=== PATIENT | female | born 1975 | race Caucasian/White ===

== ENCOUNTER 2018-05-27 00:03 | Emergency (ER) | payer OTHER ==
[2018-05-27 00:38] LABS: ABS Basophils 0 10^3/ul (0-0.2); ABS Eosinophils 0.1 10^3/ul (0-0.6); ABS Lymphocytes 1.9 10^3/ul (1.0-4.8); ABS Monocytes 0.5 10^3/ul (0-0.8); ABS Nucleated RBC 0 10^3/ul; Eosinophil % 1.8 % (0-6); Hematocrit 40 % (35-47); Hemoglobin 13.3 g/dl (12.0-16.0); Lymphocyte % 28.8 % (25-47); Mean Corpuscular HGB Conc 33 g/dl (31-36); Mean Corpuscular Hemoglobin 27 pg (27-31); Mean Corpuscular Volume 82 fL (80-97); Mean Platelet Volume 7.6 um3 (7.4-10.4); Nucleated Red Blood Cells % 0.1; Platelet Count 280 10^3/ul (150-450); Red Blood Count 4.87 10^6/ul (4.00-5.40); Red Cell Distribution Width 14 % (10.5-15); White Blood Count 6.6 10^3/ul (3.5-10.8)
[2018-05-27 00:58] LABS: EGFR Non-African American 62.8 (>60)
[2018-05-27] MEDS ORDERED: Morphine VIAL* 4 MG/ML VIAL (1 ml vial) IV ONE ×2 (00:58→02:36)
[2018-05-27] MEDS ORDERED: Ondansetron INJ* 2 MG/ML VIAL IV ONE (00:58)
[2018-05-27] MEDS ORDERED: NS 0.9% 1000 ML* 1,000 ML IV ONE (00:58)
--- NOTE | 2018-05-27 01:07 | ED ---
Abdominal Pain/Female - HPI Summary HPI Summary: The patient is a 43 y/o F presenting to [facility] with a chief complaint of intermittent RUQ pain starting three days ago. There was a sudden onset of pain that hasn't stopped and is worsening, currently rated 10/10 in severity. She additionally c/o nausea without vomiting and some pain the back. She denies abnormal urination and BM and fevers. She has only had a similar pain when she had a cholecystectomy. - History of Current Complaint Chief Complaint: EDAbdPain Stated Complaint: ABD PAIN Time Seen by Provider: 05/27/18 00:53 Hx Obtained From: Patient Onset/Duration: Sudden Onset, Lasting Days - three, Still Present Timing: Intermittent Episode Lasting Severity Initially: Moderate Severity Currently: Severe Pain Intensity: 10 Pain Scale Used: 0-10 Numeric Location: Discrete At: RUQ Radiates: No Aggravating Factor(s): Other: - palpation to back Alleviating Factor(s): Nothing Associated Signs and Symptoms: Positive: Nausea, Other: - POSITIVE: back pain; NEGATIVE: abnormal BM or urination, vomiting, fevers. Negative: Vomiting Allergies/Adverse Reactions: Allergies Allergy/AdvReac Type Severity Reaction Status Date / Time verapamil Allergy Intermediate Hives Verified 05/27/18 00:08 gabapentin [From Neurontin] Allergy Hives Verified 05/27/18 00:08 Home Medications: Home Medications Albuterol 2.5MG/3ML (0.083%)* [Ventolin 2.5 MG/3 ML NEB.YOANNA*] 2.5 mg INH Q6H PRN 05/27/18 [History Confirmed 05/27/18] Albuterol HFA INHALER* [Ventolin HFA Inhaler*] 2 puff INH Q4H PRN 05/27/18 [ History Confirmed 05/27/18] DULoxetine DR CAP* [Cymbalta CAP*] 60 mg PO DAILY 05/27/18 [History Confirmed ] Furosemide TAB* [Lasix TAB*] 40 mg PO DAILY 05/27/18 [History Confirmed 05/27/18 ] Lurasidone(*) [Latuda] 120 mg PO DAILY 05/27/18 [History Confirmed 05/27/18] Pantoprazole TAB (NF) [Protonix TAB (NF)] 40 mg PO DAILY 05/27/18 [History Confirmed 05/27/18] Spironolactone [Aldactone 50 MG-] 50 mg PO DAILY 05/27/18 [History Confirmed 02/06] Tiotropium Br/Olodaterol HCl [Stiolto Respimat Inhal [place]] 2 puff PO DAILY 02/06 [History Confirmed 05/27/18] busPIRone TAB* [Buspar TAB*] 5 mg PO TID 05/27/18 [History Confirmed 05/27/18] rOPINIRole TAB* [Requip TAB*] 0.5 mg PO TID 05/27/18 [History Confirmed 05/27/18 ] traZODone TAB* [Desyrel TAB*] 150 mg PO BEDTIME 05/27/18 [History Confirmed 02/06] PMH/Surg Hx/FS Hx/Imm Hx Endocrine/Hematology History: Denies: Hx Diabetes Respiratory History: Denies: Hx Asthma Sensory History: Reports: Hx Contacts or Glasses Denies: Hx Deafness Opthamlomology History: Reports: Hx Contacts or Glasses Denies: Hx Legally Blind EENT History: Denies: Hx Deafness - Surgical History Surgery Procedure, Year, and Place: cholecystectomy Infectious Disease History: No Infectious Disease History: Denies: Traveled Outside the [place] in Last 30 Days - Family History Known Family History: Positive: Diabetes Review of Systems Negative: Fever Positive: Abdominal Pain - RUQ, Nausea, Other - NEGATIVE: abnormal BM. Negative : Vomiting Genitourinary: Other - NEGATIVE: abnormal urination Positive: Other - mild back pain All Other Systems Reviewed And Are Negative: Yes Physical Exam - Summary Physical Exam Summary: Appearance: Well-appearing, Well-nourished, lying in bed comfortably Skin: Warm, dry, no obvious rash Eyes: sclera anicteric, no conjunctival pallor ENT: mucous membranes moist, pharynx appears normal Neck: Supple, nontender Respiratory: Clear to auscultation, no signs of respiratory distress Cardiovascular: Normal S1, S2. No murmurs. Normal distal pulses in tibial and radial bilaterally. Abdomen: Soft, nontender, normal active bowel sounds present Musculoskeletal: Normal, Strength/ROM Intact Neurological: A&Ox3, awake and alert, mentation is normal, speech is fluent and appropriate Psychiatric: affect is normal, does not appear anxious or depressed Triage Information Reviewed: Yes Vital Signs On Initial Exam: Initial Vitals Temp Pulse Resp BP Pulse Ox 96.9 F 81 16 132/78 98 05/27/18 00:04 05/27/18 00:04 05/27/18 00:04 05/27/18 00:04 05/27/18 00:04 Vital Signs Reviewed: Yes Diagnostics - Vital Signs Vital Signs Temp Pulse Resp BP Pulse Ox 05/27/18 00:04 96.9 F 81 16 132/78 98 - Laboratory Lab Results: Lab Results 05/27/18 Range/Units 00:27 WBC 6.6 (3.5-10.8) 10^3/ul RBC 4.87 (4.00-5.40) 10^6/ul Hgb 13.3 (12.0-16.0) g/dl Hct 40 (35-47) % MCV 82 (80-97) fL MCH 27 (27-31) pg MCHC 33 (31-36) g/dl RDW 14 (10.5-15) % Plt Count 280 (150-450) 10^3/ul MPV 7.6 (7.4-10.4) um3 Neut % (Auto) 60.8 (38-83) % Lymph % (Auto) 28.8 (25-47) % Conway % (Auto) 8.1 H (0-7) % Eos % (Auto) 1.8 (0-6) % Baso % (Auto) 0.5 (0-2) % Absolute Neuts (auto) 4.0 (1.5-7.7) 10^3/ul Absolute Lymphs (auto) 1.9 (1.0-4.8) 10^3/ul Absolute Monos (auto) 0.5 (0-0.8) 10^3/ul Absolute Eos (auto) 0.1 (0-0.6) 10^3/ul Absolute Basos (auto) 0 (0-0.2) 10^3/ul Absolute Nucleated RBC 0 10^3/ul Nucleated RBC % 0.1 Result Diagrams: 05/27/18 00:27 05/27/18 00:27 Lab Statement: Any lab studies that have been ordered have been reviewed, and results considered in the medical decision making process. Abdominal Pain Fem Course/Dx - Diagnoses Provider Diagnoses: RUQ abdominal pain, Constipation, History of gastric bypass Discharge - Sign-Out/Discharge Documenting (check all that apply): Sign-Out Patient Signing out patient TO: Ryan Castaneda - Patient is a sign-out to Dr. Castaneda at shift change, pending Abd/Pel CT results and disposition. Receiving patient FROM: Gal Peterson - Discharge Plan Condition: Improved Disposition: HOME Prescriptions: Docusate Sodium [Colace] 100 mg PO BID PRN #30 capsule PRN Reason: Constipation Hyoscyamine Sulfate [Levsin/Sl] 0.125 mg SL Q4H PRN #30 sub PRN Reason: abdominal cramping Polyethylene Glycol 3350* [Miralax*] 17 gm PO TID PRN #1 bottle PRN Reason: Constipation traMADol TAB* [Ultram*] 50 mg PO Q6HR PRN #10 tab MDD 4 PRN Reason: Severe Pain Patient Education Materials: Constipation (ED), Acute Abdominal Pain (ED) Forms: *Work Release Referrals: [facility] [Outside] [facility] REFERRAL [Outside] - 3 Days Additional Instructions: High fiber diet. Drink plenty of fluids, natural fruit juices will help. Return if worse, fever, vomiting, or other concerns. - Billing Disposition and Condition Condition: IMPROVED Disposition: Home - Attestation Statements Document Initiated by Magaly: Yes Documenting Scribe: Lisa Tinoco Provider For Whom Magaly is Documenting (Include Credential): Dr. Gal Peterson MD Scribe Attestation: Lisa Wheeler scribed for Dr. Gal Peterson MD on 05/27/18 at 1916. Scribe Documentation Reviewed: Yes Provider Attestation: The documentation as recorded by the Lisa fowler accurately reflects the service I personally performed and the decisions made by me, Dr. Gal Peterson MD
[2018-05-27] MEDS ORDERED: Morphine INJ* 4 MG/ML 1 ML SYRINGE (NEW SYRINGE VERSION) ONE (01:49)
[2018-05-27 02:45] LABS: Urine Appearance Clear; Urine Blood Negative (Negative); Urine Color Yellow; Urine Ketones Negative (Negative); Urine Protein Negative (Negative); Urine Specific Gravity 1.015 (1.010-1.030); Urine Urobilinogen Negative (Negative)
[2018-05-27] MEDS ORDERED: Iohexol 300* (CONTRAST) 10 ML SDV IV ONE (05:40)
--- NOTE | 2018-05-27 08:13 | RAD ---
INDICATION: Severe RIGHT-sided abdominal pain. Previous cholecystectomy. COMPARISON: No relevant prior exams available on the [facility] P[facility] for comparison. TECHNIQUE: Multidetector CT images were obtained from the lung bases to the ischial tuberosities with 143 mL Omnipaque 300 IV and oral contrast. Multiplanar reformation. REPORT: VISUALIZED INFERIOR THORAX: Unremarkable visualized inferior thorax. LIVER / GALLBLADDER / PANCREAS / SPLEEN: Post cholecystectomy. Mild prominence of the intra and extrahepatic bile ducts. No conspicuous stones or lesion along the course of the common bile duct. Negative for focal liver lesions. Mild prominence of the pancreatic duct. Unremarkable spleen. ALIMENTARY TRACT: Postsurgical change of Justin-en-Y gastric bypass. Small volume of contrast extends to the excluded segment of the stomach. No CT abnormality of the small bowel loops evident. Unremarkable appendix visualized medial to the cecum. Unremarkable colon with moderate stool. Negative for ascites, free air, or significant hernias.. MESENTERIC: Unremarkable. ADRENAL / GENITOURINARY: Normal adrenal glands and unremarkable kidneys with symmetric nephrograms and pyelograms. Unremarkable nondilated ureters. Largely decompressed urinary bladder limiting assessment without gross abnormality. Post hysterectomy. Unremarkable adnexal regions. RETROPERITONEAL: Negative for lymphadenopathy. VASCULAR: Unremarkable abdominal aorta and iliac arteries. Physiologic distention of the IVC. BONES: Unremarkable. SOFT TISSUE: Unremarkable. IMPRESSION: #. Mild biliary and pancreatic duct dilatation without visualized stone or obstructing lesion. Consider ultrasound for further assessment of the common bile duct. Post cholecystectomy. #.Postsurgical change of Justin-en-Y gastric bypass. Small volume of contrast extends to the excluded segment of the stomach concerning for fistula or dehiscence at the gastric staple line. There are no prior exams for comparison to determine chronicity of this finding. #. Normal appendix documented. #. Negative for ascites or free air. #. Negative for obstructive uropathy.
--- NOTE | 2018-05-27 08:23 | ED ---
Progress - Progress Note Progress Note: Receiving patient sign-out from Dr. Peterson. Patient is still in pain and now states Hx of gastric bypass surgery. CT Abd/Pelvis report: Mild biliary and pancreatic duct dilation without visualized stone or obstructing lesion. Consider ultrasound for further assessment of the common bile duct. Post cholecystectomy. Postsurgical change fo Justin-en-y gastric bypass. Small volume of contrast extends to the excluded segment of the stomach concerning for fistula or dehiscence at the gastric staple line. There are no prior exams for comparison to determine chronicity of this finding. Normal appendix documented. Negative for ascites or free air. Negative for obstructive uropathy. ED Provider has reviewed this report. Morphine did not relieve pain. Switched to 30 mg Toradol. Abdomen U/S results: Mild intra and extrahepatic biliary dilation. No conspicuous stones within the visualized common bile duct. Post cholecystectomy. ED provider has reviewed this report. Plan for discharge. - EKG/XRAY/CT CT: CT A/P Re-Evaluation - Re-Evaluation First Eval Re-Evaluation Time: 08:18 Change: Unchanged Comment: Pt still in pain and now reports Hx of gastric bypass. Second Eval Re-Evaluation Time: 09:20 Change: Unchanged Comment: Morphine is not reducing pain levels. Discussed imaging results and plan to switch to different pain medication. Course/Dx - Course Course Of Treatment: Patient status post gastric bypass with right upper quadrant abdominal pain status post cholecystectomy. CT shows biliary duct dilation. Stone was ruled out with ultrasound. Laboratories are normal. There is significant amount of stool in the area of discomfort. There is also concerned that there may be contrast getting into the remanent stomach after her gastric bypass. She is instructed to follow this up with her surgeon. Pain is improved and she was discharged on symptom control and will follow-up with her doctor in [place], [place]. - Diagnoses Provider Diagnoses: RUQ abdominal pain, Constipation, History of gastric bypass Discharge - Sign-Out/Discharge Documenting (check all that apply): Patient Departure - Discharge, Receiving Sign-Out Receiving patient FROM: Gal Peterson - Discharge Plan Condition: Improved Disposition: HOME Prescriptions: Docusate Sodium [Colace] 100 mg PO BID PRN #30 capsule PRN Reason: Constipation Hyoscyamine Sulfate [Levsin/Sl] 0.125 mg SL Q4H PRN #30 sub PRN Reason: abdominal cramping Polyethylene Glycol 3350* [Miralax*] 17 gm PO TID PRN #1 bottle PRN Reason: Constipation traMADol TAB* [Ultram*] 50 mg PO Q6HR PRN #10 tab MDD 4 PRN Reason: Severe Pain Patient Education Materials: Constipation (ED), Acute Abdominal Pain (ED) Forms: *Work Release Referrals: [facility] [Outside] [facility] REFERR[facility] [Outside] - 3 Days Additional Instructions: High fiber diet. Drink plenty of fluids, natural fruit juices will help. Return if worse, fever, vomiting, or other concerns. - Billing Disposition and Condition Condition: IMPROVED Disposition: Home - Attestation Statements Document Initiated by Magaly: Yes Documenting Scribe: Marcelo Fulton Provider For Whom Magaly is Documenting (Include Credential): Ryan Castaneda MD Scribe Attestation: Marcelo Wheeler, scribed for Ryan Castaneda MD on 05/27/18 at 1326. Scribe Documentation Reviewed: Yes Provider Attestation: The documentation as recorded by the Marcelo fowler accurately reflects the service I personally performed and the decisions made by , Ryan Castaneda MD
[2018-05-27] MEDS ORDERED: Ketorolac INJ* 30 MG/ML 1 ML VIAL IV PUSH ONE (09:20)
--- NOTE | 2018-05-27 09:23 | RAD ---
Indication: RIGHT upper quadrant and epigastric pain. Post cholecystectomy with mild biliary and pancreatic duct dilatation noted on CT of the same date. Comparison: CT of the same date. Technique: RIGHT upper quadrant ultrasound. Report: Appropriate direction flow documented in the portal and hepatic veins. 18.6 cm liver is normal in echogenicity. Negative for focal hepatic lesions. Mild prominence of the intrahepatic bile ducts. 8.9 mm common bile duct. No conspicuous stones within the visualized common bile duct. Post cholecystectomy. Negative for sonographic Collazo's sign. Mild prominence of the pancreatic duct as noted on CT. The pancreatic tail is partially obscured due to bowel gas. No focal pancreatic lesion or peripancreatic inflammatory change evident. Negative for ascites. 10.3 cm RIGHT kidney is unremarkable. IMPRESSION: #. Mild intra and extrahepatic biliary dilatation. No conspicuous stones within the visualized common bile duct. #. Post cholecystectomy.
[2018-05-27 10:19] VITALS: BP 114/79
== END 2018-05-27 09:35 | disposition home or self-care (01) ==
LOC: ED 00:03
DX: R10.11 Right upper quadrant pain (principal); K59.00 Constipation, unspecified; Z98.84 Bariatric surgery status
CPT/HCPCS: 36415; 74177; 76705; 80053; 81003; 83605; 83690; 85025; 86140; 96374; 96375; 96376; 99282; J1885; J2270; J2405; Q9967

== ENCOUNTER 2018-09-08 23:59 | Emergency (ER) | payer BC ==
[2018-09-09] MEDS ORDERED: Ketorolac INJ* 30 MG/ML 1 ML VIAL IM ONE (01:48)
[2018-09-09] MEDS ORDERED: oxyCODONE/Acetamin 5/325 MG* TAB PO ONE (01:48)
[2018-09-09] MEDS ORDERED: predniSONE TAB* 20 MG PO ONE (01:49)
[2018-09-09] MEDS ORDERED: Cyclobenzaprine TAB* 10 MG PO ONE (01:49)
--- NOTE | 2018-09-09 01:54 | ED ---
Back Pain - HPI Summary HPI Summary: This patient is a 43 year old F presenting to [facility] with a chief complaint of right sided back pain since 23:00. Patient reports that the pain radiates to the back of her right leg, down her right arm, and across her abdomen. The patient rates the pain 9/10 in severity. Symptoms aggravated by ambulating. Symptoms alleviated by position and rest. 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 Pt denies any urinary symptoms. Hx sciatica a few years ago but notes that it resolved. - History of Current Complaint Chief Complaint: EDBackInjuryPain Stated Complaint: SEVERE FLANK PAIN Time Seen by Provider: 09/09/18 01:40 Hx Obtained From: Patient Onset/Duration: Sudden Onset, Lasting Hours, Still Present Onset/Duration: Started Hours Ago Timing: Constant Back Pain Location: Is Discrete @ - right back, Radiates To - right arm, right leg, and abdmen Severity Initially: Moderate Severity Currently: Moderate Pain Intensity: 9 Pain Scale Used: 0-10 Numeric Aggravating Symptom(s): Movement, Walking Alleviating Symptom(s): Rest Associated Signs And Symptoms: Negative: Bladder Incontinence - Allergies/Home Medications Allergies/Adverse Reactions: Allergies Allergy/AdvReac Type Severity Reaction Status Date / Time verapamil Allergy Intermediate Hives Verified 07/04/18 20:32 Carbamates Allergy Unknown Verified 07/05/18 11:25 Reaction Details gabapentin [From Neurontin] Allergy Hives Verified 07/04/18 20:32 morphine Allergy Unknown Verified 07/05/18 11:25 Reaction Details Penicillins Allergy Unknown Verified 07/05/18 11:25 Reaction Details PMH/Surg Hx/FS Hx/Imm Hx Endocrine/Hematology History: Denies: Hx Diabetes, Hx Sickle Cell Disease Cardiovascular History: Denies: Hx Hypertension Respiratory History: Denies: Hx Asthma History: Denies: Hx Renal Disease Musculoskeletal History: Reports: Other Musculoskeletal History - sciatica Sensory History: Reports: Hx Contacts or Glasses Denies: Hx Legally Blind, Hx Deafness Opthamlomology History: Reports: Hx Contacts or Glasses Denies: Hx Legally Blind Psychiatric History: Reports: Hx Anxiety, Hx Post Traumatic Stress Disorder, Hx Bipolar Disorder, Other Psychiatric Issues/Disorders - borderline personality disorder - Surgical History Surgery Procedure, Year, and Place: cholecystectomy Infectious Disease History: No Infectious Disease History: Denies: Traveled Outside the [place] in Last 30 Days - Family History Known Family History: Positive: Diabetes - Social History Alcohol Use: None Substance Use Type: Reports: None Smoking Status (MU): Never Smoked Tobacco Review of Systems Negative: Fever Negative: Epistaxis Negative: Chest Pain Positive: Abdominal Pain Musculoskeletal: Other - right back pain, right arm pain, right leg pain All Other Systems Reviewed And Are Negative: Yes Physical Exam - Summary Physical Exam Summary: VITAL SIGNS: Reviewed. GENERAL: Patient is a well-developed and nourished FEMALE who is lying comfortable in the stretcher. Patient is not in any acute respiratory distress. HEAD AND FACE: No signs of trauma. No ecchymosis, hematomas or skull depressions. No sinus tenderness. EYES: PERRLA, EOMI x 2, No injected conjunctiva, no nystagmus. EARS: Hearing grossly intact. Ear canals and tympanic membranes are within normal limits. MOUTH: Oropharynx within normal limits. NECK: Supple, trachea is midline, no adenopathy, no JVD, no carotid bruit, no c- spine tenderness, neck with full ROM. CHEST: Symmetric, no tenderness at palpation LUNGS: Clear to auscultation bilaterally. No wheezing or crackles. CVS: Regular rate and rhythm, S1 and S2 present, no murmurs or gallops appreciated. ABDOMEN: Soft, non-tender. No signs of distention. No rebound no guarding, and no masses palpated. Bowel sounds are normal. Tenderness over the right mid- buttock and right lumbosacral region. EXTREMITIES: no edema, no cyanosis or clubbing. Right straight leg test positive at 10 degrees. NEURO: Alert and oriented x 3. No acute neurological deficits. Speech is normal and follows commands. : No urinary symptoms present SKIN: Dry and warm Triage Information Reviewed: Yes Vital Signs On Initial Exam: Initial Vitals Temp Pulse Resp BP Pulse Ox 96.3 F 75 22 118/80 98 09/09/18 00:01 09/09/18 00:01 09/09/18 00:01 09/09/18 00:01 09/09/18 00:01 Vital Signs Reviewed: Yes Diagnostics - Vital Signs Vital Signs Temp Pulse Resp BP Pulse Ox 09/09/18 00:01 96.3 F 75 22 118/80 98 - Laboratory Lab Statement: Any lab studies that have been ordered have been reviewed, and results considered in the medical decision making process. Back Pain Course/Dx - Course Course Of Treatment: This patient is a 43 year old F with Hx sciatica presenting to [facility] with a chief complaint of right sided back pain since 23: 00. Patient reports that the pain radiates to the back of her right leg, down her right arm, and across her abdomen. The patient rates the pain 9/10 in severity. Symptoms aggravated by ambulating. Symptoms alleviated by position and rest. Pt denies any urinary symptoms. In the ED course the patient was given prednisone, toradol, oxycodone, and flexeril. Patient will be discharged with follow up from PCP. The patient is agreeable with this plan. - Diagnoses Provider Diagnoses: Sciatica Discharge - Sign-Out/Discharge Documenting (check all that apply): Patient Departure - discharge - Discharge Plan Condition: Stable Disposition: HOME Prescriptions: Cyclobenzaprine TAB* [Flexeril 10 MG TAB*] 10 mg PO TID PRN #20 tab MDD 3 PRN Reason: Spasms - Muscle Oxycodone/ASA 5/325 (NF) [Percodan 5/325 (NF)] 1 tab PO Q6H PRN #14 tab MDD 4 PRN Reason: Pain predniSONE TAB* [Deltasone TAB*] 50 mg PO DAILY #5 tab Patient Education Materials: Sciatica (ED) Referrals: [facility] [Outside] Additional Instructions: Follow up with primary care physician in 1-2 days. Return to the emergency department with any new or worsening symptoms. - Attestation Statements Document Initiated by Scribe: Yes Documenting Scribe: Little Rendon Provider For Whom Magaly is Documenting (Include Credential): Marilynn Lau MD Scribe Attestation: Little Wheeler scribed for Marilynn Lau MD on 09/09/18 at 0330. Status of Scribe Document: Ready
[2018-09-09 04:08] VITALS: BP 128/78
== END 2018-09-09 04:00 | disposition home or self-care (01) ==
LOC: ED 23:59
DX: M54.41 Lumbago with sciatica, right side (principal); Z90.49 Acquired absence of other specified parts of digestive tract; Z88.5 Allergy status to narcotic agent; Z88.0 Allergy status to penicillin; Z88.8 Allergy status to other drugs, medicaments and biological substances
CPT/HCPCS: 96372; 99283; A9270-GY; J1885; J7512

== ENCOUNTER 2018-09-30 16:56 | Observation (INO) | payer BC ==
[2018-09-30] MEDS ORDERED: NS 0.9% 1000 ML** 1,000 ML IV ONE (17:01)
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
[2018-09-30] MEDS ORDERED: Iodixanol* (CONTRAST) 320 MG/ML 100 ML SDV IV ONE (17:19)
[2018-09-30 17:46] LABS: ABS Basophils 0 10^3/ul (0-0.2); ABS Eosinophils 0.1 10^3/ul (0-0.6); ABS Lymphocytes 1.4 10^3/ul (1.0-4.8); ABS Monocytes 0.4 10^3/ul (0-0.8); ABS Neutrophils 4.4 10^3/ul (1.5-7.7); ABS Nucleated RBC 0 10^3/ul; Eosinophil % 1.1 %; Hematocrit 40 % (35-47); Hemoglobin 13.1 g/dl (12.0-16.0); Lymphocyte % 22.3 %; Mean Corpuscular HGB Conc 33 g/dl (31-36); Mean Corpuscular Hemoglobin 26 pg (27-31); Mean Corpuscular Volume 80 fL (80-97); Mean Platelet Volume 7.6 fL (7.4-10.4); Nucleated Red Blood Cells % 0; Platelet Count 314 10^3/ul (150-450); Red Blood Count 5.02 10^6/ul (4.00-5.40); Red Cell Distribution Width 14 % (10.5-15); White Blood Count 6.3 10^3/ul (3.5-10.8)
[2018-09-30 17:56] LABS: Activated Partial Thrombo Time 34.4 seconds (26.0-36.3); INR 0.8 (0.77-1.02)
[2018-09-30 18:02] LABS: Albumin 4.3 g/dL (3.2-5.2); Albumin/Globulin Ratio 1.8 (1-3); BUN/Creatinine Ratio 18.2 (8-20); Calcium 8.7 mg/dL (8.6-10.3); EGFR Non-African American 53.7 (>60); Globulin 2.4 g/dL (2-4); HDL Cholesterol 65.4 mg/dL; Total Bilirubin 0.2 mg/dL (0.2-1.0); Total Protein 6.7 g/dL (6.4-8.9)
[2018-09-30] MEDS ORDERED: diPHENhydraMINE PO* 50 MG PO ONE (18:18)
[2018-09-30] MEDS ORDERED: Morphine VIAL* 10 MG/ML 1 ML VIAL IV ONE (18:18)
[2018-09-30] MEDS ORDERED: PROCHLORPERAZINE INJ 5 MG/ML 2 ML VIAL IV ONE (18:20)
[2018-09-30] MEDS ORDERED: Aspirin SUPP* 300 MG PR ONE (20:26)
[2018-09-30] MEDS: Acetaminophen TAB* 325 MG PO PRN (21:27)
[2018-09-30] MEDS ORDERED: Albuterol 2.5 MG/3 ML NEB.SOL* (0.083%) INH PRN (22:30)
[2018-09-30] MEDS ORDERED: Docusate CAP* 100 MG PO PRN (22:30)
[2018-09-30] MEDS ORDERED: Cyclobenzaprine TAB* 10 MG PO PRN (22:30)
[2018-09-30] MEDS ORDERED: traZODone TAB* 100 MG PO SCH (23:00)
[2018-09-30] MEDS: busPIRone TAB* 5 MG PO SCH (23:00)
[2018-09-30] MEDS ORDERED: rOPINIRole TAB* 1 MG PO SCH (23:00)
[2018-09-30] MEDS ORDERED: hydrOXYzine HCL TAB* 50 MG PO SCH (23:00)
[2018-09-30] MEDS ORDERED: Lurasidone(*) 120 MG TAB PO SCH (23:00)
[2018-09-30] MEDS ORDERED: Ropinirole TAB* 0.5 MG TAB PO SCH (23:00)
[2018-09-30] MEDS: Pantoprazole TAB * 40 MG TAB PO SCH (23:01)
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
[2018-10-01 07:29] LABS: ABS Basophils 0 10^3/ul (0-0.2); ABS Eosinophils 0.1 10^3/ul (0-0.6); ABS Lymphocytes 1.4 10^3/ul (1.0-4.8); ABS Monocytes 0.3 10^3/ul (0-0.8); ABS Neutrophils 1.9 10^3/ul (1.5-7.7); ABS Nucleated RBC 0 10^3/ul; Eosinophil % 3.1 %; Hematocrit 38 % (35-47); Hemoglobin 12.5 g/dl (12.0-16.0); Lymphocyte % 38.2 %; Mean Corpuscular HGB Conc 33 g/dl (31-36); Mean Corpuscular Hemoglobin 26 pg (27-31); Mean Corpuscular Volume 80 fL (80-97); Mean Platelet Volume 7.5 fL (7.4-10.4); Nucleated Red Blood Cells % 0; Platelet Count 255 10^3/ul (150-450); Red Blood Count 4.79 10^6/ul (4.00-5.40); Red Cell Distribution Width 14 % (10.5-15); White Blood Count 3.8 10^3/ul (3.5-10.8)
[2018-10-01 07:43] LABS: BUN/Creatinine Ratio 17.3 (8-20); Calcium 8.8 mg/dL (8.6-10.3); EGFR Non-African American 53.7 (>60); Potassium 3.7 mmol/L (3.5-5.0)
[2018-10-01 08:22] VITALS: BP 135/69
[2018-10-01] MEDS ORDERED: hydrOXYzine HCL TAB* 50 MG PO SCH (09:00)
[2018-10-01] MEDS ORDERED: Spironolactone TAB* 25 MG PO SCH (09:00)
[2018-10-01] MEDS ORDERED: Aspirin SUPP* 300 MG PR SCH (09:00)
[2018-10-01] MEDS ORDERED: Ropinirole TAB* 0.5 MG TAB PO SCH (09:00)
[2018-10-01] MEDS ORDERED: DULoxetine DR CAP* 60 MG CAP.DR PO SCH (09:00)
[2018-10-01] MEDS: busPIRone TAB* 5 MG PO SCH (09:10)
[2018-10-01] MEDS: Acetaminophen TAB* 325 MG PO PRN (09:10)
[2018-10-01] MEDS: Pantoprazole TAB * 40 MG TAB PO SCH (09:11)
--- NOTE | 2018-10-01 11:26 | ECHO ---
Patient: JEWELS CASTELAN [facility] Rec#: [id number] : 1975 Date: 10/01/2018 Age: 43y Height: 165.1 cm / 65.0 in Weight: 107.05 kg / 235.9 lbs Sex: F BSA: 2.12 Room#: 446 Admit Date#: 09/30/2018 Type: Inpatient Referring: Vibha Bloom Reading: Paul Tang MD Hand Patcher: Krysten Lainez [facility] Transthoracic Echocardiogram Indication: TIA BP: 125/59 HR: 79 Rhythm: NSR Findings History: TIA,bipolar,anxiety,PTSD. Technical Comments: The study quality is good. Completed at 0940. Left Ventricle: The left ventricular chamber size is normal. Mild concentric left ventricular hypertrophy is observed. Global left ventricular wall motion and contractility are within normal limits. There is normal left ventricular systolic function. The estimated ejection fraction is 50-55%. Normal left ventricular diastolic filling is observed. Left Atrium: The left atrium is mildly dilated. Right Ventricle: The right ventricular cavity size is normal. The right ventricular global systolic function is normal. Right Atrium: The right atrial cavity size is normal. There is no patent foramen ovale visualized. There is no evidence of patent foramen ovale shunting. A patent foramen ovale is not demonstrated with color Doppler and agitated contrast. Aortic Valve: The aortic valve is trileaflet. There is no evidence of aortic regurgitation. There is no evidence of aortic stenosis. Mitral Valve: The mitral valve leaflets are mildly thickened. There is trace to mild mitral regurgitation. Tricuspid Valve: The tricuspid valve leaflets are normal. There is no evidence of tricuspid valve regurgitation. Pulmonic Valve: The pulmonic valve structure is not well visualized. There is no evidence of pulmonic regurgitation. There is no pulmonic stenosis. Pericardium: There is no significant pericardial effusion. A pericardial fat pad is visualized. Aorta: The ascending aorta is not well visualized. There is no dilatation of the aortic arch. There is mild dilatation of the aortic root. Pulmonary Artery: The main pulmonary artery is not well visualized. Venous: The venous system is not well visualized. Contrast: Intravenous contrast was used to help determine presence of intracardiac shunting. Intravenous agitated saline contrast was used to assess intracardiac shunting. Conclusions There is normal left ventricular systolic function. The estimated ejection fraction is 50-55%. Global left ventricular wall motion and contractility are within normal limits. The left ventricular chamber size is normal. Mild concentric left ventricular hypertrophy is observed. The left atrium is mildly dilated. Functionally benign heart valves. A patent foramen ovale is not demonstrated with color Doppler nor agitated contrast. There is no prior echocardiogram available to compare with at this time. Measurements Name Value Normal Range RVIDd (AP) 2D 3.1 cm (0.9 - 2.6) RVDdMajor (2D) 3.5 cm (2.2 - 4.4) RAd ISD 4CH 4.5 cm (3.4 - 4.9) RA (A4C)W 4.1 cm (2.9 - 4.6) IVSd (2D) 1 cm (0.6 - 1) LVPWd (2D) 1.3 cm (0.6 - 1) LVIDd (2D) 3.9 cm (3.6 - 5.4) LVIDs (2D) 3 cm - LV FS (2D) 23 % (25 - 45) Aortic Annulus 2.4 cm (1.4 - 2.6) Ao root diameter (2D) 3.9 cm (2.1 - 3.5) Aortic arch 2.2 cm (1.8 - 3.4) Descending Ao 0.7 cm - LA dimension (AP) 2D 3.9 cm (2.3 - 3.8) LAd ISD 4CH 5.5 cm (2.9 - 5.3) LA ISD 4CH W 3.2 cm (2.5 - 4.5) Name Value Normal Range LA ESV SP 4CH (A/L) 42 ml - LA ESV SP 2CH (A/L) 62 ml - LA ESV BP (A/L) 51 ml - LA ESV BP (A/L) index 23.96 ml/m2 - LA ESV SP 4CH (MOD) 39 ml - LA ESV SP 2CH (MOD) 58 ml - Name Value Normal Range MV E-wave Vmax 0.9 m/sec - MV deceleration time 182 msec - MV A-wave Vmax 0.7 m/sec - MV E:A ratio 1.21 ratio - LV septal e' Vmax 0.11 m/sec - LV lateral e' Vmax 0.1 m/sec - LV E:e' septal ratio 8.18 ratio - LV E:e' lateral ratio 9 ratio - Name Value Normal Range AV Vmax 1.3 m/sec - AV VTI 31.6 cm - AV peak gradient 6.58 mmHg - AV mean gradient 3.91 mmHg - LVOT Vmax 1.2 m/sec - LVOT VTI 29.2 cm - LVOT peak gradient 6.2 mmHg - LVOT mean gradient 3.43 mmHg - Name Value Normal Range MR Vmax 4.3 m/sec - MR VTI 170 cm - Name Value Normal Range IVC diameter 1.8 cm - Name Value Normal Range PV Vmax 0.8 m/sec - PV peak gradient 2.67 mmHg -
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
--- NOTE | 2018-10-01 16:32 | DS ---
CC: Nicole Carr NP; Dr. Reece Humphrey; Dr. Errol Underwood * DISCHARGE SUMMARY: DATE OF ADMISSION: 09/30/18 DATE OF DISCHARGE: 10/01/18 PRIMARY CARE PROVIDER: Nicole Carr NP, in [place], [place]. PSYCHIATRIC: Dr. Reece Humphrey in [place], [place]. ATTENDING PHYSICIAN: Dr. Freddy Calhoun * (dictated by Concepcion Peña NP). PRIMARY DIAGNOSIS: Neurological deficits, complicated migraine versus conversion disorder. SECONDARY DIAGNOSES: 1. Bipolar disorder. 2. Anxiety. 3. Posttraumatic stress disorder. 4. Restless legs syndrome. 5. History of conversion disorder. STUDIES WHILE IN THE HOSPITAL: 1. Brain CT on 09/30/18 reads as no evidence for gross acute infarct, mass effect, or hemorrhage. 2. Chest x-ray on 09/30/18 reads as no evidence for acute disease. 3. EKG on 09/30/18 shows normal sinus rhythm with a rate of 88, QTc of 464. No ischemic changes. 4. Head CTA on 09/30/18 reads as no carotid stenosis. No evidence for large- vessel intracranial thrombus. 5. Transthoracic echocardiogram on 10/01/18 reads as there is normal left ventricular systolic function. The estimated ejection fraction is 50% to 55%. Global left ventricular wall motion and contractility are within normal limits. The left ventricular chamber size is normal. Mild concentric left ventricular hypertrophy is observed. The left atrium is mildly dilated. Functionally benign heart valves. A patent foramen ovale is not demonstrated with color Doppler nor agitated contrast. There is no prior echocardiogram available to compare with at this time. HISTORY OF PRESENT ILLNESS AND HOSPITAL COURSE: Ms. Martin is a 43-year-old female with past medical history of bipolar, anxiety, PTSD, and conversion disorder who presented to the emergency room on 09/30/18 with complaints of stroke-like symptoms. Please see history and physical by Tayla Bloom NP, for a complete summary of the events leading up to this hospitalization. In short, the patient reported dizziness, tremors, difficulties with speech, and a headache. She did report tremors and reported that she had hypoglycemia in the 40s when tested on a meter at home. She presented to the emergency room because of her symptoms. In the emergency room, the patient had imaging as noted above. I will note that the patient was able to remove her earrings and transfer herself from the stretcher to the CT machine, although thereafter was reportedly not able to make certain movements and seemed to be exaggerating her symptoms including a slow stuttering speech. She was also noted to use her cellphone without difficulty. She had lab work, which was essentially unremarkable. She did have a glucose of 100. She had a lipid panel, which showed triglycerides of 96, total cholesterol of 236, LDL of 151, and HDL of 65. Because of the concern for a TIA, the patient was admitted by the hospitalist service. The patient reports that her symptoms resolved completely around 9 p.m. last night, the night of admission. This morning, she was seen by Dr. Underwood from neurology, who felt as though her symptoms were likely customer success representative of either a complicated migraine or conversion disorder. There was a very low suspicion for TIA, CVA, or seizures. The patient was anxious to go home and did not want to stay in the hospital any longer. Dr. Underwood felt as though the patient was stable for discharge from a neurological standpoint, although she would need to follow up with him as an outpatient for an MRI and EEG. He did not feel as though she needed to continue on aspirin. I will note that as of this time a hemoglobin A1c is still pending. She did have a mildly elevated creatinine, though this is consistent with results from 2018. On my exam, the patient reports feeling well. She has no neurological deficits and is able to recount the entire episode yesterday. She does admit to having a history of conversion disorder approximately 7 years ago when she was using illicit drugs. She does follow with a psychiatrist, whom she sees regularly. Ms. Martin is stable for discharge today. Vital signs are as follows: Temp 97.6 , heart rate 67, respiratory rate 17, oxygen saturation 99% on room air, blood pressure 135/69. DISCHARGE MEDICATIONS: Continued Medications: 1. Albuterol nebulizer 1 neb q.6 hours p.r.n. wheezing. 2. Albuterol MDI 2 puffs q.4 hours p.r.n. wheezing. 3. Buspirone 5 mg p.o. t.i.d. 4. Cyclobenzaprine 10 mg p.o. t.i.d. p.r.n. muscle spasms. 5. Docusate 100 mg p.o. b.i.d. p.r.n. constipation. 6. Duloxetine 60 mg p.o. daily. 7. Furosemide 40 mg p.o. daily. 8. Hydroxyzine 100 mg p.o. daily. 9. Hydroxyzine 200 mg p.o. at bedtime. 10. Hyoscyamine 0.125 mg sublingual q.4 hours p.r.n. abdominal cramping. 11. Latuda 120 mg p.o. at bedtime. 12. Pantoprazole 80 mg p.o. daily. 13. MiraLAX 17 g p.o. t.i.d. p.r.n. constipation. 14. ReQuip 1 mg p.o. at bedtime. 15. ReQuip 0.5 mg p.o. daily. 16. Spironolactone 50 mg daily. 17. Trazodone 150 mg p.o. at bedtime. DISCHARGE PLAN: Ms. Martin will be discharged to home. Activity will be as tolerated. Diet will be regular as tolerated. Medications are noted above. The patient can continue her usual medications and there are no medication changes at this point. She has been given a note to remain out of work for the next week. She should follow up with her primary care provider as needed and will need to follow up with Dr. Underwood in approximately 1 week. He reports that his office will call her to schedule an appointment. The patient has been advised by Dr. Underwood to monitor her blood pressure, blood sugar and to watch her cholesterol and caffeine intake. She has been advised to return to the emergency room or nearest hospital for any worsening of symptoms, shortness of breath, lightheadedness, dizziness, chest discomfort, high fevers, chills, night sweats, loss of consciousness, or any other worrisome signs or symptoms. This is a summarized report of a complex medical history and hospital stay. For further details, please see the entire medical record. TIME SPENT: Approximately 35 minutes were spent on this discharge. CONCEPCION PEÑA, WAREHOUSE EXAMINER [id number]/[facility] #: [id number] KRIS
== END 2018-10-01 11:15 | disposition home or self-care (01) ==
LOC: ED 16:56 → MEDTELE 19:52
PROVIDERS: ADMIT Internal Medicine; ATTEND Student in an Organized Health Care Education/Training Program
DX: R29.818 Other symptoms and signs involving the nervous system (principal); G43.909 Migraine, unspecified, not intractable, without status migrainosus; F31.9 Bipolar disorder, unspecified; F41.9 Anxiety disorder, unspecified; F43.10 Post-traumatic stress disorder, unspecified; G25.81 Restless legs syndrome; F44.4 Conversion disorder with motor symptom or deficit; Z88.0 Allergy status to penicillin
CPT/HCPCS: 36415; 70450; 70496; 70498; 71045; 80048; 80053; 80061; 83036; 83605; 84484; 85025; 85610; 85730; 86850; 86900; 86901; 93005; 93306; 96374; 99283; A9270-GY; G0378; J0780; J2270; Q9967

== ENCOUNTER 2018-10-26 08:01 | Emergency (ER) | payer BC ==
--- OUTSIDE RECORDS SUMMARY | 2018-10-26 08:46 | XMS REPORT | Continuity of Care Document ---
:1975 External Reference #:[id number] Author Name Veronique Murillo Care Team Providers Name Role Phone Paul Tang M.D., [facility], 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 Payers Date Identification Numbers Payment Provider Subscriber Policy Number: [id number] [facility] Berenice Martin PayID: [id number] [address] [place] [address] Advance Directives Description No Information Available Problems Description No Information Family History Description No Information Available Social History Type Date Description Comments Sex Unknown Allergies, Adverse Reactions, Alerts Date Description Reaction Status Severity Comments 10/17/2018 Verapamil rash Active Severe 10/17/2018 Soma rash Active Severe 10/17/2018 Neurontin rash Active Medications Medication Date Status Form Strength Qnty SIG Indications Ordering Provider Topamax Active Tablets 25mg 30tabs 1 pill by G43.809 Errol Underwood M.D. bedtime Immunizations Description No Information Available Vital Signs Date Vital Result Comment 10/17/2018 8:48am Height 65 inches 5'5" Weight 237.00 lb Heart Rate 72 /min BP Systolic Sitting 110 mmHg BP Diastolic Sitting 80 mmHg Respiratory Rate 16 /min BMI (Body Mass Index) 39.4 kg/m2 Results Description No Information Available Procedures Date Code Description Status 10/01/2018 81508 ECHO Transthorasic Realtime 2D W Doppler & Color Flow Hosp Completed Encounters Type Date Location Provider Dx Diagnosis Office Visit 10/17/2018 [facility] Errol Underwood G43.809 Other migraine, 8:45a [facility] not intractable, without status migrainosus R47.89 Other speech disturbances Office Visit 10/01/2018 10:37a [facility] Concepcion Casey, R42 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 at [facility]10/17/2018 - Errol Underwood M.D.G43.809 Other migraine, not intractable, without status migrainosusNew Medication:Topamax 25 mg - 1 pill by mouth bedtimeFollow up:follow up in three months. Riboflavin ( vitamin B-2) over the counter 400mg by mouth a day. Call us in 4 weeks to let us know how your are doing. Drink plenty of vphbrO99.89 Other speech disturbances
--- OUTSIDE RECORDS SUMMARY | 2018-10-26 08:46 | XMS REPORT | Continuity of Care Document ---
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 Payers Date Identification Numbers Payment Provider Subscriber Policy Number: [id number] [facility] Employees Berenice Castelan PayID: [id number] [address] [place] [address] Advance Directives Description No Information Available Problems Description No Information Family History Description No Information Available Social History Type Date Description Comments Sex Unknown Tobacco Use Start: Unknown Patient has never smoked Smoking Status Reviewed: 08/07/18 Patient has never smoked Allergies, Adverse Reactions, Alerts Date Description Reaction Status Severity Comments 08/07/2018 Verapamil Active 08/07/2018 Gabapentin Active Medications Medication Date Status Form Strength Qnty SIG Indications Ordering Provider Out Of Work Note 08/23/ Active patient will Benoit 2018 be out of [employer] work from [employer] [id number].c an return back to work on 09-27-18. Colyte With 08/07/ Active Solution 240gm 4000m by mouth as Benoit [employer]acks 2017 Rec l directed Bernabe DO Spironolactone / Active Tablets 50mg Take 1 Unknown 0000 Tablet By Mouth Every Day Pantoprazole / Active Tablets 40mg Take [address] Tablet By Mouth Every Day Must Call MD For Appointment Buspirone HCL / Active Tablets 5mg Take 1 Unknown 0000 Tablet By Mouth Up To 3 Times A Day as Tolerated Maximum Daily Dose Of 3 Per Day Duloxetine HCL / Active Caps DR 60mg Take 1 Unknown 0000 Part Tablet Capsules By Mouth Every Day Maximum Daily Dose 60 MG Ropinirole HCL / Active Tablets 0.5mg Take 1 Unknown 0000 Tablet By Mouth Three Times Daily Trazodone HCL / Active Tablets 100mg Take 1 Unknown 0000 Tablet By Mouth AT Bedtime Along With 50MG Tablet For Total Dose Of 150MG Latuda / Active Tablets 120mg Take 1 Unknown 0000 Tablet By Mouth Every Day Hydroxyzine / Active Capsules 100mg Take 1 Unknown Pamoate 0000 Capsule By Mouth Up To Three Times Daily Maximum Daily Dose Of 3 Tablets Per Day Dicyclomine HCL / Active Capsules 10mg Take 1 Unknown 0000 Capsule By Mouth Four Times Daily Before Meals And AT Bedtime Trazodone HCL / Active Tablets 50mg Take 1 Unknown 0000 Tablet By Mouth AT Bedtime Maximum Daily Dose 50 MG Plus 100 MG For Total 150 MG Daily Immunizations Description No Information Available Vital Signs Date Vital Result Comment 08/07/2018 10:17am Height 65 inches 5'5" Weight 241.00 lb BP Systolic 112 mmHg BP Diastolic 74 mmHg Heart Rate 88 /min BMI (Body Mass Index) 40.1 kg/m2 Results Test Date Facility Test Result H/L Range Note Laboratory test 09/26/2018 [facility] SEE RESULT 1, 2 finding BELOW [facility] Microscopic(!) 07/04/2018 [facility] WBC <pending> [facility] RBC <pending> [facility] Epithelial Cells <pending> [facility] Crystals <pending> [facility] Bacteria <pending> [facility] Mucous <pending> [facility] Amorphous <pending> [facility] Yeast <pending> [facility] Casts <pending> CMP, Magnesium, 07/04/2018 [facility] Magnesium Ser/Plasma <pending> Phosphorus Mass/Vol Phosphorus <pending> CMP(!) 07/04/2018 [facility] Sodium(!) <pending> Potassium(!) <pending> Chloride Serum/Plasma(!) <pending> Carbon Dioxide Ser/Plasm(!) <pending> BUN - Urea Nitrogen(!) <pending> Calcium Ser/Plasma Mass/Vol(!) <pending> Creatinine Serum Mass/Vol(!) <pending> Glucose Serum(!) <pending> BUN/Creatinine Ratio(!) <pending> Albumin Serum/Plasma(!) <pending> Alkaline Phosphatase(!) <pending> Bilirubin Total Mass/Vol(!) <pending> Ast - Sgot <pending> Alt - SGPT <pending> Protein Total <pending> Amylase & Lipase 07/04/2018 [facility] Amylase(!) <pending> Lipase Ser/Plas (!) <pending> Laboratory test 07/04/2018 [facility] C-Reative Protein <pending> finding CBC W/Auto 07/04/2018 [facility] White Blood Count <pending> Differential(!) Ser Auto CNT RBC Red Blood Count <pending> Hemoglobin Blood <pending> Hematocrit <pending> MCV (Corpuscular Volume) <pending> MCH (Corpuscular Hemoglobin) <pending> MCHC (Corpuscular Hemog Conc) <pending> RDW <pending> Platelet Count Blood Auto CNT <pending> MPV <pending> Lymph% <pending> [place]% <pending> Neutrophil % <pending> Absolute Lymphocytes <pending> Absolute Monocytes <pending> Absolute Neutrophils <pending> Laboratory test 07/04/2018 [facility] Inr(!) <pending> finding Xray 07/04/2018 [facility] [place], Abd & Pelvis W/ <pending> Contrast CMP(!) 05/27/2018 [facility] Sodium(!) <pending> Potassium(!) <pending> Chloride Serum/Plasma(!) <pending> Carbon Dioxide Ser/Plasm(!) <pending> BUN - Urea Nitrogen(!) <pending> Calcium Ser/Plasma Mass/Vol(!) <pending> Creatinine Serum Mass/Vol(!) <pending> Glucose Serum(!) <pending> BUN/Creatinine Ratio(!) <pending> Albumin Serum/Plasma(!) <pending> Alkaline Phosphatase(!) <pending> Bilirubin Total Mass/Vol(!) <pending> Ast - Sgot <pending> Alt - SGPT <pending> Protein Total <pending> Laboratory test 05/27/2018 [facility] Lipase Ser/Plas (!) <pending> finding C-Reative Protein <pending> CBC W/Auto 05/27/2018 [facility] White Blood <pending> Differential(!) Count Ser Auto CNT RBC Red Blood Count <pending> Hemoglobin Blood <pending> Hematocrit <pending> MCV (Corpuscular Volume) <pending> MCH (Corpuscular Hemoglobin) <pending> MCHC (Corpuscular Hemog Conc) <pending> RDW <pending> Platelet Count Blood Auto CNT <pending> MPV <pending> Lymph% <pending> [place]% <pending> Neutrophil % <pending> Absolute Lymphocytes <pending> Absolute Monocytes <pending> Absolute Neutrophils <pending> Xray 05/27/2018 [facility] [place], Abd & Pelvis W/ Contrast <pending> Xray 05/27/2018 [facility] [place] US Abdomen Limited <pending> 1 [id number] 2 SEE RESULT BELOW Name: BERENICE CASTELAN : [address]: Benoit Kidd DO Acct: [id number] Unit: [id number] AGE: 43 Location: [facility] Re09/26/18 SEX: F Status: DEP REF SPEC: [id number] NIDA: 09/26/18-[address]: Benoit Kidd DO REQ: [id number] RECD: 09/26/18-161 STATUS: TRI PIÑA DR: Magui Primary Care Phys,NOPCP _ SOURCE: GAS ANTRUM SPDESC: ORDERED: Clotest COMMENTS: [id number] Procedure Result Reported Site Clotest Final 09/27/18- 0753 [facility] Clotest Negative * ML - Main Lab . END OF REPORT DEPARTMENT OF PATHOLOGY, [address] [place] [address] Wili Cole M.D. Director [facility] # [id number] Procedures Description No Information Available Encounters Type Date Location Provider Dx Diagnosis Office Visit 08/07/2018 [facility] Benoit Kidd, R10.11 Right upper 10:15a [facility] DO quadrant pain K21.9 Gastro-esophageal reflux disease without esophagitis K59.00 Constipation, unspecified R10.13 Epigastric pain Z98.84 Bariatric surgery status Z12.11 Encounter for screening for malignant neoplasm of colon Plan of Treatment No Information Available
[2018-10-26] MEDS ORDERED: NS 0.9% 1000 ML** 1,000 ML IV ONE (08:57)
[2018-10-26] MEDS ORDERED: Ketorolac INJ* 30 MG/ML 1 ML VIAL IV PUSH ONE (08:57)
[2018-10-26] MEDS ORDERED: diPHENhydraMINE IV* 50 MG/ML 1 ml VIAL (BENADRYL) IV ONE (08:57)
[2018-10-26] MEDS ORDERED: Metoclopramide IV* 5 MG/ML 2 ML VIAL IV ONE (08:57)
[2018-10-26 09:12] LABS: ABS Basophils 0 10^3/ul (0-0.2); ABS Eosinophils 0.1 10^3/ul (0-0.6); ABS Lymphocytes 1.1 10^3/ul (1.0-4.8); ABS Monocytes 0.4 10^3/ul (0-0.8); ABS Neutrophils 3.6 10^3/ul (1.5-7.7); ABS Nucleated RBC 0 10^3/ul; Eosinophil % 1.2 %; Hematocrit 38 % (35-47); Hemoglobin 12.4 g/dl (12.0-16.0); Lymphocyte % 21.5 %; Mean Corpuscular HGB Conc 32 g/dl (31-36); Mean Corpuscular Hemoglobin 26 pg (27-31); Mean Corpuscular Volume 80 fL (80-97); Mean Platelet Volume 7.3 fL (7.4-10.4); Nucleated Red Blood Cells % 0; Platelet Count 264 10^3/ul (150-450); Red Blood Count 4.83 10^6/ul (4.00-5.40); Red Cell Distribution Width 14 % (10.5-15); White Blood Count 5.2 10^3/ul (3.5-10.8)
[2018-10-26 09:18] LABS: INR 0.8 (0.77-1.02)
[2018-10-26 11:30] VITALS: BP 145/108
[2018-10-26 14:35] LABS: Erythrocyte Sed Rate 7 mm/Hr (0-20)
--- NOTE | 2018-11-02 05:51 | ED ---
Neurological HPI - HPI Summary HPI Summary: Patient is a 43-year-old female (all hx obtained through patient typing on computer) with a recently diagnosed history of complex migraines presenting to the ED with a complaint of worsening migraines which starts at the base of the neck radiating to the right temporal area and into the right side of the face. States she is unable to speak. This has happened before when she has severe migraines. She states this is worse. Migraines have been persistent over the week, the 03/31 migraine began last night while patient was working a double shift. Despite taking her medications, migraines have persisted. She endorses blurry vision, dizziness and unsteady gait, but denies any feeling of the room spinning. She is currently taking topiramate 25 mg daily. She takes ibuprofen for breakthrough migraine PORTILLO, but this has not helped. She does endorse nausea without vomiting. Pt states that she did run out of pain medications. Per pt, Dr. Salazar put her on topamax which she states has helped to manage how many "episodes i have. But when i have breakthrough migraine it's the worst ever." Pt states that it's very difficult to speak "I can't speak. No sound will come out this time. Another reason why i came in." - History of Current Complaint Chief Complaint: EDHeadache Stated Complaint: HEADACHE PER PT FREIND Time Seen by Provider: 10/26/18 08:26 Hx Obtained From: Patient Onset/Duration: Sudden Onset Timing: Constant Onset Severity: Moderate Current Severity: Moderate Seizure Severity: Moderate Pain Intensity: 2 Pain Scale Used: 0-10 Numeric Character: Head Spinning, Lightheaded, Impaired Speech, Typical Migraine Alleviating: Rest Associated Signs and Symptoms: Positive: Negative, Change in Medication, Anxiety. Negative: Unsteady Gait, Visual Changes, Decreased Level of Consciousness, Pain, Neck Pain/Stiffness TPA Considered: No - Additional Pertinent History Primary Care Physician: [id number] Recent Stress Test: No Have you ever had this problem before: Yes - Allergy/Home Medications Allergies/Adverse Reactions: Allergies Allergy/AdvReac Type Severity Reaction Status Date / Time verapamil Allergy Intermediate Hives Verified 10/26/18 08:10 carisoprodol [From Soma] Allergy Hives Verified 10/26/18 08:10 gabapentin [From Neurontin] Allergy Hives Verified 10/26/18 08:10 Penicillins Allergy Unknown Verified 10/26/18 08:10 Reaction Details TIDE LAUNDRY DETERGANT Allergy Hives Uncoded 10/26/18 08:10 Home Medications: Home Medications Topiramate [Topamax] 50 mg PO BID 10/26/18 [History Confirmed 10/26/18] PMH/Surg Hx/FS Hx/Imm Hx Previously Healthy: Yes Endocrine/Hematology History: Denies: Hx Diabetes, Hx Sickle Cell Disease Cardiovascular History: Denies: Hx Hypertension, Hx Pacemaker/ICD Respiratory History: Denies: Hx Asthma History: Denies: Hx Renal Disease Musculoskeletal History: Reports: Other Musculoskeletal History - sciatica Sensory History: Reports: Hx Contacts or Glasses Denies: Hx Legally Blind, Hx Deafness, Hx Hearing Aid Opthamlomology History: Reports: Hx Contacts or Glasses Denies: Hx Legally Blind Neurological History: Reports: Other Neuro Impairments/Disorders - conversion dissorder Psychiatric History: Reports: Hx Anxiety, Hx Post Traumatic Stress Disorder, Hx Bipolar Disorder, Other Psychiatric Issues/Disorders - borderline personality disorder Denies: Hx Panic Disorder - Surgical History Surgery Procedure, Year, and Place: cholecystectomy. GASTRIC BYPASS. C SECTION X2. PARTIAL HYSTERECTOMY. EAR TUBES - Immunization History Hx Pertussis Vaccination: No Immunizations Up to Date: Yes Infectious Disease History: No Infectious Disease History: Denies: Traveled Outside the [place] in Last 30 Days - Family History Known Family History: Positive: Diabetes - Social History Occupation: Employed Full-time Lives: With Family Alcohol Use: None Hx Substance Use: No Substance Use Type: Reports: None Hx Tobacco Use: No Smoking Status (MU): Never Smoked Tobacco Review of Systems Negative: Fever, Chills, Fatigue, Skin Diaphoresis Positive: Photophobia. Negative: Blurred Vision, Diplopia, Drainage, Erythema Negative: Dental Pain, Sore Throat Negative: Palpitations, Chest Pain Negative: Shortness Of Breath, Cough Negative: Arthralgia, Myalgia Positive: Headache. Negative: Weakness, Paresthesia, Numbness, Syncope, Slurred Speech Positive: Anxious All Other Systems Reviewed And Are Negative: Yes Physical Exam Triage Information Reviewed: Yes Vital Signs On Initial Exam: Initial Vitals Temp Pulse Resp BP Pulse Ox 97.2 F 81 17 143/90 100 10/26/18 08:04 10/26/18 08:04 10/26/18 08:04 10/26/18 08:04 10/26/18 08:04 Vital Signs Reviewed: Yes Appearance: Positive: Well-Appearing, Well-Nourished Skin: Positive: Skin Color Reflects Adequate Perfusion Head/Face: Positive: Normal Head/Face Inspection Eyes: Positive: EOMI, ALEXANDRA, Conjunctiva Clear Neck: Positive: Supple, No Lymphadenopathy Respiratory/Lung Sounds: Positive: Clear to Auscultation, Breath Sounds Present Cardiovascular: Positive: RRR, Pulses are Symmetrical in both Upper and Lower Extremities. Negative: Leg Edema Left, Leg Edema Right Musculoskeletal: Positive: Normal, Strength/ROM Intact Neurological: Positive: Sensory/Motor Intact, Alert, Oriented to Person Place, Time, CN Intact II-III, Reflexes Intact, Normal Gait, Facial Symmetry, Other - unable to assess speech - patient unwilling/unable to speak. Negative: Disoriented, Facial Droop, Ataxic Gait, Unable to Assess Gait, Dysarthric Aphasia Psychiatric: Positive: Normal, Affect/Mood Appropriate AVPU Assessment: Alert - [place] Coma Scale Best Eye Response: 4 - Spontaneous Best Motor Response: 6 - Obeys Commands Best Verbal Response: 5 - Oriented Coma Scale Total: 15 Diagnostics - Vital Signs Vital Signs Temp Pulse Resp BP Pulse Ox 10/26/18 11:30 99.1 F 74 18 145/108 100 10/26/18 11:28 145/108 10/26/18 10:30 74 117/74 100 10/26/18 10:04 81 100 10/26/18 09:00 143/76 10/26/18 08:30 142/94 10/26/18 08:25 120/110 10/26/18 08:04 97.2 F 81 17 143/90 100 - Laboratory Lab Results: Lab Results 10/26/18 10/26/18 10/26/18 Range/Units 09:04 09:04 09:04 WBC 5.2 (3.5-10.8) 10^3/ul RBC 4.83 (4.00-5.40) 10^6/ul Hgb 12.4 (12.0-16.0) g/dl Hct 38 (35-47) % MCV 80 (80-97) fL MCH 26 L (27-31) pg MCHC 32 (31-36) g/dl RDW 14 (10.5-15) % Plt Count 264 (150-450) 10^3/ul MPV 7.3 L (7.4-10.4) fL Neut % (Auto) 68.9 % Lymph % (Auto) 21.5 % [place] % (Auto) 8.0 % Eos % (Auto) 1.2 % Baso % (Auto) 0.4 % Absolute Neuts (auto) 3.6 (1.5-7.7) 10^3/ul Absolute Lymphs (auto) 1.1 (1.0-4.8) 10^3/ul Absolute Monos (auto) 0.4 (0-0.8) 10^3/ul Absolute Eos (auto) 0.1 (0-0.6) 10^3/ul Absolute Basos (auto) 0 (0-0.2) 10^3/ul Absolute Nucleated RBC 0 10^3/ul Nucleated RBC % 0 ESR 7 (0-20) mm/Hr INR (Anticoag Therapy) 0.80 (0.77-1.02) Lactic Acid 1.4 (0.5-2.0) mmol/L Result Diagrams: 10/26/18 09:04 Lab Statement: Any lab studies that have been ordered have been reviewed, and results considered in the medical decision making process. NIH Scale - NIH Scale Level of Consciousness: Alert/Keenly Responsive Ask Patient the Month and His/Her Age: Both Correct Ask Pt to Open/Close Eyes and Money Examiner/Release Non-Paretic Hand: Both Correctly Best Gaze (Only Horizontal Eye Movement): Normal Visual Field Testing: No Visual Loss Facial Paresis-Pt to Smile & Close Eyes or Grimace Symmetry: Normal/Symmetrical Motor Function - Right Arm: No Drift-Holds 10 Seconds Motor Function - Left Arm: No Drift-Holds 10 Seconds Motor Function - Right Leg: No Drift-Holds 10 Seconds Motor Function - Left Leg: No Drift-Holds 10 Seconds Limb Ataxia-Must be out of Proportion to Weakness Present: Absent Sensory (Use Pinprick to Test Arms/Legs/Trunk/Face): Normal Best Language (Describe Picture, Name Items): Mute/Global Aphasia Dysarthria (Read Several Words): Normal Extinction and Inattention: No Abnormality Total Score: 3 Re-Evaluation - Re-Evaluation First Eval Change: Improved - patient feeling improved with reglan, toradol and benadryl. Course/Dx - Course Course Of Treatment: Patient is evaluated for migraines which have been worsening despite her topamax as well as the inability to speak. (this has happened before, but she states this has been worse.) During this course, full neuro exam performed which show no acute deficits except for muteness. She continues to smile and laugh on exam and appears in NAD. Reflexes, coordination , muscle strength, sensory, gait and mental status evaluated. All WNL. Answering questions appropriately, however patient is attempting to use sign language and type her answers. She does not speak during this visit. Discussed case with Dr. Salazar who recommends increasing Topirimate to 25mg BID x 1 week and then increased to 50mg BID. She will f/u in his office. Note given for work. She is comfortable with d/c at this time and all questions are answered appropriately by provider. - Diagnoses Provider Diagnoses: Abdominal migraine, Selective mutism Is Visit Related: No - Physician Notifications Discussed Care Of Patient With: Best Salazar Instructed by Provider To: Have Pt Call For Appt. - patient will be seen in office Discharge - Sign-Out/Discharge Documenting (check all that apply): Patient Departure Patient Received Moderate/Deep Sedation with Procedure: No - Discharge Plan Condition: Stable Disposition: HOME Prescriptions: Ondansetron ODT TAB* [Zofran 4 MG Odt TAB*] 4 mg PO Q6H PRN #30 tab.odt MDD 4 PRN Reason: Nausea Topiramate TAB(*) [Topamax 25 MG tab] 25 mg PO BID #60 tab Patient Education Materials: Topiramate (By mouth) Forms: *Work Release Referrals: Best Salazar MD [Medical Doctor] - No Primary Care Phys,NOPCP [Primary Care Provider] - Additional Instructions: As discussed, he will take the Topamax 25 mg tabs twice daily 1 week starting this evening He will increase this dose starting next week to 2 tabs (50mg) twice daily Please call Dr. salazar's office to schedule a follow-up visit For any breakthrough pain not well controlled with the Topamax, take Benadryl, zofran and Tylenol for discomfort - Billing Disposition and Condition Condition: STABLE Disposition: Home
== END 2018-10-26 11:30 | disposition home or self-care (01) ==
LOC: ED 08:01
DX: G43.D0 Abdominal migraine, not intractable (principal); R11.0 Nausea; R51 Headache; R42 Dizziness and giddiness; F94.0 Selective mutism; H53.149 Visual discomfort, unspecified; F41.9 Anxiety disorder, unspecified
CPT/HCPCS: 36415; 70450; 83605; 85025; 85610; 85652; 96361; 96374; 96375; 99283; J1200; J1885; J2765

== ENCOUNTER 2019-02-04 10:47 | Emergency (ER) | payer BC, OTHER ==
--- NOTE | 2019-02-04 11:26 | ED ---
GI/ HPI - HPI Summary HPI Summary: This patient is a 43 year old F presenting to ED with a chief complaint of sudden right flank pain that radiates into the RLQ and groin at 0545 this morning. Patient attempted to urinate for three hours this morning since she had a constant urge. She was able to urinate, described as burning. This has never happened before. Patient went to [facility] where they discovered hematuria. The patient rates the pain 7/10 in severity. Symptoms aggravated by nothing. Symptoms alleviated by nothing. Patient denies fever. PMHx of sciatica but no DM , HTN, asthma, or renal disease. PSHx of cholecystectomy, gastric bypass, C- section x2, partial hysterectomy, ear tubes. FHx of DM. Patient does not use alcohol, tobacco, or substances. - History of Current Complaint Chief Complaint: EDFlankPain Time Seen by Provider: 02/04/19 11:14 Stated Complaint: RIGHT LOWER ABD PAIN Hx Obtained From: Patient Onset/Duration: Started Hours Ago - 0545 this morning, Still Present Timing: Constant, Lasting Hours - Since 0545 this morning Severity: Severe Current Severity: Moderate Pain Intensity: 7 Location of Pain: Radiates to: - RLQ and groin, Flank - Right Pain Characteristics: Burning Pain Radiates to: RLQ, Inguinal Associated Signs and Symptoms: Positive: Hematuria, Flank Pain - Right. Negative: Fever Aggravating Factor(s): Nothing Alleviating Factor(s): Nothing - Additional Pertinent History Primary Care Physician: [id number] - Allergy/Home Medications Allergies/Adverse Reactions: Allergies Allergy/AdvReac Type Severity Reaction Status Date / Time verapamil Allergy Intermediate Hives Verified 02/04/19 13:06 carisoprodol [From Soma] Allergy Hives Verified 02/04/19 13:06 ethinyl estradiol Allergy Congestion Verified 02/04/19 13:06 [From Seasonale ()] gabapentin [From Neurontin] Allergy Hives Verified 02/04/19 13:06 levonorgestrel Allergy Congestion Verified 02/04/19 13:06 [From Seasonale ()] Penicillins Allergy Unknown Verified 02/04/19 13:06 Reaction Details TIDE LAUNDRY DETERGANT Allergy Hives Uncoded 02/04/19 13:06 Home Medications: Home Medications Propranolol TAB* 20 mg PO BID 02/04/19 [History Confirmed 02/04/19] PMH/Surg Hx/FS Hx/Imm Hx Previously Healthy: No Endocrine/Hematology History: Denies: Hx Diabetes, Hx Sickle Cell Disease Cardiovascular History: Denies: Hx Hypertension, Hx Pacemaker/ICD Respiratory History: Denies: Hx Asthma History: Denies: Hx Renal Disease Musculoskeletal History: Reports: Other Musculoskeletal History - sciatica Sensory History: Reports: Hx Contacts or Glasses Denies: Hx Legally Blind, Hx Deafness, Hx Hearing Aid Opthamlomology History: Reports: Hx Contacts or Glasses Denies: Hx Legally Blind Neurological History: Reports: Other Neuro Impairments/Disorders - conversion dissorder Psychiatric History: Reports: Hx Anxiety, Hx Post Traumatic Stress Disorder, Hx Bipolar Disorder, Other Psychiatric Issues/Disorders - borderline personality disorder Denies: Hx Panic Disorder - Surgical History Surgery Procedure, Year, and Place: cholecystectomy. GASTRIC BYPASS. C SECTION X2. PARTIAL HYSTERECTOMY. EAR TUBES Infectious Disease History: No Infectious Disease History: Denies: Traveled Outside the [place] in Last 30 Days - Family History Known Family History: Positive: Diabetes - Social History Alcohol Use: None Hx Substance Use: No Substance Use Type: Reports: None Hx Tobacco Use: No Smoking Status (MU): Never Smoked Tobacco Review of Systems Negative: Fever Positive: Abdominal Pain - RLQ Positive: burning, flank pain, other - Constant urge All Other Systems Reviewed And Are Negative: Yes Physical Exam - Summary Physical Exam Summary: Appearance: The patient is morbidly obese in no acute distress and in no acute pain. Skin: The skin is warm and dry and skin color reflects adequate perfusion. HEENT: The head is normocephalic and atraumatic. The pupils are equal and reactive. The conjunctivae are clear and without drainage. Nares are patent and without drainage. Mouth reveals moist mucous membranes and the throat is without erythema and exudate. The external ears are intact. The ear canals are patent and without drainage. The tympanic membranes are intact. Neck: The neck is supple with full range of motion and non-tender. There are no carotid bruits. There is no neck vein distension. Respiratory: Chest is non-tender. Lungs are clear to auscultation and breath sounds are symmetrical and equal. Cardiovascular: Heart is regular rate and rhythm. There is no murmur or rub auscultated. There is no peripheral edema and pulses are symmetrical and equal. Abdomen: mild right CVA tenderness, mild RUQ tenderness Musculoskeletal: There is no back tenderness noted. Extremities are non-tender with full range of motion. There is good capillary refill. There is no peripheral edema or calf tenderness elicited. Neurological: Patient is alert and oriented to person, place and time. The patient has symmetrical motor strength in all four extremities. Cranial nerves are grossly intact. Deep tendon reflexes are symmetrical and equal in all four extremities. Psychiatric: The patient has an appropriate affect and does not exhibit any anxiety or depression. Triage Information Reviewed: Yes Vital Signs On Initial Exam: Initial Vitals Temp Pulse Resp BP Pulse Ox 97.9 F 66 18 139/64 99 02/04/19 10:48 02/04/19 10:48 02/04/19 10:48 02/04/19 10:48 02/04/19 10:48 Vital Signs Reviewed: Yes Diagnostics - Vital Signs Vital Signs Temp Pulse Resp BP Pulse Ox 02/04/19 10:48 97.9 F 66 18 139/64 99 - Laboratory Result Diagrams: 02/04/19 12:38 02/04/19 12:38 Lab Statement: Any lab studies that have been ordered have been reviewed, and results considered in the medical decision making process. - CT A/P CT Interpretation Completed By: Radiologist Summary of CT Findings: PUNCTATE NONOBSTRUCTING LEFT RENAL CALYCEAL STONE. Dr. Chase has reviewed this radiology report. Re-Evaluation - Re-Evaluation First Eval Re-Evaluation Time: 13:20 Comment: Discussed results with patient. Patient will be discharged home with dx of UTI. Patient understands and agrees with this plan. GIGU Course/Dx - Course Course Of Treatment: Ms. Martin woke up with right flank pain and dysuria this morning. She went to [facility]. Urine dip was positive reportedly. They sent her over with a concern that something else was going on. She was nontoxic in appearance with stable vital signs here although she appeared to be in some pain distress. She was given medication and fluids while labs and a CT were obtained. She is status post hysterectomy. There was no obstructing stone and her labs were unremarkable. She improved with treatment. She was unable to give a urinalysis him however I will treat her for a pyelonephritis at this time with antibiotics and pain medication. - Diagnoses Provider Diagnoses: UTI (urinary tract infection) Discharge - Sign-Out/Discharge Documenting (check all that apply): Patient Departure - Discharge Patient Received Moderate/Deep Sedation with Procedure: No - Discharge Plan Condition: Stable Disposition: HOME Prescriptions: Nitrofurantoin Monohyd/M-Cryst [Macrobid 100 mg Capsule] 100 mg PO BID #10 cap Phenazopyridine 200 mg (NF) [Pyridium 200 MG tab *] 200 mg PO TID #9 tab Patient Education Materials: Urinary Tract Infection in Women (ED) Referrals: [facility] [place] [facility]IAN REFERRAL [Outside] - 3 Days Additional Instructions: Follow up with your primary care provider in 2-3 days. RETURN TO THE ER FOR WORSENING OR CHANGING SYMPTOMS. - Billing Disposition and Condition Condition: STABLE Disposition: Home - Attestation Statements Document Initiated by Scribe: Yes Documenting Scribe: Brad Ross Provider For Whom Magaly is Documenting (Include Credential): Gal Chase MD Scribe Attestation: Brad Wheeler, scribed for Gal Chase MD on 02/04/19 at 1627. Scribe Documentation Reviewed: Yes Provider Attestation: The documentation as recorded by the Brad fowler accurately reflects the service I personally performed and the decisions made by , Gal Chase MD Status of Scribsunny Document: Viewed
[2019-02-04] MEDS ORDERED: Ketorolac INJ* 30 MG/ML 1 ML VIAL IV PUSH ONE (11:33)
[2019-02-04] MEDS ORDERED: HYDROmorphone INJ1* 1 MG/ML SYRINGE IV SLOW PU ONE (11:33)
[2019-02-04] MEDS ORDERED: NS 0.9% 1000 ML** 1,000 ML IV ONE (11:33)
[2019-02-04] MEDS ORDERED: Ondansetron INJ* 2 MG/ML VIAL IV ONE (11:33)
[2019-02-04 12:45] LABS: ABS Eosinophils 0.1 10^3/ul (0-0.6); ABS Lymphocytes 1.6 10^3/ul (1.0-4.8); ABS Monocytes 0.6 10^3/ul (0-0.8); ABS Neutrophils 7.6 10^3/ul (1.5-7.7); Eosinophil % 0.7 %; Hematocrit 38 % (35-47); Hemoglobin 12.6 g/dL (12.0-16.0); Mean Corpuscular HGB Conc 33 g/dL (31-36); Mean Corpuscular Hemoglobin 26 pg (27-31); Mean Corpuscular Volume 80 fL (80-97); Mean Platelet Volume 7.8 fL (7.4-10.4); Platelet Count 248 10^3/uL (150-450); Red Blood Count 4.79 10^6 /uL (3.70-4.87); Red Cell Distribution Width 15 % (10-15); White Blood Count 9.8 10^3/uL (3.5-10.8)
[2019-02-04] MEDS ORDERED: PROCHLORPERAZINE INJ 5 MG/ML 2 ML VIAL IV PRN (12:59)
[2019-02-04 13:00] LABS: Albumin 3.9 g/dL (3.2-5.2); Anion Gap 7 mmol/L (2-11); CO2 Carbon Dioxide 20 mmol/L (22-32); Calcium 9.2 mg/dL (8.6-10.3); Chloride 109 mmol/L (101-111); Potassium 4.4 mmol/L (3.5-5.0); Sodium 136 mmol/L (135-145)
[2019-02-04 13:06] LABS: ALT 25 U/L (7-52); AST 23 U/L (13-39); Albumin/Globulin Ratio 1.7 (1-3); Alkaline Phosphatase 61 U/L (34-104); Blood Urea Nitrogen 18 mg/dL (6-24); C Reactive Protein < 1.00 mg/L (<8.01); EGFR African American 67.8 (>60); EGFR Non-African American 56.1 (>60); Globulin 2.3 g/dL (2-4); Glucose 101 mg/dL (70-100); Total Protein 6.2 g/dL (6.4-8.9)
[2019-02-04 13:33] VITALS: BP 113/71
== END 2019-02-04 13:30 | disposition home or self-care (01) ==
LOC: ED 10:47
DX: N39.0 Urinary tract infection, site not specified (principal); R31.9 Hematuria, unspecified; N20.0 Calculus of kidney; Z90.49 Acquired absence of other specified parts of digestive tract; Z98.84 Bariatric surgery status; Z90.711 Acquired absence of uterus with remaining cervical stump; Z88.0 Allergy status to penicillin; Z91.048 Other nonmedicinal substance allergy status
CPT/HCPCS: 36415; 74176; 80053; 83605; 85025; 86140; 96361; 96374; 96375; 99284; J0780; J1170; J1885; J2405

== ENCOUNTER 2019-03-01 08:59 | Emergency (ER) | payer MEDICAID, OTHER ==
[2019-03-01] MEDS ORDERED: predniSONE TAB* 20 MG PO ONE (09:31)
[2019-03-01] MEDS: Cyclobenzaprine TAB* 10 MG PO ONE ×2 (09:54→09:56)
[2019-03-01] MEDS ORDERED: Methocarbamol TAB* 500 MG PO ONE (09:56)
--- NOTE | 2019-03-01 09:58 | ED ---
Back Pain - HPI Summary HPI Summary: Pt. is a 43 y.o female who presents to the ER for right hip/low back pain that started a few days ago. Pt. states she has a hx sciatica and pain is similar today. Pt. denies any injury or falls. Pain radiates into leg with intermittent paresthesia. Pt. denies leg numbness, weakness, fever, abd. pain, bowel or bladder incontinence or retention. Sxs are mild in severity. Movement makes sxs worse. Nothing makes sxs better. Pt. states she was rx a muscle relaxer ( orphenadrine) in the past that usually helps. - History of Current Complaint Chief Complaint: EDBackInjuryPain Stated Complaint: HIP PAIN PER PT Time Seen by Provider: 03/01/19 09:09 Hx Obtained From: Patient Pain Intensity: 10 - Allergies/Home Medications Allergies/Adverse Reactions: Allergies Allergy/AdvReac Type Severity Reaction Status Date / Time verapamil Allergy Intermediate Hives Verified 02/04/19 13:06 carisoprodol [From Soma] Allergy Hives Verified 02/04/19 13:06 ethinyl estradiol Allergy Congestion Verified 02/04/19 13:06 [From Seasonale (91)] gabapentin [From Neurontin] Allergy Hives Verified 02/04/19 13:06 levonorgestrel Allergy Congestion Verified 02/04/19 13:06 [From Seasonale ()] Penicillins Allergy Unknown Verified 02/04/19 13:06 Reaction Details TIDE LAUNDRY DETERGANT Allergy Hives Uncoded 02/04/19 13:06 PMH/Surg Hx/FS Hx/Imm Hx Previously Healthy: Yes Endocrine/Hematology History: Denies: Hx Diabetes, Hx Sickle Cell Disease Cardiovascular History: Denies: Hx Hypertension, Hx Pacemaker/ICD Respiratory History: Denies: Hx Asthma History: Denies: Hx Renal Disease Musculoskeletal History: Reports: Other Musculoskeletal History - sciatica Sensory History: Reports: Hx Contacts or Glasses Denies: Hx Legally Blind, Hx Deafness, Hx Hearing Aid Opthamlomology History: Reports: Hx Contacts or Glasses Denies: Hx Legally Blind Neurological History: Reports: Other Neuro Impairments/Disorders - conversion dissorder Psychiatric History: Reports: Hx Anxiety, Hx Post Traumatic Stress Disorder, Hx Bipolar Disorder, Other Psychiatric Issues/Disorders - borderline personality disorder Denies: Hx Panic Disorder - Surgical History Surgery Procedure, Year, and Place: cholecystectomy. GASTRIC BYPASS. C SECTION X2. PARTIAL HYSTERECTOMY. EAR TUBES Infectious Disease History: No Infectious Disease History: Denies: Traveled Outside the [place] in Last 30 Days - Family History Known Family History: Positive: Diabetes, Non-Contributory - Social History Occupation: Unemployed Lives: With Family Alcohol Use: None Hx Substance Use: No Substance Use Type: Reports: None Hx Tobacco Use: No Smoking Status (MU): Never Smoked Tobacco Review of Systems Constitutional: Negative Negative: Fever, Chills Gastrointestinal: Negative Negative: Abdominal Pain Genitourinary: Negative Negative: dysuria Positive: Other - right lower back pain Skin: Negative Negative: Rash Neurological: Negative Negative: Weakness, Paresthesia, Numbness All Other Systems Reviewed And Are Negative: Yes Physical Exam Triage Information Reviewed: Yes Vital Signs On Initial Exam: Initial Vitals Temp Pulse Resp BP Pulse Ox 97.8 F 75 18 123/62 95 03/01/19 09:02 03/01/19 09:02 03/01/19 09:02 03/01/19 09:02 03/01/19 09:02 Vital Signs Reviewed: Yes Appearance: Positive: Well-Appearing - Pt. lying on bed on left side, appears uncomfortable but nontoxic. SO present. Skin: Positive: Warm, Dry Head/Face: Positive: Normal Head/Face Inspection Eyes: Positive: Normal, EOMI, ALEXANDRA Neck: Positive: Supple Respiratory/Lung Sounds: Positive: Clear to Auscultation, Breath Sounds Present Cardiovascular: Positive: Normal, RRR Musculoskeletal: Positive: Other - 5/5 strength in bilateral LEs with flexion and extension. Pain to right SI joint. Neurological: Positive: Normal, CN Intact II-III Psychiatric: Positive: Affect/Mood Appropriate Diagnostics - Vital Signs Vital Signs Temp Pulse Resp BP Pulse Ox 03/01/19 09:02 97.8 F 75 18 123/62 95 - Laboratory Lab Statement: Any lab studies that have been ordered have been reviewed, and results considered in the medical decision making process. Back Pain Course/Dx - Course Course Of Treatment: Patient presenting with exacerbation of lower back pain. She has no neurological deficits evidence of cauda equina syndrome. Patient given a dose of muscle relaxer and prednisone in the ER. Prescription for orphenadrine and prednisone. Patient will follow up with her family doctor. Advised warm compresses and gentle stretching. Return to the ER if symptoms change or worsen. - Diagnoses Differential Diagnosis/HQI/PQRI: Positive: Herniated Disc, Strain, Sprain Provider Diagnoses: Sciatica Discharge - Sign-Out/Discharge Documenting (check all that apply): Patient Departure Patient Received Moderate/Deep Sedation with Procedure: No - Discharge Plan Condition: Good Disposition: HOME Prescriptions: Orphenadrine Citrate [Orphenadrine Citrate ER] 100 mg PO BID #10 tablet.er predniSONE TAB* [Deltasone 20 MG TAB*] 40 mg PO DAILY #10 tab Patient Education Materials: Sciatica (ED) Forms: *Work Release Referrals: [facility] [Outside] - 3 Days Additional Instructions: Schedule a follow up appointment with the [facility] Medication as directed Apply warm compresses Avoid heavy lifting Activity as tolerated Return to ER if symptoms change or worsen - Billing Disposition and Condition Condition: GOOD Disposition: Home
[2019-03-01 10:07] VITALS: BP 92/49
== END 2019-03-01 10:06 | disposition home or self-care (01) ==
LOC: ED 08:59
DX: M54.41 Lumbago with sciatica, right side (principal); Z88.0 Allergy status to penicillin; Z88.8 Allergy status to other drugs, medicaments and biological substances
CPT/HCPCS: 99282; A9270-GY; J7512

== ENCOUNTER 2019-03-02 09:14 | Emergency (ER) | payer MEDICAID ==
--- NOTE | 2019-03-02 09:55 | ED ---
Neurological HPI - HPI Summary HPI Summary: A 43 y/o female presents to [facility] with a chief complaint of having difficulty speaking since last night. In the ED room the patient is communicating by typing on her computer. She claims that she would stop in the middle of her thoughts and actions and did not know what she was doing last night. She says that she gets cluster migraines and sees Dr. Underwood. She claims that her migraines are different but says that She takes 75 mg Topamax at night at 50mg in the morning every day. She says that her pain is in the right side of her head. She has been rescheduled for Dr. Underwood back to March. She says that her hip gave out two days ago while playing softball and she thinks that she strained her back and re-injured her sciatica. She came to the ED yesterday, and the PA gave her muscle relaxers and steroids because she cannot tolerate ibuprofen. She says that she had back surgery and the last time she saw her neurosurgeon from [place] was years ago. She says that last night she had difficulty walking with her right leg, feeling like her leg was made out of concrete. She claims that she has been dealing with this intermittently since 2011, but the pain was manageable. She had trouble bearing weight on her right leg. Her head pain is an 8/10 in severity and her right leg pain is around a 9/ 10 in severity. Her pain is around her right hip and buttocks. She denies fevers , sore throat, palpitations, urinary or fecal incontinence, vaginal or rectal numbness. She reports CP. Pt refused a rectal exam. SHx hysterectomy. - History of Current Complaint Chief Complaint: EDNeurologicalDeficit Stated Complaint: DIFFICULTY SPEAKING PER PT Time Seen by Provider: 03/02/19 09:37 Hx Obtained From: Patient Onset/Duration: Sudden Onset, Started hours ago, Still Present Timing: Constant Onset Severity: Severe Current Severity: Severe Pain Intensity: 9 Pain Scale Used: 0-10 Numeric Character: Impaired Speech Aggravating: Nothing Alleviating: Nothing Associated Signs and Symptoms: Positive: Headache - cluster migraines, Impaired Speech, Chest Pain. Negative: Numbness, Incontinent Bladder/Bowel, Fever - Additional Pertinent History Primary Care Physician: [id number] - Allergy/Home Medications Allergies/Adverse Reactions: Allergies Allergy/AdvReac Type Severity Reaction Status Date / Time verapamil Allergy Intermediate Hives Verified 03/02/19 09:22 carisoprodol [From Soma] Allergy Hives Verified 03/02/19 09:22 ethinyl estradiol Allergy Congestion Verified 03/02/19 09:22 [From Seasonale ()] gabapentin [From Neurontin] Allergy Hives Verified 03/02/19 09:22 levonorgestrel Allergy Congestion Verified 03/02/19 09:22 [From Seasonale ()] Penicillins Allergy Unknown Verified 03/02/19 09:22 Reaction Details TIDE LAUNDRY DETERGANT Allergy Hives Uncoded 02/04/19 13:06 Home Medications: Home Medications Acetaminophen [Acetaminophen 8 Hour] 650 mg PO Q4HR PRN 03/02/19 [History Confirmed 03/02/19] Buspirone HCl 7.5 mg PO BID 03/02/19 [History Confirmed 03/02/19] Linaclotide (NF) [Linzess (NF)] 290 mcg PO DAILY 03/02/19 [History Confirmed 08/09] Propranolol TAB* [Inderal TAB*] 20 mg PO BID 03/02/19 [History Confirmed ] Ropinirole TAB* [Requip TAB*] 0.5 mg PO TID 03/02/19 [History Confirmed 03/02/19 ] Tiotropium Brom/Olodaterol(NF) [Stiolto Respimat Inh Reliance (60 puff)(NF)] 1 puff INH BID 03/02/19 [History Confirmed 03/02/19] Topiramate TAB(*) [Topamax 25 MG tab] 50 mg PO QAM 03/02/19 [History Confirmed 03/02/19] Topiramate TAB(*) [Topamax 25 MG tab] 75 mg PO QPM 03/02/19 [History Confirmed 03/02/19] PMH/Surg Hx/FS Hx/Imm Hx Endocrine/Hematology History: Denies: Hx Diabetes, Hx Sickle Cell Disease Cardiovascular History: Denies: Hx Hypertension, Hx Pacemaker/ICD Respiratory History: Denies: Hx Asthma History: Denies: Hx Renal Disease Musculoskeletal History: Reports: Other Musculoskeletal History - sciatica Sensory History: Reports: Hx Contacts or Glasses Denies: Hx Legally Blind, Hx Deafness, Hx Hearing Aid Opthamlomology History: Reports: Hx Contacts or Glasses Denies: Hx Legally Blind Neurological History: Reports: Other Neuro Impairments/Disorders - conversion dissorder Psychiatric History: Reports: Hx Anxiety, Hx Post Traumatic Stress Disorder, Hx Bipolar Disorder, Other Psychiatric Issues/Disorders - borderline personality disorder Denies: Hx Panic Disorder - Surgical History Surgery Procedure, Year, and Place: cholecystectomy. GASTRIC BYPASS. C SECTION X2. PARTIAL HYSTERECTOMY. EAR TUBES Infectious Disease History: No Infectious Disease History: Denies: Traveled Outside the [place] in Last 30 Days - Family History Known Family History: Positive: Diabetes - Social History Alcohol Use: None Hx Substance Use: No Substance Use Type: Reports: None Hx Tobacco Use: No Smoking Status (MU): Never Smoked Tobacco Review of Systems Negative: Fever Negative: Sore Throat Positive: Chest Pain. Negative: Palpitations Negative: incontinence Positive: Arthralgia - right hip pain, Myalgia - right leg and gluteus pain Neurological: Other Positive: Headache - cluster migraine. Negative: Numbness - vaginal or rectal All Other Systems Reviewed And Are Negative: Yes Physical Exam - Summary Physical Exam Summary: VITAL SIGNS: Reviewed. GENERAL: Patient is a well-developed and nourished FEMALE who is lying comfortable in the stretcher. Patient is not in any acute respiratory distress. HEAD AND FACE: No signs of trauma. No ecchymosis, hematomas or skull depressions. No sinus tenderness. EYES: PERRLA, EOMI x 2, No injected conjunctiva, no nystagmus. EARS: Hearing grossly intact. Ear canals and tympanic membranes are within normal limits. MOUTH: Oropharynx within normal limits. NECK: Supple, trachea is midline, no adenopathy, no JVD, no carotid bruit, no c- spine tenderness, neck with full ROM. CHEST: Symmetric, no tenderness at palpation. LUNGS: Clear to auscultation bilaterally. No wheezing or crackles. CVS: Regular rate and rhythm, S1 and S2 present, no murmurs or gallops appreciated. ABDOMEN: Soft, non-tender. No signs of distention. No rebound, no guarding, and no masses palpated. Bowel sounds are normal. EXTREMITIES: paraspinal muscle tenderness in lumbar spine and right gluteus. Straight leg test positive 45 degrees, good pulses and good capillary refill. NEURO: Alert and oriented x 3. No acute neurological deficits. Speech is normal and follows commands. SKIN: Dry and warm. Pt refused a rectal exam. Triage Information Reviewed: Yes Vital Signs On Initial Exam: Initial Vitals Temp Pulse Resp BP Pulse Ox 99.5 F 94 16 131/78 95 03/02/19 09:16 03/02/19 09:16 03/02/19 09:16 03/02/19 09:16 03/02/19 09:16 Vital Signs Reviewed: Yes Diagnostics - Vital Signs Vital Signs Temp Pulse Resp BP Pulse Ox 03/02/19 09:16 99.5 F 94 16 131/78 95 - Laboratory Result Diagrams: 03/02/19 10:08 03/02/19 10:08 Lab Statement: Any lab studies that have been ordered have been reviewed, and results considered in the medical decision making process. - Radiology lumbar spine x-ray Radiology Interpretation Completed By: Radiologist Summary of Radiographic Findings: 1. No fracture or traumatic malalignment of the lumbar spine. 2. Mild facet arthropathy in the lower lumbar spine. 3. Surgical material as above. ED physician has reviewed this imaging report. Re-Evaluation - Re-Evaluation First Eval Re-Evaluation Time: 12:41 Change: Improved Comment: Pt is able to talk now and ambulate to the bathroom. Course/Dx - Course Assessment/Plan: A 43 y/o female presents to [facility] with a chief complaint of having difficulty speaking since last night. In the ED room the patient is communicating by typing on her computer. She claims that she would stop in the middle of her thoughts and actions and did not know what she was doing last night. She says that she gets cluster migraines and sees Dr. Underwood. She claims that her migraines are different but says that She takes 75 mg Topamax at night at 50mg in the morning every day. She says that her pain is in the right side of her head. She has been rescheduled for Dr. Underwood back to March. She says that her hip gave out two days ago while playing softball and she thinks that she strained her back and re-injured her sciatica. She came to the ED yesterday, and the PA gave her muscle relaxers and steroids because she cannot tolerate ibuprofen. She says that she had back surgery and the last time she saw her neurosurgeon from [place] was years ago. She says that last night she had difficulty walking with her right leg, feeling like her leg was made out of concrete. She claims that she has been dealing with this intermittently since 2011, but the pain was manageable. She had trouble bearing weight on her right leg. Her head pain is an 8/10 in severity and her right leg pain is around a 9/10 in severity. Her pain is around her right hip and buttocks. She denies fevers, sore throat, palpitations, urinary or fecal incontinence, vaginal or rectal numbness. She reports CP. Pt refused a rectal exam. SHx hysterectomy. Blood work without any significant abnormality. Lumbar x-ray impression: No fracture or traumatic malalignment of the lumbar spine. Mild facet arthropathy in the lower lumbar spine. Surgical material as above. In the ED course the patient was placed in a campus monitor, IV access was obtained, IV fluids were started. The patient denies any urinary and fecal dysfunction. Patient declined rectal exam. The patient is able to move all extremities however she reports pain in the right buttocks down to the right leg. In the physical exam sensory is normal. Extremities also normal. I have no suspicion for cauda equina. The patient also reports that she has an acute episode of migraine headache. Therefore, the patient was given IV fluids, Solu- Medrol, Toradol, Reglan and she declined Benadryl. On 10/26/18 the patient had a head CT which is negative for acute intracranial pathology. The patient also had an MRI of the brain on 10/16/18 and a CTA in 09/30/18. All these testings have been negative. Therefore I do not believe that the patient would benefit from another head CT. The patient doesnt have any acute neurological focal deficits. After medications of the symptoms are improved. At this time the patient is able to talk and also the patient is able to ambulate. Therefore, the patient will be discharged home with follow-up with PCP. Patient is hemodynamically stable alert and 3. At this point I discussed all the findings and test results with the patient. She was instructed to return to the emergency room immediately if any of the symptoms return or worsens. They understand and agree. Neurological exam before discharge: Patient is alert and oriented x 3. No acute neurological deficits. Patient vital signs are stable. Patient is to follow up with PCP in the next 2 3 days. They understand and agree. Plan of care was discussed with the patient and patient understands and agrees with the plan of care. All questions were answered at patient satisfaction. There were no further complaints or concerns. - Diagnoses Provider Diagnoses: Migraine headache, Sciatica Discharge - Sign-Out/Discharge Documenting (check all that apply): Patient Departure - DC Patient Received Moderate/Deep Sedation with Procedure: No - Discharge Plan Condition: Stable Disposition: HOME Prescriptions: HYDROcodone/ACETAMIN 5-325 MG* [[place] 5-325 TAB*] 1 tab PO Q6H PRN #10 tab MDD 4 PRN Reason: Pain Patient Education Materials: Migraine Headache (ED), Sciatica (ED) Referrals: [facility] [Outside] Additional Instructions: FOLLOW UP WITH YOUR PRIMARY CARE PROVIDER WITHIN 2-3 DAYS RETURN TO THE ED FOR ANY WORSENING OR NEW SYMPTOMS. - Billing Disposition and Condition Condition: STABLE Disposition: Home - Attestation Statements Document Initiated by Almitaibe: Yes Documenting Scribe: Anup Sainz Provider For Whom Scribe is Documenting (Include Credential): Omar Samano MD Scribe Attestation: Anup Wheeler scribed for Omar Samano MD on 03/03/19 at 1045. Scribe Documentation Reviewed: Yes Provider Attestation: The documentation as recorded by the Anup fowler accurately reflects the service I personally performed and the decisions made by Omar diaz MD Status of Scribe Document: Viewed
[2019-03-02] MEDS ORDERED: Dexamethasone IV* 4 MG/ML 5 ML VIAL (20 MG) IVPB ONE (10:02)
[2019-03-02] MEDS ORDERED: Metoclopramide IV* 5 MG/ML 2 ML VIAL IV ONE (10:02)
[2019-03-02] MEDS ORDERED: Ketorolac INJ* 30 MG/ML 1 ML VIAL IV PUSH ONE (10:02)
[2019-03-02] MEDS ORDERED: Orphenadrine Citrate IV* 30 MG/ML 2 ML VIAL IV ONE (10:02)
[2019-03-02 10:29] LABS: ABS Lymphocytes 0.7 10^3/ul (1.0-4.8); ABS Monocytes 0.4 10^3/ul (0-0.8); ABS Neutrophils 7.2 10^3/ul (1.5-7.7); Hematocrit 39 % (35-47); Hemoglobin 12.7 g/dL (12.0-16.0); Lymphocyte % 8.4 %; Mean Corpuscular HGB Conc 32 g/dL (31-36); Mean Corpuscular Hemoglobin 26 pg (27-31); Mean Corpuscular Volume 81 fL (80-97); Mean Platelet Volume 7.6 fL (7.4-10.4); Platelet Count 247 10^3/uL (150-450); Red Blood Count 4.83 10^6 /uL (3.70-4.87); Red Cell Distribution Width 15 % (10-15); White Blood Count 8.4 10^3/uL (3.5-10.8)
[2019-03-02 10:45] LABS: ALT 22 U/L (7-52); AST 17 U/L (13-39); Albumin 4.2 g/dL (3.2-5.2); Albumin/Globulin Ratio 1.6 (1-3); Alkaline Phosphatase 61 U/L (34-104); Anion Gap 6 mmol/L (2-11); BUN/Creatinine Ratio 23.8 (8-20); Blood Urea Nitrogen 20 mg/dL (6-24); C Reactive Protein < 1.00 mg/L (<8.01); CO2 Carbon Dioxide 21 mmol/L (22-32); Calcium 9.7 mg/dL (8.6-10.3); Chloride 110 mmol/L (101-111); EGFR African American 88.7 (>60); EGFR Non-African American 73.3 (>60); Globulin 2.6 g/dL (2-4); Glucose 150 mg/dL (70-100); Sodium 137 mmol/L (135-145); Total Protein 6.8 g/dL (6.4-8.9)
[2019-03-02 13:29] VITALS: BP 110/56
== END 2019-03-02 13:00 | disposition home or self-care (01) ==
LOC: ED 09:14
DX: G43.909 Migraine, unspecified, not intractable, without status migrainosus (principal); M54.41 Lumbago with sciatica, right side; M46.96 Unspecified inflammatory spondylopathy, lumbar region; R07.89 Other chest pain; F41.9 Anxiety disorder, unspecified; Z88.0 Allergy status to penicillin; Z88.8 Allergy status to other drugs, medicaments and biological substances
CPT/HCPCS: 36415; 72100; 80053; 83690; 85025; 86140; 96374; 96375; 99285; J1100; J1885; J2360; J2765

== ENCOUNTER 2019-04-09 18:36 | Emergency (ER) | payer OTHER ==
[2019-04-09] MEDS ORDERED: Ketorolac *IM* INJ* 60 MG/2 ML VIAL IM ONE (21:20)
[2019-04-09] MEDS ORDERED: Acetaminophen TAB* 325 MG PO ONE (21:21)
--- NOTE | 2019-04-09 21:33 | ED ---
Lower Extremity - HPI Summary HPI Summary: Pt is a 44 y/o F presenting to the ED with a chief complaint of pain. About six weeks ago, she hurt the side of her foot, and was on crutches for two weeks, then a cane for two weeks, but she feels as though it has not healed properly. She states that about 3 weeks ago, she noticed some pain in her bilateral feet, which slowly progressed throughout her body. As of today, she has been experiencing episodes of sharp, shooting pain throughout her entire body that last for a couple of minutes at a time. She reports myalgia, arthralgia, and subjective fever. Sx aggravated by touch. - History of Current Complaint Chief Complaint: EDExtremityLower Stated Complaint: PAIN RADIATING THROUGH BODY PER PT Time Seen by Provider: 04/09/19 21:05 Hx Obtained From: Patient Mechanism Of Injury: Unknown Onset/Duration: Still Present Severity Initially: Moderate Severity Currently: Severe Pain Intensity: 9 Timing: Intermittent, Lasting Minutes Location: Is Diffuse Character Of Pain: Sharp Associated Signs And Symptoms: Positive: Fever Aggravating Factor(s): Other - touch Alleviating Factor(s): Nothing - Allergies/Home Medications Allergies/Adverse Reactions: Allergies Allergy/AdvReac Type Severity Reaction Status Date / Time verapamil Allergy Intermediate Hives Verified 03/02/19 09:22 carisoprodol [From Soma] Allergy Hives Verified 03/02/19 09:22 ethinyl estradiol Allergy Congestion Verified 03/02/19 09:22 [From Seasonale ()] gabapentin [From Neurontin] Allergy Hives Verified 03/02/19 09:22 levonorgestrel Allergy Congestion Verified 03/02/19 09:22 [From Seasonale ()] Penicillins Allergy Unknown Verified 03/02/19 09:22 Reaction Details TIDE LAUNDRY DETERGANT Allergy Hives Uncoded 02/04/19 13:06 PMH/Surg Hx/FS Hx/Imm Hx Previously Healthy: Yes Endocrine/Hematology History: Denies: Hx Diabetes, Hx Sickle Cell Disease Cardiovascular History: Denies: Hx Hypertension, Hx Pacemaker/ICD Respiratory History: Denies: Hx Asthma History: Denies: Hx Renal Disease Musculoskeletal History: Reports: Other Musculoskeletal History - sciatica Sensory History: Reports: Hx Contacts or Glasses Denies: Hx Legally Blind, Hx Deafness, Hx Hearing Aid Opthamlomology History: Reports: Hx Contacts or Glasses Denies: Hx Legally Blind Neurological History: Reports: Other Neuro Impairments/Disorders - conversion dissorder Psychiatric History: Reports: Hx Anxiety, Hx Post Traumatic Stress Disorder, Hx Bipolar Disorder, Other Psychiatric Issues/Disorders - borderline personality disorder Denies: Hx Panic Disorder - Surgical History Surgery Procedure, Year, and Place: cholecystectomy. GASTRIC BYPASS. C SECTION X2. PARTIAL HYSTERECTOMY. EAR TUBES - Immunization History Immunizations Up to Date: Yes Infectious Disease History: No Infectious Disease History: Denies: Traveled Outside the [place] in Last 30 Days - Family History Known Family History: Positive: Diabetes - Social History Alcohol Use: None Hx Substance Use: No Substance Use Type: Reports: None Hx Tobacco Use: No Smoking Status (MU): Never Smoked Tobacco Review of Systems Positive: Fever Positive: Arthralgia, Myalgia All Other Systems Reviewed And Are Negative: Yes Physical Exam - Summary Physical Exam Summary: Constitutional: Well-developed, Well-nourished, Alert. (-) Distressed Skin: Warm, Dry. Midline surgical scar over the L spine that seems to be well- healed and intact. HENT: Normocephalic; Atraumatic Eyes: Conjunctiva normal Neck: Musculoskeletal ROM normal neck. (-) JVD, (-) Stridor, (-) Tracheal deviation Cardio: Rhythm regular, rate normal, Heart sounds normal; Intact distal pulses; The pedal pulses are 2+ and symmetric. Radial pulses are 2+ and symmetric. Pulmonary/Chest wall: Effort normal. (-) Respiratory distress, (-) Wheezes, (-) Rales Abd: Soft, (-) tenderness, (-) Distension, (-) Guarding, (-) Rebound Musculoskeletal: (-) Edema, no calf tenderness, good pedal pulses bilaterally. Neuro: Alert, Oriented x3 Psych: Mood and affect Normal Triage Information Reviewed: Yes Vital Signs On Initial Exam: Initial Vitals Temp Pulse Resp BP Pulse Ox 98.3 F 71 18 130/77 97 04/09/19 18:36 04/09/19 18:36 04/09/19 18:36 04/09/19 18:36 04/09/19 18:36 Vital Signs Reviewed: Yes Diagnostics - Vital Signs Vital Signs Temp Pulse Resp BP Pulse Ox 04/09/19 21:00 72 99 04/09/19 20:58 69 99 08/19/19 18:36 98.3 F 71 18 130/77 97 - Laboratory Lab Statement: Any lab studies that have been ordered have been reviewed, and results considered in the medical decision making process. Re-Evaluation - Re-Evaluation 1st re-eval Re-Evaluation Time: 22:11 Change: Improved Comment: Per GOPI Cantu, the pt's pain has improved. Lower Extremity Course/Dx - Course Course Of Treatment: Pt is a 44 y/o F presenting to the ED with a chief complaint of pain. She states that about 3 weeks ago, she noticed some pain in her bilateral feet, which slowly progressed throughout her body. As of today, she has been experiencing episodes of sharp, shooting pain throughout her entire body that last for a couple of minutes at a time. She reports myalgia, arthralgia, and subjective fever. The pt's physical exam is nml, aside from a midline surgical scar over the L-spine that is well-healed. The pt's pain has improved as per GOPI Cantu, at 2211. - Diagnoses Provider Diagnoses: Myalgia, Peripheral neuropathy Discharge - Sign-Out/Discharge Documenting (check all that apply): Patient Departure Patient Received Moderate/Deep Sedation with Procedure: No - Discharge Plan Condition: Stable Disposition: HOME Patient Education Materials: Musculoskeletal Pain (ED) Referrals: [facility] [Outside] Additional Instructions: Please follow up with your primary care provider within the next 2-3 days. Return to the emergency department with any new or worsening symptoms. - Billing Disposition and Condition Condition: STABLE Disposition: Home - Attestation Statements Document Initiated by Scribe: Yes Documenting Scribe: Deborah Damon Provider For Whom Magaly is Documenting (Include Credential): Abel Frost MD. Scribe Attestation: Deborah Wheeler, marcelinoed for Abel Frost MD. on 04/10/19 at 0505. Scribe Documentation Reviewed: Yes Provider Attestation: The documentation as recorded by the scribe, Deborah Damon accurately reflects the service I personally performed and the decisions made by me, Abel Frost MD. Status of Scribe Document: Viewed
[2019-04-09 22:28] VITALS: BP 133/86
== END 2019-04-09 22:26 | disposition home or self-care (01) ==
LOC: ED 18:36
DX: M79.10 Myalgia, unspecified site (principal); G62.9 Polyneuropathy, unspecified; Z88.0 Allergy status to penicillin; Z88.8 Allergy status to other drugs, medicaments and biological substances
CPT/HCPCS: 96372; 99282; A9270-GY; J1885

== ENCOUNTER 2019-10-09 18:40 | Emergency (ER) | payer OTHER ==
--- OUTSIDE RECORDS SUMMARY | 2019-10-09 18:51 | XMS REPORT | Continuity of Care Document ---
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 Onset: 2018 status migrainosus Other speech disturbances Cheotennille Masters, N.P. Onset: 11/10/2018 Headache associated with sexual activity Cheo Masters, N.P. Onset: 2018 Fibromyalgia Errol Underwood M.D. Onset: 06/21/2019 Cervico-occipital neuralgia Errol Underwood M.D. Onset: 06/21/2019 Myalgia, unspecified site Errol Underwood M.D. Onset: 05/31/2019 Chronic pain Errol Underwood M.D. Onset: 05/31/2019 Headache Errol Underwood M.D. Onset: 05/31/2019 Skin sensation disturbance Errol Underwood M.D. Onset: 05/31/2019 Social History Type Date Description Comments Sex Female Tobacco Use Start: Unknown Never Smoked Cigarettes Smoking Status Reviewed: 10/02/19 Never Smoked Cigarettes ETOH Use Denies alcohol use Tobacco Use Start: Unknown Patient has never smoked Exercise Type/Frequency Does not exercise Allergies, Adverse Reactions, Alerts Active Allergies Reaction Severity Comments Date Verapamil rash Moderate 10/17/2018 Soma rash Moderate 10/17/2018 Neurontin rash Moderate 10/17/2018 Medications Active Medications SIG Qnty Indications Ordering Date Provider Furosemide 1 by mouth every 30tabs Pawan Shannon NP 09/21/2019 40mg Tablets day in am Requip take 1 by mouth at 30tabs Pawan Shannon NP 09/19/2019 1mg Tablets bedtime Requip 1 tab in the am po 30tabs Pawan Shannon NP 09/19/2019 0.5mg Tablets Methocarbamol take 1 tablet 60tabs Pawan Shannon NP 09/19/2019 750mg every eight hours Tablets as needed for pain. may take second tablet if first not effective. KP Ferrous Sulfate take one tab by 180tabs D50.9 Vaibhav Stanley, 2019 mouth twice daily 325(65Fe) mg Tablets Duloxetine HCL 1 tab in am by 30caps Pawan Shannon NP 09/01/2019 60mg mouth every day Caps DR Lance Pregabalin 1 cap in the pm 30caps M79.7 Akil S. 08/20/2019 100mg Ajiht Willis Capsules Pregabalin 1 tab in am 30caps M79.7 Akil Betancourt 08/20/2019 150mg Ajith Willis Capsules Topamax 2 tablets in the 150tabs G43.809 Cheo 11/10/2018 25mg Tablets am 3 tablets in pm Mayo Masters Hydroxyzine HCL 100mg in Am 200 mg Unknown 50mg in PM Tablets Stiolto Respimat Inhale 2 Puffs Unknown Into The Lungs 2.5-2.5mcg/Act Daily as needed Aerosol Flucelvax To Be Given By Unknown Quadrivalent Pharmacist Per [id number] Standing Order 0.5ml Ema Trazodone HCL 1 every night at 30tabs Pawan Shannon NP 150mg bedtime Tablets Miralax 17 grams by mouth Unknown Powder every day as needed Pantoprazole Sodium (80 MG total Unknown daily) 1 tab in 40mg Tablets DR the am and 1 tab in the pm Latuda 1 tab at at 30tabs Pawan Shannon NP 120mg Tablets bedtime Hyoscyamine Sulfate take one tab by Unknown mouth as needed 0.125mg Tablets Dispers Albuterol Sulfate HFA one puff every 4 Unknown hours wheezing 108(90Base) mcg/Act Aerosol Albuterol Sulfate 1 application Unknown every 6 hours as (2.5mg/3ML) 0.083% needed Nebulizer History Medications Propranolol HCL Take 1 Tablet 60tabs Pawan Shannon NP 09/01/2019 - 20mg By Mouth Up To 09/09/2019 Tablets Twice Daily Clotrimazole dissolve into 70units Pawan Shannon NP 06/25/2019 - 10mg mouth slowly 5 07/09/2019 Anni times a day x 2 weeks Pregabalin 1 by mouth 60caps Errol Underwood, 06/22/2019 - 25mg twice a day M.D. 06/24/2019 Capsules with the 75 MG Pregabalin, for a total dose of 100 MG twice a day Code C Medrol take as 21units M79.7 Errol Underwood, 06/21/2019 - 4mg TBPK directed M.D. 09/09/2019 Pregabalin Take 1 pill 60caps M79.7 Errol Underwood, 06/21/2019 - 100mg twice a day M.D. 08/20/2019 Capsules Cefuroxime Axetil one tablet 20tabs J45.901 Pawan Shannon NP 06/20/2019 - twice daily for 06/30/2019 250mg Tablets 10 days. Promethazine-DM 5ml every 4-6 118ml [email or web address] Pawan Shannon NP 06/20/2019 - hours as needed 06/21/2019 6.25-15mg/5ML Syrup for cough Flovent HFA 2 puffs twice 12gm J45.901 Pawan Shannon NP 06/20/2019 - daily, rinse 09/09/2019 110mcg/Act Aerosol mouth after use. Pregabalin one by mouth 60caps M79.7 Pawan Shannon NP 06/01/2019 - 75mg twice daily 06/21/2019 Capsules Immunizations Description No Information Available Vital Signs Date Vital Result Comment 10/02/2019 9:37am Height 65 inches 5'5" Weight 262.00 lb Heart Rate 88 /min BP Systolic 118 mmHg BP Diastolic 78 mmHg O2 % BldC Oximetry 99 % BMI (Body Mass Index) 43.6 kg/m2 Neck Circumference in inches 14 09/19/2019 4:22pm Height 65 inches 5'5" Weight 265.12 lb Heart Rate 76 /min BP Systolic 126 mmHg BP Diastolic 76 mmHg Body Temperature 97.9 F O2 % BldC Oximetry 96 % BMI (Body Mass Index) 44.1 kg/m2 Results Test Acquired Date Facility Test Result H/L Range Note Urinalysis Profile 10/01/2019 [facility] Urine Color Yellow [address] [place] [address] [phone] Urine Appearance Clear Urine Specific [place] 1.012 Normal 1.010-1.030 Urine pH 6.0 Normal 5-9 Urine Urobilinogen Negative Negative Urine Ketones Negative Negative Urine Protein Negative Negative Urine Leukocytes Negative Negative Urine Blood Negative Negative Urine Nitrite Negative Negative Urine Bilirubin Negative Negative Urine Glucose Negative Negative Creatinine Clearance 09/24/2019 [facility] Urine Collection 24 hr [address] [place] [address] [phone] Urine Total Volume 1600 mL Creatinine, Serum 1.14 mg/dL High 0.51-0.95 Urine Creatinine Concentration 85.00 mg/dL Creatinine Clearance 83 mL/min Low 88-128 Total Protein 24HR 09/24/2019 [facility] Urine Collection Time 24 hr Urine [address] [place] [address] [phone] Urine Total Volume 1600 mL Urine TP Concentration 7 mg/dL Urine Total Protein/24HR 112 mg/24Hr Normal 0-165 Creatinine 09/24/2019 [facility] Creatinine 1.13 mg/dL High 0.51-0.95 [place] [address] [phone] Egfr Non- 51.8 >60 Egfr 62.7 >60 1 Comp Metabolic 09/15/2019 [facility] Sodium 140 mmol/L Normal 135-145 [place] [address] [phone] Potassium 4.2 mmol/L Normal 3.5-5.0 Chloride 108 mmol/L Normal 101-111 Co2 Carbon Dioxide 23 mmol/L Normal 22-32 Anion Gap 9 mmol/L Normal 2-11 Glucose 92 mg/dL Normal 70-100 Blood Urea Nitrogen 19 mg/dL Normal 6-24 Creatinine 1.20 mg/dL High 0.51-0.95 BUN/Creatinine Ratio 15.8 Normal 8-20 Calcium 9.0 mg/dL Normal 8.6-10.3 Total Protein 6.3 g/dL Low 6.4-8.9 Albumin 4.1 g/dL Normal 3.2-5.2 Globulin 2.2 g/dL Normal 2-4 Albumin/Globulin Ratio 1.9 Normal 1-3 Total Bilirubin 0.30 mg/dL Normal 0.2-1.0 Alkaline Phosphatase 62 U/L Normal 34-104 Alt 20 U/L Normal 7-52 Ast 23 U/L Normal 13-39 Egfr Non- 48.4 >60 Egfr 58.5 >60 2 Laboratory test 09/15/2019 [facility] Total Protein < 4 mg/dL finding [address] [place] [address] [phone] Creatinine Random Urine 24.41 mg/dL Urine Microalbumin 09/15/2019 [facility] Ur Microalbumin < 15.[address] (mg/L) mg/[place] [address] [phone] Urine Creatinine 24.41 mg/dL Urine Microalbumin/Creatinine TNP <31 3 Urine Protein Elctrophoresis 09/15/2019 [facility] Albumin 100 % (RDM) [address] [place] [address] [phone] Impression See Comment 4 Total Protein(Pep) Urine <4 mg/dL 5 Urinalysis Profile 09/15/2019 [facility] Urine Color Straw [address] [place] [address] [phone] Urine Appearance Cloudy Urine Specific [place] 1.006 Low 1.010-1.030 Urine pH 7.0 Normal 5-9 Urine Urobilinogen Negative Negative Urine Ketones Negative Negative Urine Protein Negative Negative Urine Leukocytes Negative Negative Urine Blood Negative Negative Urine Nitrite Negative Negative Urine Bilirubin Negative Negative Urine Glucose Negative Negative Protein 09/15/2019 [facility] Total 6.4 g/dL 6.3 - Electrophoresis [address] Protein(Pep) 7.9 [place] [address] [phone] Albumin 3.3 g/dL Abnormal 3.4-4.7 Alpha-1 Globulin 0.2 g/dL 0.1-0.3 Alpha-2 Globulin 1.0 g/dL 0.6-1.0 Beta Globulin 1.0 g/dL 0.7-1.2 Gamma Globulin 1.0 g/dL 0.6-1.6 Albumin/Globulin Ratio 1.08 Impression See Comment 6 Laboratory test 09/15/2019 [facility] Vitamin D 30.6 ng/mL Normal 20-[address] [facility] Total 25(Oh) [place], [place] [id number] [phone] Vitamin B12 And 09/15/2019 [facility] Vitamin B12 346 pg/mL Normal 180-914 8 Folate Serum [address] [place] [address] [phone] Folic Acid (Folate) 19.05 ng/mL >3.99 Iron & Iron Binding 09/15/2019 [facility] Iron 47 g/dL Low 50-212 Capacity [address] [place] [address] [phone] Unsaturated Iron Binding < 465 g/dL Total Iron Binding Capacity 480 g/dL High 250-450 Transferrin 343 mg/dL Normal 203-362 % Iron Saturation 10 % Low 15-55 Laboratory test 09/15/2019 [facility] Ferritin 3.8 ng/mL Low 11-307 finding [address] [place], [place] [address] [phone] CBC Auto Diff 09/15/2019 [facility] White Blood 3.7 Normal 3.5 -10.[address] [facility] Count 10^3/uL [place], [place] [address] [phone] Red Blood Count 4.93 10^6/uL High 3.70-4.87 Hemoglobin 12.3 g/dL Normal 12.0-16.0 Hematocrit 39 % Normal 35-47 Mean Corpuscular Volume 78 fL Low 80-97 Mean Corpuscular Hemoglobin 25 pg Low 27-31 Mean Corpuscular HGB Conc 32 g/dL Normal 31-36 Red Cell Distribution Width 15 % Normal 10-15 Platelet Count 208 10^3/uL Normal 150-450 Mean Platelet Volume 9.3 fL Normal 7.4-10.4 Abs Neutrophils 2.0 10^3/uL Normal 1.5-7.7 Abs Lymphocytes 1.3 10^3/uL Normal 1.0-4.8 Abs Monocytes 0.3 10^3/uL Normal 0-0.8 Abs Eosinophils 0.1 10^3/uL Normal 0-0.6 Abs Basophils 0.0 10^3/uL Normal 0-0.2 Abs Nucleated RBC 0.0 10^3/uL Granulocyte % 52.9 % Lymphocyte % 35.4 % Monocyte % 8.5 % Eosinophil % 2.4 % Basophil % 0.8 % Nucleated Red Blood Cells % 0.0 Laboratory 09/15/2019 [facility] Free T4 (Free 0.85 Normal 0.61-1.12 test finding Thyroxine) ng/[place] [address] [phone] TSH (Thyroid Stim Horm) 1.11 mcIU/mL Normal 0.34-5.60 Cortisol 6.57 g/dL 9 Ceruloplasmin 28.6 mg/dL 10 Myasthenia 08/21/2019 [facility] MG Adult See Comment 11 Gravis (), [place] [address] [phone] Acetylcholine Receptor Binding 0.00 nmol/L <=0.02 12 Acetylcholine Recept Mod Ab 0 % 13 Anti-Striated Muscle Antibody Negative titer <1:120 14 Neutrophil Cytoplasmic 04/27/2019 [facility] C-[place] [address] [phone] P-Anca Negative Negative 15 Comp Metabolic 04/27/2019 [facility] Sodium 139 mmol/L Normal 135-145 [place] [address] [phone] Potassium 4.3 mmol/L Normal 3.5-5.0 Chloride 106 mmol/L Normal 101-111 Co2 Carbon Dioxide 28 mmol/L Normal 22-32 Anion Gap 5 mmol/L Normal 2-11 Glucose 98 mg/dL Normal 70-100 Blood Urea Nitrogen 18 mg/dL Normal 6-24 Creatinine 1.17 mg/dL High 0.51-0.95 BUN/Creatinine Ratio 15.4 Normal 8-20 Calcium 9.2 mg/dL Normal 8.6-10.3 Total Protein 6.5 g/dL Normal 6.4-8.9 Albumin 4.2 g/dL Normal 3.2-5.2 Globulin 2.3 g/dL Normal 2-4 Albumin/Globulin Ratio 1.8 Normal 1-3 Total Bilirubin 0.30 mg/dL Normal 0.2-1.0 Alkaline Phosphatase 58 U/L Normal 34-104 Alt 35 U/L Normal 7-52 Ast 25 U/L Normal 13-39 Egfr Non- 49.8 >60 Egfr 60.3 >60 16 Laboratory test 04/27/2019 [facility] C Reactive < 1.00 Normal <8.01 [address] Protein mg/[place] [address] [phone] Erythrocyte Sed Rate 0 mm/Hr Normal 0-19 18 Anti Double Stranded Dna AB <12.3 IU/mL 19 Vitamin B12 04/27/2019 [facility] Vitamin B12 406 pg/mL Normal 180-914 [address] [place] [address] [phone] Folic Acid (Folate) > 20.00 ng/mL >3.99 21 Protein 04/27/2019 [facility] Total 6.4 g/dL 6.3 - Electrophoresis [address] Protein(Pep) 7.9 [place] [address] [phone] Albumin 3.6 g/dL 3.4-4.7 Alpha-1 Globulin 0.2 g/dL 0.1-0.3 Alpha-2 Globulin 0.9 g/dL 0.6-1.0 Beta Globulin 0.9 g/dL 0.7-1.2 Gamma Globulin 0.8 g/dL 0.6-1.6 Albumin/Globulin Ratio 1.28 Impression See Comment 22 Ssa/SSB Abs Igg 04/27/2019 [facility] SS-A/Ro Antibody <0.2 U [address] [place] [address] [phone] SS-B/La Antibody <0.2 U 24 Laboratory test 04/27/2019 [facility] Rheumatoid < 10 Normal < 15 [address] Factor IU/[place] [address] [phone] Laboratory test 04/27/2019 [facility] Anti Nuclear 0.2 U [address] [place] [address] [phone] CBC Auto Diff 04/27/2019 [facility] White Blood 4.3 Normal 3.5 -10. [address] Count 10^3/uL 8 [place] [address] [phone] Red Blood Count 4.66 10^6/uL Normal 3.70-4.87 Hemoglobin 12.5 g/dL Normal 12.0-16.0 Hematocrit 38 % Normal 35-47 Mean Corpuscular Volume 82 fL Normal 80-97 Mean Corpuscular Hemoglobin 27 pg Normal 27-31 Mean Corpuscular HGB Conc 33 g/dL Normal 31-36 Red Cell Distribution Width 16 % High 10-15 Platelet Count 229 10^3/uL Normal 150-450 Mean Platelet Volume 8.1 fL Normal 7.4-10.4 Abs Neutrophils 2.5 10^3/uL Normal 1.5-7.7 Abs Lymphocytes 1.3 10^3/uL Normal 1.0-4.8 Abs Monocytes 0.3 10^3/uL Normal 0-0.8 Abs Eosinophils 0.1 10^3/uL Normal 0-0.6 Abs Basophils 0.0 10^3/uL Normal 0-0.2 Abs Nucleated RBC 0.0 10^3/uL Granulocyte % 58.5 % Lymphocyte % 30.5 % Monocyte % 8.0 % Eosinophil % 2.4 % Basophil % 0.6 % Nucleated Red Blood Cells % 0.0 1 Because ethnic data is not always readily available, this report includes an eGFR for both -Americans and non- Americans. The National Kidney Disease Education Program (NKDEP) does not endorse the use of the MDRD equation for patients that are not between the ages of 18 and 70, are , have extremes of body size, muscle mass, or nutritional status, or are non- or non-. According to the National Kidney Foundation, irrespective of diagnosis, the stage of the disease is based on the level of kidney function: Stage Description GFR(mL/min/1.73 m(2)) 1 Kidney damage with normal or decreased GFR 90 2 Kidney damage with mild decrease in GFR 60-89 3 Moderate decrease in GFR 30-59 4 Severe decrease in GFR 15-29 5 Kidney failure <15 (or dialysis) 2 Because ethnic data is not always readily available, this report includes an eGFR for both -Americans and non- Americans. The National Kidney Disease Education Program (NKDEP) does not endorse the use of the MDRD equation for patients that are not between the ages of 18 and 70, are , have extremes of body size, muscle mass, or nutritional status, or are non- or non-. According to the National Kidney Foundation, irrespective of diagnosis, the stage of the disease is based on the level of kidney function: Stage Description GFR(mL/min/1.73 m(2)) 1 Kidney damage with normal or decreased GFR 90 2 Kidney damage with mild decrease in GFR 60-89 3 Moderate decrease in GFR 30-59 4 Severe decrease in GFR 15-29 5 Kidney failure <15 (or dialysis) 3 Unable to calculate due to low microalbumin 4 RESULT: Albumin is the only protein detected. 5 ADDITIONAL INFORMATION On 02/15/2017 the total protein assay method changed resulting in approximately a 15% increase in protein values. Test Performed by: [place] [address] [employer]: John Wynn M.D. Ph.D.; CLIA# [id number] Test Performed by: [place] [address] [employer]: John Wynn M.D. Ph.D.; CLIA# [id number] 6 RESULT: No apparent monoclonal protein on serum electrophoresis. Test Performed by: [place] [address] [employer]: John Wynn M.D. Ph.D.; CLIA# [id number] 7 Total 25-Hydroxyvitamin D2 and D3 (25-OH-VitD) <10 ng/mL (severe deficiency) 10-19 ng/mL (mild to moderate deficiency) 20-50 ng/mL (optimum levels) 51-80 ng/mL (increased risk of hypercalciuria) >80 ng/mL (toxicity possible) 8 Normal Range 180 to 914 Indeterminate Range 145 to 180 Deficient Range <145 9 AM 8.7-22.4 PM <10 10 REFERENCE VALUE 20.0 - 51.0 Test Performed by: [place] [address] [employer]: John Wynn M.D. Ph.D.; CLIA# [id number] 11 A negative result does not exclude the diagnosis of autoimmune myasthenia gravis. 12 ADDITIONAL INFORMATION This test was developed and its performance characteristics determined by [facility] in a manner consistent with CLIA requirements. This test has not been cleared or approved by the U.S. Food and Drug Administration. 13 REFERENCE VALUE 0-20% (reported as _% loss of AChR) ADDITIONAL INFORMATION This test was developed and its performance characteristics determined by [facility] in a manner consistent with CLIA requirements. This test has not been cleared or approved by the U.S. Food and Drug Administration. 14 ADDITIONAL INFORMATION This test was developed and its performance characteristics determined by [facility] in a manner consistent with CLIA requirements. This test has not been cleared or approved by the U.S. Food and Drug Administration. Test Performed by: [facility] - [address] [address] [employer]: John Wynn M.D. Ph.D.; CLIA# [id number] 15 Negative for cANCA and pANCA patterns by immunofluorescence. ADDITIONAL INFORMATION This test was developed and its performance characteristics determined by [facility] in a manner consistent with CLIA requirements. This test has not been cleared or approved by the U.S. Food and Drug Administration. Test Performed by: [facility] [place] [address] [employer]: John Wynn M.D. Ph.D.; CLIA# [id number] 16 Because ethnic data is not always readily available, this report includes an eGFR for both -Americans and non- Americans. The National Kidney Disease Education Program (NKDEP) does not endorse the use of the MDRD equation for patients that are not between the ages of 18 and 70, are , have extremes of body size, muscle mass, or nutritional status, or are non- or non-. According to the National Kidney Foundation, irrespective of diagnosis, the stage of the disease is based on the level of kidney function: Stage Description GFR(mL/min/1.73 m(2)) 1 Kidney damage with normal or decreased GFR 90 2 Kidney damage with mild decrease in GFR 60-89 3 Moderate decrease in GFR 30-59 4 Severe decrease in GFR 15-29 5 Kidney failure <15 (or dialysis) 17 Copy Result to: Vaibhav BABIN ([id number]) 18 Copy Result to: Vaibhav BABIN ([id number]) 19 REFERENCE VALUE <30.0 (Negative) Test Performed by: [place] [address] [employer]: John Wynn M.D. Ph.D.; CLIA# [id number] 20 Normal Range 180 to 914 Indeterminate Range 145 to 180 Deficient Range <145 21 Copy Result to: Vaibhav BABIN ([id number]) 22 RESULT: No apparent monoclonal protein on serum electrophoresis. Test Performed by: [place] [address] [employer]: John Wynn M.D. Ph.D.; CLIA# [id number] 23 REFERENCE VALUE <1.0 (Negative) 24 REFERENCE VALUE <1.0 (Negative) Test Performed by: [facility] [place] [address] [employer]: John Wynn M.D. Ph.D.; CLIA# [id number] 25 Copy Result to: Vaibhav BABIN ([id number]) 26 REFERENCE VALUE <=1.0 (Negative) Test Performed by: [facility] [place] [address] [employer]: John Wynn M.D. Ph.D.; CLIA# [id number] Procedures Date Code Description Status 05/08/2019 12939 Nerve Conduction 13+ Studies Completed 05/08/2019 10448 Needle Electromyography Complete, Five Or More Muscles Completed Studied Medical Devices Description No Information Available Encounters Type Date Location Provider Dx Diagnosis Office Visit 09/19/2019 [facility] Internal Pawan Shannon NP R94.4 Abnormal results of 4:20p Medicine - [facility] kidney function studies M54.2 Cervicalgia Office Visit 09/10/2019 4:00p Rheumatology Vaibhav R53.83 Other fatigue Services Of [facility] Fibromyalgia G43.009 Migraine w/o aura, not intractable, w/o status migrainosus M54.2 Cervicalgia N18.2 Chronic kidney disease, stage 2 (mild) Office Visit 08/20/2019 2:00p [place] [facility] Zurdo Nichols79.7 Fibromyalgia Services Of [facility] N.PAnne R20.2 Paresthesia of skin M54.81 Occipital neuralgia M54.2 Cervicalgia R53.83 Other fatigue Office Visit 06/21/2019 3:30p [place] Zurdo Johnson79.7 Fibromyalgia Services Of [facility] Ajith R20.2 Paresthesia of skin M54.81 Occipital neuralgia Office Visit 06/20/2019 1:40p [facility] Internal Pawan Shannon NP M79.7 [facility] J45.901 Unspecified asthma with (acute) exacerbation R05 Cough Office Visit 06/18/2019 3:00p Rheumatology Vaibahv Stanley M79.7 Fibromyalgia Services Of [facility] MD Colesob R53.83 Other fatigue G47.30 Sleep apnea, unspecified Office Visit 05/31/2019 3:00p [facility] Internal Pawan Shannon NP G89.29 Other [facility] pain R53.83 Other fatigue Office Visit 05/31/2019 Analy Norton Kj, R20.2 Paresthesia of 12:00p Neurologic M.D. skin Services Of [facility] R51 Headache G89.29 Other chronic pain M79.10 Myalgia, unspecified site Office Visit 04/27/2019 9:00a [place] [facility] Cheo R20.2 Paresthesia of Services Of [facility] Guerrero, N.P. skin R51 Headache H53.2 Diplopia Assessments Date Code Description Provider 10/02/2019 R06.83 Snoring Alida León MD 10/02/2019 R53.83 Other fatigue Alida León MD 10/02/2019 G47.33 Obstructive sleep apnea (adult) (pediatric) Alida León MD 09/19/2019 R94.4 Abnormal results of kidney function studies Pawan Shannon NP 09/19/2019 M54.2 Cervicalgia Pawan Shannon NP 09/10/2019 R53.83 Other fatigue Vaibhav Stanley MD 09/10/2019 M79.7 Fibromyalgia Vaibhav Stanley MD 09/10/2019 G43.009 Migraine without aura, not intractable, Vaibhav Stanley MD without status migrainosus 09/10/2019 M54.2 Cervicalgia Vaibhav Stanley MD 09/10/2019 N18.2 Chronic kidney disease, stage 2 (mild) Vaibhav Stanley MD 08/20/2019 M79.7 Fibromyalgia Cheo Masters, N.P. 08/20/2019 R20.2 Paresthesia of skin Cheo Masters, N.P. 08/20/2019 M54.81 Occipital neuralgia Cheo Masters, N.P. 08/20/2019 M54.2 Cervicalgia Cheo Masters, N.P. 08/20/2019 R53.83 Other fatigue Cheo Masters, N.P. 06/21/2019 M79.7 Fibromyalgia Errol Underwood M.D. 06/21/2019 R20.2 Paresthesia of skin Errol Underwood M.D. 06/21/2019 M54.81 Occipital neuralgia Errol Underwood M.D. 06/20/2019 M79.7 Fibromyalgia Pawanjoanna Shannon, RILEY 06/20/2019 J45.901 Unspecified asthma with (acute) Pawan Mirtha, [employer] exacerbation 06/20/2019 R05 Cough Pawan Mirtha, [employer] 06/18/2019 M79.7 Fibromyalgia Vaibhav Stanley MD 06/18/2019 R53.83 Other fatigue Vaibhav Stanley MD 06/18/2019 G47.30 Sleep apnea, unspecified Vaibhav Stanley MD 05/31/2019 G89.29 Other chronic pain Pawan Shannon NP 05/31/2019 R20.2 Paresthesia of skin Errol Underwood M.D. 05/31/2019 R53.83 Other fatigue Pawan Shannon NP 05/31/2019 R51 Headache Errol Underwood M.D. 05/31/2019 G89.29 Other chronic pain Errol Underwood M.D. 05/31/2019 M79.10 Myalgia, unspecified site Errol Underwood M.D. 05/08/2019 R20.2 Paresthesia of skin Abel Nair MD 04/27/2019 R20.2 Paresthesia of skin Cheo Masters, N.P. 04/27/2019 R51 Headache Cheo Masters, N.P. 04/27/2019 H53.2 Diplopia Cheo Masters, N.P. Plan of Treatment Future Appointment(s):11/07/2019 3:00 pm - Ayla Arias NP at Pulmonology And Sleep Services Of [facility]10/03/2019 4:00 pm - Pawan Shannon NP at [facility] Internal Medicine - [facility]10/19/2019 1:00 pm - Varun George MD [facility] [facility]/11/2019 4:00 pm - Vaibhav Stanley MD at [facility]12/31/2019 4:00 pm - Errol Underwood M.D. at [facility]10/02/2019 - Alida Romelia, MDR06.83 SnoringNew Orders:Home Sleep Testing, Ordered: 10/02/19Follow up:3 egezqF01.83 Other aiedzhyE80.33 Obstructive sleep apnea (adult) (pediatric) Functional Status Description No Information Available Mental Status Description No Information Available Referrals Refer to Reason for Referral Status Appt Date Varun George MD Scheduled 10/19/2019 8 [facility] [place] [id number] [phone] [facility] Sleep Clinic History of sleep apnea. Referral is for new Scheduled 10/04 study as it has been over five years and patient has gained >10% body weight since last sleep study, with ongoing and worsening fatigue. Eval and treat. [address] [place] [address] [phone] Pop Ivey MD Sent [address] [place] [address] [place] [address] [phone] Lolis Bahena MD Pain Management Sent [address] [address] [phone]
--- OUTSIDE RECORDS SUMMARY | 2019-10-09 18:51 | XMS REPORT | Continuity of Care Document ---
:1975 External Reference #:[id number] Author Name Pawan Shannon NP (transmitted by agent of provider Apurva Robbins) Address [address] [facility], [place] [address] Care Team Providers Name Role Phone Francia Gould MD - Internal Medicine Care Team Information Hide Mill Man Problems Active Problems Provider Date Other migraine, not intractable, without Cheo Masters, N.P. Onset: 2018 status migrainosus Other speech disturbances Cheo Masters, N.P. Onset: 11/10/2018 Headache associated with sexual activity Cheo Masters, N.P. Onset: 2018 Fibromyalgia Errol Underwood M.D. Onset: 06/21/2019 Cervico-occipital neuralgia Errol Udnerwood M.D. Onset: 06/21/2019 Myalgia, unspecified site Errol Underwood M.D. Onset: 05/31/2019 Chronic pain Errol Underwood M.D. Onset: 05/31/2019 Headache Errol Underwood M.D. Onset: 05/31/2019 Skin sensation disturbance Errol Underwood M.D. Onset: 05/31/2019 Social History Type Date Description Comments Sex Female Tobacco Use Start: Unknown Never Smoked Cigarettes Smoking Status Reviewed: 10/03/19 Never Smoked Cigarettes ETOH Use Denies alcohol use Tobacco Use Start: Unknown Patient has never smoked Exercise Type/Frequency Does not exercise Allergies, Adverse Reactions, Alerts Active Allergies Reaction Severity Comments Date Verapamil rash Moderate 10/17/2018 Soma rash Moderate 10/17/2018 Neurontin rash Moderate 10/17/2018 Medications Active Medications SIG Qnty Indications Ordering Date Provider Amitriptyline HCL one by mouth in 30tabs M79.7 Pawan Shannon NP 10/03/2019 25mg the evening Tablets Furosemide 1 by mouth every 30tabs Pawan Sahnnon NP 09/21/2019 40mg Tablets day in am Requip take 1 by mouth at 30tabs Pawan Shannon NP 09/19/2019 1mg Tablets bedtime Requip 1 tab in the am po 30tabs Pawan Shannon NP 09/19/2019 0.5mg Tablets Methocarbamol Take 1-2 tabs 180tabs Pawan Shannon NP 09/19/2019 750mg every 8 hours as Tablets needed KP Ferrous Sulfate take one tab by 180tabs D50.9 Vaibhav Stanley, 2019 mouth twice daily MD 325(65Fe) mg Tablets Duloxetine HCL 1 tab in am by 30caps Pawan Shannon NP 09/01/2019 60mg mouth every day Caps DR Lance Pregabalin 1 cap in the pm 30caps M79.7 Akil Betancourt 08/20/2019 100mg Ajith Willis Capsules Pregabalin 1 tab in am [facility] M[facility].7 Akil Betancourt 08/20/2019 150mg Ajith Willis Capsules Topamax 2 tablets in the 150tabs G43.809 Cheo 11/10/2018 25mg Tablets am 3 tablets in pm [facility] Masters Hydroxyzine HCL 100mg in Am 200 mg Unknown 50mg in PM Tablets Stiolto Respimat Inhale 2 Puffs Unknown Into The Lungs 2.5-2.5mcg/Act Daily as needed Aerosol Flucelvax To Be Given By Unknown Quadrivalent Pharmacist Per [phone] Standing Order 0.5ml Ema Trazodone HCL 1 [...] 10 days. Promethazine-DM 5ml every 4-6 118ml J45.901 Pawan Shannon NP 06/20/2019 - hours as needed 06/21/2019 6.25-15mg/5ML Syrup for cough Flovent HFA 2 puffs twice 12gm J45.901 Pawan Shannon NP 06/20/2019 - daily, rinse 09/09/2019 110mcg/Act Aerosol mouth after use. Pregabalin one by mouth 60caps M79.7 Pawan Shannon NP 06/01/2019 - 75mg twice daily 06/21/2019 Capsules Immunizations Description No Information Available Vital Signs Date Vital Result Comment 10/03/2019 4:41pm Height 65 inches 5'5" Weight 264.00 lb Heart Rate 62 /min BP Systolic 124 mmHg BP Diastolic 78 mmHg O2 % BldC Oximetry 99 % BMI (Body Mass Index) 43.9 kg/m2 10/02/2019 9:37am Height 65 inches 5'5" Weight 262.00 lb Heart Rate 88 /min BP Systolic 118 mmHg BP Diastolic 78 mmHg O2 % BldC Oximetry 99 % BMI (Body Mass Index) 43.6 kg/m2 Neck Circumference in inches 14 Results Test Acquired Date Facility Test Result H/L Range Note Urinalysis Profile 10/01/2019 [facility] Urine Color Yellow [address] [place] [address] [phone] Urine Appearance Clear Urine Specific [place] 1.012 Normal 1.010-1.030 Urine pH 6.0 Normal 5-9 Urine Urobilinogen Negative Negative Urine Ketones Negative Negative Urine Protein Negative Negative Urine Leukocytes Negative Negative Urine Blood Negative Negative Urine Nitrite Negative Negative Urine Bilirubin Negative Negative Urine Glucose Negative Negative Creatinine Clearance 09/24/2019 [facility] Urine Collection 24 hr [address] [place] [address] [phone] Urine Total Volume 1600 mL Creatinine, Serum 1.14 mg/dL High 0.51-0.95 Urine Creatinine Concentration 85.00 mg/dL Creatinine Clearance 83 mL/min Low 88-128 Total Protein 24HR 09/24/2019 [facility] Urine Collection Time 24 hr Urine 101 [place] [address] [phone] Urine Total Volume 1600 mL Urine TP Concentration 7 mg/dL Urine Total Protein/24HR 112 mg/24Hr Normal 0-165 Creatinine 09/24/2019 [facility] Creatinine 1.13 mg/dL High 0.51-0.95 [place] [address] [phone] Egfr Non- 51.8 >60 Egfr 62.7 >60 1 Comp Metabolic 09/15/2019 [facility] Sodium 140 mmol/L Normal 135-145 [place] [address] [phone] Potassium 4.2 mmol/L Normal 3.5-5.0 Chloride 108 [...] Egfr 58.5 >60 2 Laboratory test 09/15/2019 [facility] Total Protein < 4 mg/dL finding [address] [place] [address] [phone] Creatinine Random Urine 24.41 mg/dL Urine Microalbumin 09/15/2019 [facility] Ur Microalbumin < 15.[address] (mg/L) mg/[place] [address] [phone] Urine Creatinine 24.41 mg/dL Urine Microalbumin/Creatinine TNP <31 3 Urine Protein Elctrophoresis 09/15/2019 [facility] Albumin 100 % (RDM) [address] [place] [address] [phone] Impression See Comment 4 Total Protein(Pep) Urine <4 mg/dL 5 Urinalysis Profile 09/15/2019 [facility] Urine Color Straw [address] [place] [address] [phone] Urine Appearance Cloudy Urine Specific [place] 1.006 Low 1.010-1.030 Urine pH 7.0 Normal 5-9 Urine Urobilinogen Negative Negative Urine Ketones Negative Negative Urine Protein Negative Negative Urine Leukocytes Negative Negative Urine Blood Negative Negative Urine Nitrite Negative Negative Urine Bilirubin Negative Negative Urine Glucose Negative Negative Protein 09/15/2019 [facility] Total 6.4 g/dL 6.3 - Electrophoresis [address] Protein(Pep) 7.9 [place] [address] [phone] Albumin 3.3 g/dL Abnormal 3.4-4.7 Alpha-1 Globulin 0.2 g/dL 0.1-0.3 Alpha-2 Globulin 1.0 g/dL 0.6-1.0 Beta Globulin 1.0 g/dL 0.7-1.2 Gamma Globulin 1.0 g/dL 0.6-1.6 Albumin/Globulin Ratio 1.08 Impression See Comment 6 Laboratory test 09/15/2019 [facility] Vitamin D 30.6 ng/mL Normal 20-50 7 finding [address] [facility] Total 25(Oh) [place] [address] [phone] Vitamin B12 And 09/15/2019 [facility] Vitamin B12 346 pg/mL Normal 180-914 8 Folate Serum 101 [place] [address] [phone] Folic Acid (Folate) 19.05 ng/mL >3.99 Iron & Iron Binding 09/15/2019 [facility] Iron 47 g/dL Low 50-212 Capacity [address] [place], [place] [id number] [phone] Unsaturated Iron Binding < 465 g/dL Total Iron Binding Capacity 480 g/dL High 250-450 Transferrin 343 mg/dL Normal 203-362 % Iron Saturation 10 % Low 15-55 Laboratory test 09/15/2019 [facility] Ferritin 3.8 ng/mL Low 11-307 finding 101 [place], [place] [id number] [phone] CBC Auto Diff 09/15/2019 [facility] White Blood 3.7 Normal 3.5 -10.8 [address] [facility] Count 10^3/uL [place], [place] [id number] [phone] Red Blood Count 4.93 10^6/uL High 3.70-4.87 [...] Red Blood Cells % 0.0 Laboratory 09/15/2019 [facility] Free T4 (Free 0.85 Normal 0.61-1.12 test finding Thyroxine) ng/[place] [address] [phone] TSH (Thyroid Stim Horm) 1.11 mcIU/mL Normal 0.34-5.60 Cortisol 6.57 g/dL 9 Ceruloplasmin 28.6 mg/dL 10 Myasthenia 08/21/2019 [facility] MG Adult See Comment 11 Gravis (), [place] [address] [phone] Acetylcholine Receptor Binding 0.00 nmol/L <=0.02 12 Acetylcholine Recept Mod Ab 0 % 13 Anti-Striated Muscle Antibody Negative titer <1:120 14 Neutrophil Cytoplasmic 04/27/2019 [facility] C-Anca [place] [address] [phone] P-Anca Negative Negative 15 Comp Metabolic 04/27/2019 [facility] Sodium 139 mmol/L Normal 135-145 [place] [address] [phone] Potassium 4.3 mmol/L Normal 3.5-5.0 Chloride 106 [...] Egfr 60.3 >60 16 Laboratory test 04/27/2019 [facility] C Reactive < 1.00 Normal <8.01 [address] Protein mg/[place] [address] [phone] Erythrocyte Sed Rate 0 mm/Hr Normal 0-19 18 Anti Double Stranded Dna AB <12.3 IU/mL 19 Vitamin B12 04/27/2019 [facility] Vitamin B12 406 pg/mL Normal 180-914 [address] [place] [address] [phone] Folic Acid (Folate) > 20.00 ng/mL >3.99 21 Protein 04/27/2019 [facility] Total 6.4 g/dL 6.3 - Electrophoresis [address] Protein(Pep) 7.9 [place] [address] [phone] Albumin 3.6 g/dL 3.4-4.7 Alpha-1 Globulin 0.2 g/dL 0.1-0.3 Alpha-2 Globulin 0.9 g/dL 0.6-1.0 Beta Globulin 0.9 g/dL 0.7-1.2 Gamma Globulin 0.8 g/dL 0.6-1.6 Albumin/Globulin Ratio 1.28 Impression See Comment 22 Ssa/SSB Abs Igg 04/27/2019 [facility] SS-A/Ro Antibody <0.2 U [address] [place] [address] [phone] SS-B/La Antibody <0.2 U 24 Laboratory test 04/27/2019 [facility] Rheumatoid < 10 Normal < 15 [address] Factor IU/[place] [address] [phone] Laboratory test 04/27/2019 [facility] Anti Nuclear 0.2 U [address] [place] [place] [address] [phone] CBC Auto Diff 04/27/2019 [facility] White Blood 4.3 Normal 3.5 -10. [address] Count 10^3/uL 8 [place] [address] [phone] Red Blood Count 4.66 10^6/uL Normal 3.70-4.87 [...] increase in protein values. Test Performed by: [place] [address] Washroom Cleaner: John Wynn M.D. Ph.D.; CLIA# [id number] Test Performed by: [place] [address] Washroom Cleaner: John Wynn M.D. Ph.D.; CLIA# [id number] 6 RESULT: No apparent monoclonal protein on serum electrophoresis. Test Performed by: [place] [address] Washroom Cleaner: John Wynn M.D. Ph.D.; CLIA# [id number] 7 Total 25-Hydroxyvitamin D2 and D3 (25-OH-VitD) <10 ng/mL (severe deficiency) 10-19 ng/mL (mild to moderate deficiency) 20-50 ng/mL (optimum levels) 51-80 ng/mL (increased risk of hypercalciuria) >80 ng/mL (toxicity possible) 8 Normal Range 180 to 914 Indeterminate Range 145 to 180 Deficient Range <145 9 AM 8.7-22.4 PM <10 10 REFERENCE VALUE 20.0 - 51.0 Test Performed by: [facility] [place] [id number] Washroom Cleaner: John Wynn M.D. Ph.D.; CLIA# [id number] 11 A negative result does not exclude the diagnosis of autoimmune myasthenia gravis. 12 ADDITIONAL INFORMATION This test was developed and its performance characteristics determined by [facility] in a manner consistent with CLIA requirements. This test has not been cleared or approved by the U.S. Food and Drug Administration. 13 REFERENCE VALUE 0-20% (reported as _% loss of AChR) ADDITIONAL INFORMATION This test was developed and its performance characteristics determined by [facility] in a manner consistent with CLIA requirements. This test has not been cleared or approved by the U.S. Food and Drug Administration. 14 ADDITIONAL INFORMATION This test was developed and its performance characteristics determined by [facility] in a manner consistent with CLIA requirements. This test has not been cleared or approved by the U.S. Food and Drug Administration. Test Performed by: [facility] - [address] [address] Washroom Cleaner: John Wynn M.D. Ph.D.; CLIA# [id number] 15 Negative for cANCA and pANCA patterns by immunofluorescence. ADDITIONAL INFORMATION This test was developed and its performance characteristics determined by [facility] in a manner consistent with CLIA requirements. This test has not been cleared or approved by the U.S. Food and Drug Administration. Test Performed by: [place] [address] Washroom Cleaner: John Wynn M.D. Ph.D.; CLIA# [id number] 16 Because ethnic data is not always [...] dialysis) 17 Copy Result to: Vaibhav BABIN ([id number]) 18 Copy Result to: Vaibhav BABIN ([id number]) 19 REFERENCE VALUE <30.0 (Negative) Test Performed by: [place] [address] Washroom Cleaner: John Wynn M.D. Ph.D.; CLIA# [id number] 20 Normal Range 180 to 914 Indeterminate Range 145 to 180 Deficient Range <145 21 Copy Result to: Vaibhav BABIN ([id number]) 22 RESULT: No apparent monoclonal protein on serum electrophoresis. Test Performed by: [place] [address] Washroom Cleaner: John Wynn M.D. Ph.D.; CLIA# [id number] 23 REFERENCE VALUE <1.0 (Negative) 24 REFERENCE VALUE <1.0 (Negative) Test Performed by: [facility] [place] [address] Washroom Cleaner: John Wynn M.D. Ph.D.; CLIA# [id number] 25 Copy Result to: Vaibhav BABIN ([id number]) 26 REFERENCE VALUE <=1.0 (Negative) Test Performed by: [facility] [address] Washroom Cleaner: John Wynn M.D. Ph.D.; CLIA# [id number] Procedures Date Code Description Status 05/08/2019 46256 Nerve Conduction 13+ Studies Completed 05/08/2019 57024 Needle Electromyography Complete, Five Or More Muscles Completed Studied Medical Devices Description No Information Available Encounters Type Date Location Provider Dx Diagnosis Office Visit 10/02/2019 Pulmonology And Sleep Alida León MD R06.83 Snoring 10:00a [facility] R53.83 Other fatigue G47.33 Obstructive sleep apnea (adult) (pediatric) Office Visit 09/19/2019 4:20p [facility] Internal Pawan Shannon NP R94.4 Abnormal results Medicine - Ccmob of kidney function studies M54.2 Cervicalgia Office Visit 09/10/2019 4:00p Rheumatology Vaibhav R53.83 Other fatigue [facility] - MD Jaden Ccmob M79.7 Fibromyalgia G43.009 Migraine w/o aura, not intractable, w/o status migrainosus M54.2 Cervicalgia N18.2 Chronic kidney disease, stage 2 (mild) Office Visit 08/20/2019 2:00p [facility] Cheo Masters M79.7 Fibromyalgia [facility] N.P. R20.2 Paresthesia of skin M54.81 Occipital neuralgia M54.2 Cervicalgia R53.83 Other fatigue Office Visit 06/21/2019 3:30p [facility] Errol Underwood M79.7 Fibromyalgia [facility] Ajith R20.2 Paresthesia of skin M54.81 Occipital neuralgia Office Visit 06/20/2019 1:40p [facility] Internal Pawan Shannon NP M79.7 [facility] J[facility]901 Unspecified asthma with (acute) exacerbation R05 Cough Office Visit 06/18/2019 3:00p Rheumatology Vaibhav Stanley M79.7 Fibromyalgia [facility] MD Colesob R53.83 Other fatigue G47.30 Sleep apnea, unspecified Office Visit 05/31/2019 3:00p [facility] Internal Pawan Shannon NP G89.29 Other chronic Medicine - [facility] pain R53.83 Other fatigue Office Visit 05/31/2019 [facility] Errol Underwood R20.2 Paresthesia of 12:00p Neurologic Zur[place].Sonal skin [facility] R51 Headache G89.29 Other chronic pain M79.10 Myalgia, unspecified site Office Visit 04/27/2019 9:00a [facility] Cheo R20.2 Paresthesia of [facility] Masters, N.P. skin R51 Headache H53.2 Diplopia Assessments Date Code Description Provider 10/03/2019 M79.7 Fibromyalgia Pawan Shannon NP 10/03/2019 R10.9 Unspecified abdominal pain Pawan Shannon NP 10/02/2019 R06.83 Snoring Alida León MD 10/02/2019 [...] neuralgia Cheo Masters, N.P. 08/20/2019 M54.2 Cervicalgia Cheotennille Masters, N.P. 08/20/2019 R53.83 Other fatigue Cheo Masters, N.P. 06/21/2019 M79.7 Fibromyalgia Errol Underwood M.D. 06/21/2019 R20.2 Paresthesia of skin Errol Underwood M.D. 06/21/2019 M54.81 Occipital neuralgia Errol Underwood M.D. 06/20/2019 M79.7 Fibromyalgia Pawan Shannon, RILEY 06/20/2019 J45.901 Unspecified asthma with (acute) Pawan Mirtha, CAR WHACKER exacerbation 06/20/2019 R05 Cough Pawan Mirtha, RILEY 06/18/2019 M79.7 Fibromyalgia Vaibhav Stanley MD 06/18/2019 [...] NP at Pulmonology And Sleep [facility]10/19/2019 1:00 pm - Varun George MD at Neurosurgery [facility]12/11/2019 4:00 pm - Vaibhav Stanley MD at Rheumatology [facility] - [facility]12/31/2019 4:00 pm - Errol Underwood M.D. at [facility]10/03/2019 - Pawan Shannon NPM79.7 FibromyalgiaNew Medication:Amitriptyline HCL 25 mg - one by mouth in the eveningComments:Try adding the amitriptyline at night.R10.9 Unspecified abdominal painNew Labs:Amylase, Ordered: 10/03/19CBC Auto Diff, Ordered: Comp Metabolic Panel, Ordered: 10/03/19Lipase, Ordered: 10/03/19New Xrays:CT Abd/Pel W, Ordered: 10/03/19Comments:Have the bloodwork and CT scan done. I will notify you of the results. Functional Status Description No Information Available Mental Status Description No Information Available Referrals Refer to Reason for Referral Status Appt Date Varun George MD Scheduled 10/19/2019 [address] [place] [address] [phone] [facility] History of sleep apnea. Referral is for new Scheduled 10/04 study as it has been over five years and patient has gained >10% body weight since last sleep study, with ongoing and worsening fatigue. Eval and treat. [address] [place] [address] [phone] Pop Ivey MD Sent [address] [place] [address] [phone] Lolis Bahena MD Pain Management Sent [address] [address] [phone]
--- OUTSIDE RECORDS SUMMARY | 2019-10-09 18:51 | XMS REPORT | Continuity of Care Document ---
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 Onset: 2018 status migrainosus Other speech disturbances Cheo Masters, N.P. Onset: 11/10/2018 Headache associated with sexual activity Cheo Masters, N.P. Onset: 2018 Fibromyalgia Errol Underwood M.D. Onset: 06/21/2019 Cervico-occipital neuralgia Errol Underwood M.D. Onset: 06/21/2019 Myalgia, unspecified site Errol Underwood M.D. Onset: 05/31/2019 Chronic pain Errol Underwood M.D. Onset: 05/31/2019 Headache Errol Underwood M.D. Onset: 05/31/2019 Skin sensation disturbance rErol Underwood M.D. Onset: 05/31/2019 Social History Type [...] [facility] Caps[facility] M79.7 Akil Betancourt 08/20/2019 150mg Ajith Willis Capsules Topamax 2 tablets in the 150tabs G43.809 Cheo 11/10/2018 25mg Tablets am 3 tablets in pm [facility] Hydroxyzine HCL 100mg in Am 200 mg Unknown 50mg in PM Tablets Stiolto Respimat Inhale 2 Puffs Unknown Into The Lungs 2.5-2.5mcg/Act Daily as needed Aerosol Flucelvax To Be Given By Unknown Quadrivalent Pharmacist Per [phone] Standing Order 0.5ml Ema Trazodone HCL 1 [...] 08/20/2019 Capsules Cefuroxime Axetil one tablet 20tabs [id number] Pawan Shannon NP 06/20/2019 - twice daily [...] Result H/L Range Note Urinalysis Profile 10/01/2019 [facility] Urine Color Yellow [address] [place] [address] [phone] Urine Appearance Clear Urine Specific [place] 1.012 Normal 1.010-1.030 Urine pH 6.0 Normal 5-9 Urine Urobilinogen Negative Negative Urine Ketones Negative Negative Urine Protein Negative Negative Urine Leukocytes Negative Negative Urine Blood Negative Negative Urine Nitrite Negative Negative Urine Bilirubin Negative Negative Urine Glucose Negative Negative Creatinine Clearance 09/24/2019 [facility] Urine Collection 24 hr [address] [place] [address] [phone] Urine Total Volume 1600 mL Creatinine, Serum 1.14 mg/dL High 0.51-0.95 Urine Creatinine Concentration 85.00 mg/dL Creatinine Clearance 83 mL/min Low 88-128 Total Protein 24HR 09/24/2019 [facility] Urine Collection Time 24 hr Urine [address] [place] [address] [phone] Urine Total Volume 1600 mL Urine TP Concentration 7 mg/dL Urine Total Protein/24HR 112 mg/24Hr Normal 0-165 Creatinine 09/24/2019 [facility] Creatinine 1.13 mg/dL High 0.51-0.95 [place] [address] [phone] Egfr Non- 51.8 >60 Egfr 62.7 >60 1 Comp Metabolic 09/15/2019 [facility] Sodium 140 mmol/L Normal 135-145 [place] [address] [phone] Potassium 4.2 mmol/L Normal 3.5-5.0 Chloride 108 [...] Egfr 58.5 >60 2 Laboratory test 09/15/2019 [facility] Total Protein < 4 mg/dL finding [address] [place] [address] [phone] Creatinine Random Urine 24.41 mg/dL Urine Microalbumin 09/15/2019 [facility] Ur Microalbumin < 15.[address] (mg/L) mg/[place] [address] [phone] Urine Creatinine 24.41 mg/dL Urine Microalbumin/Creatinine TNP <31 3 Urine Protein Elctrophoresis 09/15/2019 [facility] Albumin 100 % (RDM) [address] [place] [address] [phone] Impression See Comment 4 Total Protein(Pep) Urine <4 mg/dL 5 Urinalysis Profile 09/15/2019 [facility] Urine Color Straw [address] [place] [address] [phone] Urine Appearance Cloudy Urine Specific [place] 1.006 Low 1.010-1.030 Urine pH 7.0 Normal 5-9 Urine Urobilinogen Negative Negative Urine Ketones Negative Negative Urine Protein Negative Negative Urine Leukocytes Negative Negative Urine Blood Negative Negative Urine Nitrite Negative Negative Urine Bilirubin Negative Negative Urine Glucose Negative Negative Protein 09/15/2019 [facility] Total 6.4 g/dL 6.3 - Electrophoresis [address] Protein(Pep) 7.9 [place] [address] [phone] Albumin 3.3 g/dL Abnormal 3.4-4.7 Alpha-1 Globulin 0.2 g/dL 0.1-0.3 Alpha-2 Globulin 1.0 g/dL 0.6-1.0 Beta Globulin 1.0 g/dL 0.7-1.2 Gamma Globulin 1.0 g/dL 0.6-1.6 Albumin/Globulin Ratio 1.08 Impression See Comment 6 Laboratory test 09/15/2019 [facility] Vitamin D 30.6 ng/mL Normal 20-50 7 finding [address] [facility] Total 25(Oh) [place] [address] [phone] Vitamin B12 And 09/15/2019 [facility] Vitamin B12 346 pg/mL Normal 180-914 8 Folate Serum [address] [place] [address] [phone] Folic Acid (Folate) 19.05 ng/mL >3.99 Iron & Iron Binding 09/15/2019 [facility] Iron 47 g/dL Low 50-212 Capacity [address] [place], [place] [id number] [phone] Unsaturated Iron Binding < 465 g/dL Total Iron Binding Capacity 480 g/dL High 250-450 Transferrin 343 mg/dL Normal 203-362 % Iron Saturation 10 % Low 15-55 Laboratory test 09/15/2019 [facility] Ferritin 3.8 ng/mL Low 11-307 finding 101 [place], [place] [address] [phone] CBC Auto Diff 09/15/2019 [facility] White Blood 3.7 Normal 3.5 -10.8 [address] [facility] Count 10^3/[place] [address] [phone] Red Blood Count 4.93 10^6/uL High 3.70-4.87 [...] Red Blood Cells % 0.0 Laboratory 09/15/2019 [facility] Free T4 (Free 0.85 Normal 0.61-1.12 test finding Thyroxine) ng/[place] [address] [phone] TSH (Thyroid Stim Horm) 1.11 mcIU/mL Normal 0.34-5.60 Cortisol 6.57 g/dL 9 Ceruloplasmin 28.6 mg/dL 10 Myasthenia 08/21/2019 [facility] MG Adult See Comment 11 Gravis (), [place] [address] [phone] Acetylcholine Receptor Binding 0.00 nmol/L <=0.02 12 Acetylcholine Recept Mod Ab 0 % 13 Anti-Striated Muscle Antibody Negative titer <1:120 14 Neutrophil Cytoplasmic 04/27/2019 [facility] C-Anca [place] [address] [phone] P-Anca Negative Negative 15 Comp Metabolic 04/27/2019 [facility] Sodium 139 mmol/L Normal 135-145 [place] [address] [phone] Potassium 4.3 mmol/L Normal 3.5-5.0 Chloride 106 [...] Egfr 60.3 >60 16 Laboratory test 04/27/2019 [facility] C Reactive < 1.00 Normal <8.01 [address] Protein mg/[place] [address] [phone] Erythrocyte Sed Rate 0 mm/Hr Normal 0-19 18 Anti Double Stranded Dna AB <12.3 IU/mL 19 Vitamin B12 04/27/2019 [facility] Vitamin B12 406 pg/mL Normal 180-914 20 [address] F[address] [place] [address] [phone] Folic Acid (Folate) > 20.00 ng/mL >3.99 21 Protein 04/27/2019 [facility] Total 6.4 g/dL 6.3 - Electrophoresis [address] Protein(Pep) 7.9 [place] [address] [phone] Albumin 3.6 g/dL 3.4-4.7 Alpha-1 Globulin 0.2 g/dL 0.1-0.3 Alpha-2 Globulin 0.9 g/dL 0.6-1.0 Beta Globulin 0.9 g/dL 0.7-1.2 Gamma Globulin 0.8 g/dL 0.6-1.6 Albumin/Globulin Ratio 1.28 Impression See Comment 22 Ssa/SSB Abs Igg 04/27/2019 [facility] SS-A/Ro Antibody <0.2 U [address] [place] [address] [phone] SS-B/La Antibody <0.2 U 24 Laboratory test 04/27/2019 [facility] Rheumatoid < 10 Normal < 15 [address] Factor IU/[place] [address] [phone] Laboratory test 04/27/2019 [facility] Anti Nuclear 0.2 U [address] [place] [address] [phone] CBC Auto Diff 04/27/2019 [facility] White Blood 4.3 Normal 3.5 -10. [address] Count 10^3/uL 8 [place] [address] [phone] Red Blood Count 4.66 10^6/uL Normal 3.70-4.87 [...] increase in protein values. Test Performed by: [place] [address] [place] Sander: John Wynn M.D. Ph.D.; CLIA# [id number] Test Performed by: [place] [address] [place] Sander: John Wynn M.D. Ph.D.; CLIA# [id number] 6 RESULT: No apparent monoclonal protein on serum electrophoresis. Test Performed by: [place] [address] Belt Sander: John Wynn M.D. Ph.D.; CLIA# [id number] 7 Total 25-Hydroxyvitamin D2 and D3 (25-OH-VitD) <10 ng/mL (severe deficiency) 10-19 ng/mL (mild to moderate deficiency) 20-50 ng/mL (optimum levels) 51-80 ng/mL (increased risk of hypercalciuria) >80 ng/mL (toxicity possible) 8 Normal Range 180 to 914 Indeterminate Range 145 to 180 Deficient Range <145 9 AM 8.7-22.4 PM <10 10 REFERENCE VALUE 20.0 - 51.0 Test Performed by: [facility] [place] [id number] Belt Sander: John Wynn M.D. Ph.D.; CLIA# [id number] 11 A negative result does not exclude the diagnosis of autoimmune myasthenia gravis. 12 ADDITIONAL INFORMATION This test was developed and its performance characteristics determined by [facility] in a manner consistent with CLIA requirements. This test has not been cleared or approved by the U.S. Food and Drug Administration. 13 REFERENCE VALUE 0-20% (reported as _% loss of AChR) ADDITIONAL INFORMATION This test was developed and its performance characteristics determined by [facility] in a manner consistent with CLIA requirements. This test has not been cleared or approved by the U.S. Food and Drug Administration. 14 ADDITIONAL INFORMATION This test was developed and its performance characteristics determined by [facility] in a manner consistent with CLIA requirements. This test has not been cleared or approved by the U.S. Food and Drug Administration. Test Performed by: [facility] [address] [address] Belt Sander: John Wynn M.D. Ph.D.; CLIA# [id number] 15 Negative for cANCA and pANCA patterns by immunofluorescence. ADDITIONAL INFORMATION This test was developed and its performance characteristics determined by [facility] in a manner consistent with CLIA requirements. This test has not been cleared or approved by the U.S. Food and Drug Administration. Test Performed by: [place] [address] Belt Sander: John Wynn M.D. Ph.D.; CLIA# [id number] 16 Because ethnic data is not always [...] dialysis) 17 Copy Result to: Vaibhav BABIN ([id number]) 18 Copy Result to: Vaibhav BABIN ([id number]) 19 REFERENCE VALUE <30.0 (Negative) Test Performed by: [place] [address] Belt Sander: John Wynn M.D. Ph.D.; CLIA# [id number] 20 Normal Range 180 to 914 Indeterminate Range 145 to 180 Deficient Range <145 21 Copy Result to: Vaibhav BABIN ([id number]) 22 RESULT: No apparent monoclonal protein on serum electrophoresis. Test Performed by: [place] [address] Belt Sander: John Wynn M.D. Ph.D.; CLIA# [id number] 23 REFERENCE VALUE <1.0 (Negative) 24 REFERENCE VALUE <1.0 (Negative) Test Performed by: [facility] [place] [address] Belt Sander: John Wynn M.D. Ph.D.; CLIA# [id number] 25 Copy Result to: Vaibhav BABIN ([id number]) 26 REFERENCE VALUE <=1.0 (Negative) Test Performed by: [facility] [place] [address] Belt Sander: John Wynn M.D. Ph.D.; CLIA# [id number] Procedures Date Code Description Status 05/08/2019 64283 Nerve Conduction 13+ Studies Completed 05/08/2019 84561 Needle Electromyography Complete, Five Or More Muscles Completed Studied Medical Devices Description No Information Available Encounters Type Date Location Provider Dx Diagnosis Office Visit 10/02/2019 Pulmonology And Sleep Alida León MD R06.83 Snoring 10:00a [facility] R53.83 Other fatigue G47.33 Obstructive sleep apnea (adult) (pediatric) Office Visit 09/19/2019 4:20p [facility] Internal Pawan Shannon NP R94.4 Abnormal results Medicine - Ccmob of kidney function studies M54.2 Cervicalgia Office Visit 09/10/2019 4:00p Rheumatology Vaibhav R53.83 Other fatigue [facility] - MD Jaden Ccmob M79.7 Fibromyalgia G43.009 Migraine w/o aura, not intractable, w/o status migrainosus M54.2 Cervicalgia N18.2 Chronic kidney disease, stage 2 (mild) Office Visit 08/20/2019 2:00p [facility] Cheo Masters M79.7 Fibromyalgia [facility] N.P. R20.2 Paresthesia of skin M54.81 Occipital neuralgia M54.2 Cervicalgia R53.83 Other fatigue Office Visit 06/21/2019 3:30p [facility] Errol Underwood M79.7 Fibromyalgia [facility] Ajith R20.2 Paresthesia of skin M54.81 Occipital neuralgia Office Visit 06/20/2019 1:40p [facility] Internal Pawan Shannon NP M79.7 [facility] J[facility].901 Unspecified asthma with (acute) exacerbation R05 Cough Office Visit 06/18/2019 3:00p Rheumatology Vaibhav Stanley M79.7 Fibromyalgia [facility] MD [place] R53.83 Other fatigue G47.30 Sleep apnea, unspecified Office Visit 05/31/2019 3:00p [facility] Internal Pawan Shannon NP G89.29 Other chronic Medicine - [facility] pain R53.83 Other fatigue Office Visit 05/31/2019 [place] Errol Underwood R20.2 Paresthesia of 12:00p Neurologic Ajith skin [facility] R51 Headache G89.29 Other chronic pain M79.10 Myalgia, unspecified site Office Visit 04/27/2019 9:00a [place] Neu[facility] Cheo R20.2 Paresthesia of [facility] Masters, N.P. skin R51 Headache H53.2 Diplopia [...] N.P. 08/20/2019 R20.2 Paresthesia of skin Cheo Guerrero, N.P. 08/20/2019 M54.81 Occipital neuralgia Cheotennille Masters, N.P. 08/20/2019 M54.2 Cervicalgia Cheo Masters, N.P. 08/20/2019 R53.83 Other fatigue Cheo Masters, N.P. 06/21/2019 M79.7 Fibromyalgia Errol Underwood M.D. 06/21/2019 R20.2 Paresthesia of skin Errol Underwood M.D. 06/21/2019 M54.81 Occipital neuralgia Errol Underwood M.D. 06/20/2019 M79.7 Fibromyalgia Pawan Shannon, RILEY 06/20/2019 J45.901 Unspecified asthma with (acute) Pawan Mirtha, AGRICULTURAL ENGINEER exacerbation 06/20/2019 R05 Cough Pawan Mirtha, AGRICULTURAL ENGINEER 06/18/2019 M79.7 Fibromyalgia Vaibhav Stanley MD 06/18/2019 [...] Headache Cheo Masters, N.P. 04/27/2019 H53.2 Diplopia Cheotennille Masters, N.P. Plan of Treatment Future Appointment(s):11/07/2019 3:00 pm - Ayla Arias NP at Pulmonology And Sleep [facility]10/19/2019 1:00 pm - Varun George MD at Neurosurgery [facility]12/11/2019 4:00 pm - Vaibhav Stanley MD at Rheumatology [facility] - [facility]12/31/2019 4:00 pm - Errol Underwood M.D. at [place] [facility]10/03/2019 - Pawan Shannon NPM79.7 FibromyalgiaNew Medication:Amitriptyline HCL 25 mg - one by mouth in the eveningComments:Try adding the amitriptyline at night.R10.9 Unspecified abdominal painNew Xrays:CT Abd/Pel W, Ordered: 10/03/19Comments:Have the bloodwork and CT scan done. I will notify you of the results. Functional Status Description No Information Available Mental Status Description No Information Available Referrals Refer to Dr Reason for Referral Status Appt Date Varun George MD Scheduled 10/19/2019 [address] [place] [id number] [phone] [facility] History of sleep apnea. Referral is for new Scheduled 10/04 study as it has been over five years and patient has gained >10% body weight since last sleep study, with ongoing and worsening fatigue. Eval and treat. [address] [place] [address] [phone] Pop Ivey MD Sent [address] [place] [address] [place] [address] [phone] Lolis Bahena MD Pain Management Sent [address] [place] [address] [phone]
--- OUTSIDE RECORDS SUMMARY | 2019-10-09 18:51 | XMS REPORT ---
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, unspecified Bipolar 58455813 SNOMED-CT Active affective 1-13 disorder, unspecified Relevant diagnostic tests/laboratory data Narrative No Information Procedures Procedure Code CodeSystem Target Date of Status Service Device Device Device Name Site Procedure Delivery Code Name UID Location SNOMEDCT () 2019-08-28 [facility] [address] [place], [place], [id number] Psychother 7104170 SNOMED-CT () 2019-09-18 [facility] patient [address] [place], [place], [id number] Encounters/Encounter Diagnoses Encounter Name Encounter Diagnosis Diagnosis Diagnosis Date of Service Code Code Name CodeSystem Diagnosis Delivery Location Psychotherapy - [address] [id number] Bipolar SNOMED-CT 2019-09-18 Behavioral Individual 30 affective Health min disorder, Clinic [address] [place], [place], [id number] Vital Signs No Information Social History Element Description Description Start End Code CodeSystem AdditionalInfo Date Date SexAssignedAtBirth Female F AdministrativeGender 03-26 Hospital Discharge Instructions Reason For Referral Medical Equipment FDA Assessments
--- OUTSIDE RECORDS SUMMARY | 2019-10-09 18:52 | XMS REPORT | Continuity of Care Document ---
:1975 External Reference #:[id number] Author Name Cheo Masters N.P. 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 Onset: 2018 status migrainosus Other speech disturbances Cheo Masters N.P. Onset: 11/10/2018 Headache associated with sexual activity Cheo Masters N.P. Onset: 2018 Fibromyalgia Errol Underwood M.D. Onset: 06/21/2019 Cervico-occipital neuralgia Errol Underwood M.D. Onset: 06/21/2019 Myalgia, unspecified site Errol Underwood M.D. Onset: 05/31/2019 Chronic pain Errol Underwood M.D. Onset: 05/31/2019 Headache Errol Underwodo M.D. Onset: 05/31/2019 Skin sensation disturbance Errol Underwood M.D. Onset: 05/31/2019 Social History Type Date Description Comments Sex Unknown Tobacco Use Start: Unknown Never Smoked Cigarettes Smoking Status Reviewed: 08/20/19 Never Smoked Cigarettes ETOH Use Denies alcohol use Tobacco Use Start: Unknown Patient has never smoked Exercise Type/Frequency Does not exercise Allergies, Adverse Reactions, Alerts Active Allergies Reaction Severity Comments Date Verapamil rash Moderate 10/17/2018 Soma rash Moderate 10/17/2018 Neurontin rash Moderate 10/17/2018 Medications Active Medications SIG Qnty Indications Ordering Provider Date Pregabalin 1 cap in the pm 30caps M79.7 Cheo Masters, 08/20/2019 100mg N.P. Capsules Pregabalin 1 tab in Am 30caps M79.7 Cheo Masters, 08/20/2019 150mg N.P. Capsules Medrol take as directed 21units M79.7 Errol Underwood, 06/21/2019 4mg TBPK M.D. Flovent HFA 2 puffs twice 12gm J45.901 Pawan Shannon NP 06/20/2019 daily, rinse mouth 110mcg/Act Aerosol after use. Topamax 2 tablets in the 150tabs G43.809 Cheo Masters, 11/10/2018 25mg Tablets am 3 tablets in pm N.P. Stiolto Respimat Inhale 2 Puffs Unknown Into The Lungs 2.5-2.5mcg/Act Daily as needed Aerosol Flucelvax To Be Given By Unknown Quadrivalent Pharmacist Per [id number] Standing Order 0.5ml Ema Diclofenac Sodium Unknown 1% Gel Methocarbamol 1 tab twice a day Clair Leigh, 500mg M.D. Tablets Trazodone HCL 1 every at bedtime Unknown 150mg Tablets Requip 1 tab in the am po Unknown 0.5mg Tablets Requip take 1 by mouth at Unknown 1mg Tablets bedtime Miralax 17 grams by mouth Unknown Powder every day as needed Pantoprazole Sodium (80 MG total Unknown daily) 1 tab in 40mg Tablets DR the am and 1 tab in the pm Latuda 1 tab at hs Unknown 120mg Tablets Hyoscyamine Sulfate take one tab by Unknown mouth as needed 0.125mg Tablets Dispers Hydroxyzine HCL 2 tabs daily Unknown 50mg (total 100 MG) 4 Tablets tabs at hs (total 200 MG) Furosemide 1 by mouth every Unknown 40mg day in am Tablets Duloxetine HCL 1 tab in am by Unknown 60mg mouth every day Caps DR Part Docusate Sodium 1 tab every 12 Unknown 100mg hours as needed Capsules for constipation Albuterol Sulfate one puff every 4 Unknown HFA hours wheezing 108(90Base) mcg/Act Aerosol Albuterol Sulfate 1 application Unknown every 6 hours as (2.5mg/3ML) 0.083% needed Nebulizer History Medications Clotrimazole dissolve into 70units Pawan Shannon NP 06/25/2019 - 10mg mouth slowly 5 07/09/2019 Anni times a day x 2 weeks Pregabalin 1 by mouth 60caps Errol Underwood, 06/22/2019 - 25mg twice a day M.D. 06/24/2019 Capsules with the 75 MG Pregabalin, for a total dose of 100 MG twice a day Code C Pregabalin Take 1 pill 60caps M79.7 Errol Underwood, 06/21/2019 - 100mg twice a day M.D. 08/20/2019 Capsules Cefuroxime Axetil one tablet 20tabs J45.901 Pawan Shannon NP 06/20/2019 - twice daily for 06/30/2019 250mg Tablets 10 days. Promethazine-DM 5ml every 4-6 118ml J45.901 Pawan Shannon NP 06/20/2019 - hours as needed 06/21/2019 6.25-15mg/5ML Syrup for cough Pregabalin one by mouth 60caps M79.7 Pawan Shannon NP 06/01/2019 - 75mg twice daily 06/21/2019 Capsules Immunizations Description No Information Available Vital Signs Date Vital Result Comment 08/20/2019 1:59pm Height 65 inches 5'5" Weight 257.00 lb Heart Rate 69 /min BP Systolic 126 mmHg BP Diastolic 76 mmHg BMI (Body Mass Index) 42.8 kg/m2 06/21/2019 3:29pm Height 65 inches 5'5" Weight 254.00 lb BMI (Body Mass Index) 42.3 kg/m2 Results Test Acquired Date Facility Test Result H/L Range Note CBC Auto 04/27/2019 [facility] White Blood 4.3 10^3/uL Normal 3.5-10.[address] [place] [address] [phone] Red Blood Count 4.66 10^6/uL Normal 3.70-4.87 [...] Nucleated Red Blood Cells % 0.0 Laboratory test 04/27/2019 [facility] Anti Nuclear 0.2 U 1 finding [address] [facility] [place] [address] [phone] Neutrophil 04/27/2019 [facility] C-Anca Negative Negative Cytoplasmic AB [address] [place] [address] [phone] P-Anca Negative Negative 2 Comp Metabolic 04/27/2019 [facility] Sodium 139 mmol/L Normal 135-[address] [place] [address] [phone] Potassium 4.3 mmol/L Normal 3.5-5.0 Chloride 106 [...] Egfr Non- 49.8 >60 Egfr 60.3 >60 3 Laboratory test 04/27/2019 [facility] C Reactive < 1.00 Normal <8.[address] Protein mg/[place] [address] [phone] Erythrocyte Sed Rate 0 mm/Hr Normal 0-19 5 Anti Double Stranded Dna AB <12.3 IU/mL 6 Vitamin B12 04/27/2019 [facility] Vitamin B12 406 pg/mL Normal 180-9[address] [place] [address] [phone] Folic Acid (Folate) > 20.00 ng/mL >3.99 8 Protein 04/27/2019 [facility] Total 6.4 g/dL 6.3 - Electrophoresis [address] Protein(Pep) 7.9 [place] [address] [phone] Albumin 3.6 g/dL 3.4-4.7 Alpha-1 Globulin 0.2 g/dL 0.1-0.3 Alpha-2 Globulin 0.9 g/dL 0.6-1.0 Beta Globulin 0.9 g/dL 0.7-1.2 Gamma Globulin 0.8 g/dL 0.6-1.6 Albumin/Globulin Ratio 1.28 Impression See Comment 9 Ssa/SSB Abs Igg 04/27/2019 [facility] SS-A/Ro Antibody <0.[address] [place] [address] [phone] SS-B/La Antibody <0.2 U 11 Laboratory test 04/27/2019 [facility] Rheumatoid < 10 IU/mL Normal <15 12 finding [facility] [place] [address] [phone] 1 REFERENCE VALUE <=1.0 (Negative) Test Performed by: [facility] [address] [place] [address] [employer] Fabricating: John Wynn M.D. Ph.D.; CLIA# [id number] 2 Negative for cANCA and pANCA patterns by immunofluorescence. ADDITIONAL INFORMATION This test was developed and its performance characteristics determined by [facility] in a manner consistent with CLIA requirements. This test has not been cleared or approved by the U.S. Food and Drug Administration. Test Performed by: [facility] [place] [address] [employer]: John Wynn M.D. Ph.D.; CLIA# [id number] 3 Because ethnic data is not always readily [...] 15-29 5 Kidney failure <15 (or dialysis) 4 Copy Result to: Vaibhav BABIN ([id number]) 5 Copy Result to: Vaibhav BABIN ([id number]) 6 REFERENCE VALUE <30.0 (Negative) Test Performed by: [place] [address] [employer]: John Wynn M.D. Ph.D.; CLIA# [id number] 7 Normal Range 180 to 914 Indeterminate Range 145 to 180 Deficient Range <145 8 Copy Result to: Vaibhav BABIN ([id number]) 9 RESULT: No apparent monoclonal protein on serum electrophoresis. Test Performed by: [facility] [place] [address] [employer]: John Wynn M.D. Ph.D.; CLIA# [id number] 10 REFERENCE VALUE <1.0 (Negative) 11 REFERENCE VALUE <1.0 (Negative) Test Performed by: [facility] [place] [address] [employer]: oJhn Wynn M.D. Ph.D.; CLIA# [id number] 12 Copy Result to: Vaibhav BABIN ([id number]) Procedures Date Code Description Status 05/08/2019 14712 Nerve Conduction 13+ Studies Completed 05/08/2019 29784 Needle Electromyography Complete, Five Or More Muscles Completed Studied Medical Devices Description No Information Available Encounters Type Date Location Provider Dx Diagnosis Office Visit 06/21/2019 Zurdo Parry79.7 Fibromyalgia 3:30p [facility] R20.2 Paresthesia of skin M54.81 Occipital neuralgia Office Visit 06/20/2019 1:40p [facility] Shannon NP M79.7 [facility] Unspecified asthma with (acute) exacerbation R05 Cough Office Visit 06/18/2019 3:00p Rheumatology Zurdo [place]79.7 Fibromyalgia [facility] Duarte MD, [facility] R53.83 Other fatigue G47.30 Sleep apnea, unspecified Office Visit 05/31/2019 3:00p [facility] Shannon NP G89.29 [facility] R53.83 Other fatigue Office Visit 05/31/2019 Analy Underwood R20.2 Paresthesia of 12:00p Neurologic Ajith skin [facility] R51 Headache G89.29 Other chronic pain M79.10 Myalgia, unspecified site Office Visit 04/27/2019 9:00a [facility]o R20.2 Paresthesia of [facility] Guerrero, N.P. skin R51 Headache H53.2 Diplopia Assessments Date Code Description Provider 08/20/2019 M79.7 Fibromyalgia Cheo Masters, N.P. 08/20/2019 R20.2 Paresthesia of skin Cheo Masters, N.P. 08/20/2019 M54.81 Occipital neuralgia Cheo Masters, N.P. 08/20/2019 M54.2 Cervicalgia Cheo Masters, N.P. 08/20/2019 R53.83 Other fatigue Cheo Masters, N.P. 06/21/2019 M79.7 Fibromyalgia Errol Underwood M.D. 06/21/2019 R20.2 Paresthesia of skin Errol Underwood M.D. 06/21/2019 M54.81 Occipital neuralgia Errol Underwood M.D. 06/20/2019 M79.7 Fibromyalgia Pawan Shannon NP 06/20/2019 J45.901 Unspecified asthma with (acute) Pawan Shannon NP exacerbation 06/20/2019 R05 Cough Pawan Shannon NP 06/18/2019 M79.7 Fibromyalgia Vaibhav Stanley MD 06/18/2019 [...] MD 04/27/2019 R20.2 Paresthesia of skin Cheo Masters N.P. 04/27/2019 R51 Headache Cheo Masters N.P. 04/27/2019 H53.2 Diplopia Cheo Masters N.P. Plan of Treatment Future Appointment(s):12/31/2019 4:00 pm - Errol Underwood M.D. at [facility]10/04/2019 3:00 pm - Alida León MD at [facility]09/10/2019 4:00 pm - Vaibhav Stanley MD at Rheumatology [facility] - [facility]08/20/2019 - Cheo Masters N.P.M79.7 FibromyalgiaNew Medication:Pregabalin 100 mg - 1 cap in the pmPregabalin 150 mg - 1 tab in AmFollow up:3 ooctpK64.2 Paresthesia of skinM54.81 Occipital jnirjnmphF04.2 CervicalgiaNew Xrays:MRI Cervical Spine Wo, Ordered: Recommendations:Call after your MRI to discuss gsugjhwB46.83 Other fatigue Functional Status Description No Information Available Mental Status Description No Information Available Referrals Refer to Reason for Referral Status Appt Date [facility] Sleep Clinic History of sleep apnea. Referral is for new Scheduled 10/04 study as it has been over five years and patient has gained >10% body weight since last sleep study, with ongoing and worsening fatigue. Eval and treat. [address] [place] [address] [phone] Pop Ivey MD Sent [address] [place] [address] [phone] Lolis Bahena MD Pain Management Sent [address] [place] [address] [phone]
--- OUTSIDE RECORDS SUMMARY | 2019-10-09 18:52 | XMS REPORT | Continuity of Care Document ---
:1975 External Reference #:[id number] Author Name Vaibhav Stanley MD (transmitted by agent of provider Key Ibarra) Address [address] [facility] [place] [address] Care Team Providers Name Role Phone Francia Gould MD - Internal Medicine Care Team Information School Transportation Supervisor Problems Active Problems Provider Date Other migraine, not intractable, without Cheotennille Masters, N.P. Onset: 2018 status migrainosus Other speech disturbances Cheoelfego Masters, N.P. Onset: 11/10/2018 Headache associated with sexual activity Cheotennille Masters, N.P. Onset: 2018 Fibromyalgia Errol Underwood [...] Unknown Never Smoked Cigarettes Smoking Status Reviewed: 09/10/19 Never Smoked Cigarettes ETOH Use Denies alcohol use Tobacco Use Start: Unknown Patient has never smoked Exercise Type/Frequency Does not exercise Allergies, Adverse Reactions, Alerts Active Allergies Reaction Severity Comments Date Verapamil rash Moderate 10/17/2018 Soma rash Moderate 10/17/2018 Neurontin rash Moderate 10/17/2018 Medications Active Medications SIG Qnty Indications Ordering Date Provider Duloxetine HCL 1 tab in am by linette Shannon NP 09/01/2019 60mg mouth every day Caps DR Part Pregabalin 1 cap in the pm 30caps M79.7 Cheo 08/20/2019 100mg Masters, N.P. Capsules Pregabalin 1 tab in Am 30caps M79.7 Cheo 08/20/2019 150mg Masters, N.P. Capsules Topamax 2 tablets in the 150tabs G43.809 Cheo 11/10/2018 25mg Tablets am 3 tablets in pm Masters, N.P. Stiolto Respimat Inhale 2 Puffs Unknown Into The Lungs 2.5-2.5mcg/Act Daily as needed Aerosol Flucelvax To Be Given By Unknown Quadrivalent Pharmacist Per [id number] Standing Order 0.5ml Ema Methocarbamol 1 tab twice a day Lu, 500mg Ajith Self Tablets Trazodone HCL 1 every night at 30tabs Pawan Shannon NP 150mg bedtime Tablets Requip 1 tab in the am [...] Unknown mouth as needed 0.125mg Tablets Dispers Furosemide 1 by mouth every Unknown 40mg Tablets day in am Albuterol Sulfate HFA one puff every 4 Unknown hours wheezing 108(90Base) mcg/Act Aerosol Albuterol Sulfate 1 application Unknown every 6 hours as (2.5mg/3ML) 0.083% needed Nebulizer History Medications Propranolol HCL Take 1 Tablet 60tabs Pawan Shannon NP 09/01/2019 - 20mg By Mouth Up To 09/09/2019 Tablets Twice Daily Clotrimazole dissolve into 70units Pawan hSannon NP 06/25/2019 - 10mg mouth slowly 5 [...] Available Vital Signs Date Vital Result Comment 09/10/2019 3:51pm Height 65 inches 5'5" Weight 262.00 lb Heart Rate 61 /min BP Systolic 127 mmHg BP Diastolic 79 mmHg Body Temperature 97.3 F Pain Level 6 O2 % BldC Oximetry 99 % BMI (Body Mass Index) 43.6 kg/m2 08/20/2019 1:59pm Height 65 inches 5'5" Weight 257.00 lb Heart Rate 69 /min BP Systolic 126 mmHg BP Diastolic 76 mmHg BMI (Body Mass Index) 42.8 kg/m2 Results Test Acquired Date Facility Test Result H/L Range Note Myasthenia 08/21/2019 [facility] MG Adult See Comment 1 [facility] (), [address] [place] [address] [phone] Acetylcholine Receptor Binding 0.00 nmol/L <=0.02 2 Acetylcholine Recept Mod Ab 0 % 3 Anti-Striated Muscle Antibody Negative titer <1:120 4 CBC Auto 04/27/2019 [facility] White Blood 4.3 10^3/uL Normal 3.5-10.8 Diff [address] [place] [address] [phone] Red Blood Count 4.66 10^6/uL Normal 3.70-4.87 [...] Blood Cells % 0.0 Laboratory test 04/27/2019 [facility] Anti Nuclear 0.2 U 5 [place] [address] [phone] Neutrophil 04/27/2019 [facility] C-Anca Negative [place] [address] [phone] P-Anca Negative Negative 6 Comp Metabolic 04/27/2019 [facility] Sodium 139 mmol/L Normal 135-145 [place] [address] [phone] Potassium 4.3 mmol/L Normal 3.5-5.0 Chloride 106 [...] Egfr Non- 49.8 >60 Egfr 60.3 >60 7 Laboratory test 04/27/2019 [facility] C Reactive < 1.00 Normal <8.01 [address] Protein mg/[place] [address] [phone] Erythrocyte Sed Rate 0 mm/Hr Normal 0-19 9 Anti Double Stranded Dna AB <12.3 IU/mL 10 Vitamin B12 04/27/2019 [facility] Vitamin B12 406 pg/mL Normal 180-914 11 And Folate [address] [place] [address] [phone] Folic Acid (Folate) > 20.00 ng/mL >3.99 12 Protein 04/27/2019 [facility] Total 6.4 g/dL 6.3 - Electrophoresis [address] Protein(Pep) 7.9 [place] [address] [phone] Albumin 3.6 g/dL 3.4-4.7 Alpha-1 Globulin 0.2 g/dL 0.1-0.3 Alpha-2 Globulin 0.9 g/dL 0.6-1.0 Beta Globulin 0.9 g/dL 0.7-1.2 Gamma Globulin 0.8 g/dL 0.6-1.6 Albumin/Globulin Ratio 1.28 Impression See Comment 13 Ssa/SSB Abs Igg 04/27/2019 [facility] SS-A/Ro Antibody <0.2 U [address] [place] [address] [phone] SS-B/La Antibody <0.2 U 15 Laboratory test 04/27/2019 [facility] Rheumatoid < 10 IU/mL Normal <15 [address] [place] [address] [phone] 1 A negative result does not exclude the diagnosis of autoimmune myasthenia gravis. 2 ADDITIONAL INFORMATION This test was developed and its performance characteristics determined by [facility] in a manner consistent with CLIA requirements. This test has not been cleared or approved by the U.S. Food and Drug Administration. 3 REFERENCE VALUE 0-20% (reported as _% loss of AChR) ADDITIONAL INFORMATION This test was developed and its performance characteristics determined by [facility] in a manner consistent with CLIA requirements. This test has not been cleared or approved by the U.S. Food and Drug Administration. 4 ADDITIONAL INFORMATION This test was developed and its performance characteristics determined by [facility] in a manner consistent with CLIA requirements. This test has not been cleared or approved by the U.S. Food and Drug Administration. Test Performed by: [facility] [address] [place] [address] [employer] Header: John Wynn M.D. Ph.D.; CLIA# [id number] 5 REFERENCE VALUE <=1.0 (Negative) Test Performed by: [facility] [address] [place] [address] [employer] Header: John Wynn M.D. Ph.D.; CLIA# [id number] 6 Negative for cANCA and pANCA patterns by immunofluorescence. ADDITIONAL INFORMATION This test was developed and its performance characteristics determined by [facility] in a manner consistent with CLIA requirements. This test has not been cleared or approved by the U.S. Food and Drug Administration. Test Performed by: [place] [address] [employer] Header: John Wynn M.D. Ph.D.; CLIA# [id number] 7 Because ethnic data is not always readily [...] 15-29 5 Kidney failure <15 (or dialysis) 8 Copy Result to: Vaibhav BABIN ([id number]) 9 Copy Result to: Vaibhav BABIN ([id number]) 10 REFERENCE VALUE <30.0 (Negative) Test Performed by: [place] [address] [employer] Header: John Wynn M.D. Ph.D.; CLIA# [id number] 11 Normal Range 180 to 914 Indeterminate Range 145 to 180 Deficient Range <145 12 Copy Result to: Vaibhav BABIN ([id number]) 13 RESULT: No apparent monoclonal protein on serum electrophoresis. Test Performed by: [facility] [place] [address] [employer] Header: John Wynn M.D. Ph.D.; CLIA# [id number] 14 REFERENCE VALUE <1.0 (Negative) 15 REFERENCE VALUE <1.0 (Negative) Test Performed by: [facility] [place] [address] [employer] Header: John Wynn M.D. Ph.D.; CLIA# [id number] 16 Copy Result to: Vaibhav BABIN ([id number]) Procedures Date Code Description Status 05/08/2019 83688 Nerve Conduction 13+ Studies Completed 05/08/2019 95426 Needle Electromyography Complete, Five Or More Muscles Completed Studied Medical Devices Description No Information Available Encounters Type Date Location Provider Dx Diagnosis Office Visit 08/20/2019 [facility] Remi Nichols.7 Fibromyalgia 2:00p [facility] N.PAnne R20.2 Paresthesia of skin M54.81 Occipital neuralgia M54.2 Cervicalgia R53.83 Other fatigue Office Visit 06/21/2019 3:30p [facility] Remi Ghosh.7 Fibromyalgia [facility] R20.2 Paresthesia of skin M54.81 Occipital neuralgia Office Visit 06/20/2019 1:40p [facility] Surinder Shannon NP M79.7 [facility] J[facility].901 Unspecified asthma with (acute) exacerbation R05 Cough Office Visit 06/18/2019 3:00p Rheumatology Zurdo [place]79.7 Fibromyalgia [facility] - [place] R53.83 Other fatigue G47.30 Sleep apnea, unspecified Office Visit 05/31/2019 3:00p [facility] Surinder Shannon NP G89.29 Other chronic Medicine - [facility] pain R53.83 Other fatigue Office Visit 05/31/2019 [facility] Errol Underwood, R20.2 Paresthesia of 12:00p Neurologic M.D. skin [facility] R51 Headache G89.29 Other chronic pain M79.10 Myalgia, unspecified site Office Visit 04/27/2019 9:00a [facility] Cheo R20.2 Paresthesia of [facility] Masters, N.P. skin R51 Headache H53.2 Diplopia Assessments Date Code Description Provider 09/10/2019 R53.83 Other fatigue Vaibhav Stanley MD 09/10/2019 M79.7 Fibromyalgia Vaibhav Stanley MD 09/10/2019 G43.009 Migraine without aura, not intractable, Vaibhav Stanley MD without status migrainosus 09/10/2019 M54.2 Cervicalgia Vaibhav Stanley MD 09/10/2019 N18.2 Chronic kidney disease, stage 2 (mild) Vaibhav Stanley MD 08/20/2019 M79.7 Fibromyalgia Cheoelfego Masters, N.P. 08/20/2019 R20.2 Paresthesia of skin Cheo Guerrero, N.P. 08/20/2019 M54.81 Occipital neuralgia Cheoelfego Masters, N.P. 08/20/2019 M54.2 Cervicalgia Cheoelfego Masters, N.P. 08/20/2019 R53.83 Other fatigue Cheo [...] Underwood M.D. 05/31/2019 R53.83 Other fatigue Pawan hSannon NP 05/31/2019 R51 Headache Errol Underwood M.D. 05/31/2019 G89.29 Other chronic pain Errol Underwood M.D. 05/31/2019 M79.10 Myalgia, unspecified site Errol Underwood M.D. 05/08/2019 R20.2 Paresthesia of skin Abel Nair MD 04/27/2019 R20.2 Paresthesia of skin Cheo Masters, N.P. 04/27/2019 R51 Headache Cheo Masters, N.P. 04/27/2019 H53.2 Diplopia Cheo Masters, N.P. Plan of Treatment Future Appointment(s):12/11/2019 4:00 pm - Vaibhav Stanley MD at [facility]12/31/2019 4:00 pm - Errol Underwood M.D. at [facility]10/04/2019 3:00 pm - Alida León MD at Pul[facility]ology [facility]09/10/2019 - Vaibhav Stanley, MDR53.83 Other fatigueFollow up:3 months Give patient [facility] lab contact info Please print out sleep clinic welcome letter that has contact information on it Please print out patient's upcoming pending appointments (Dr. Underwood in neurology) M79.7 JvwhotuayhhtA61.009 Migraine without aura, not intractable, without status rrpjqxkccezV06.2 GojxxwkrcniH78.2 Chronic kidney disease, stage 2 (mild) Functional Status Description No Information Available Mental Status Description No Information Available Referrals Refer to Reason for Referral Status Appt Date Varun George MD Created 8 [facility] [place] [address] [phone] [facility] Sleep Clinic History of sleep apnea. Referral is for new Scheduled 10/04 study as it has been over five years and patient has gained >10% body weight since last sleep study, with ongoing and worsening fatigue. Eval and treat. [address] [place] [address] [phone] Pop Ivey MD Sent [address] [place], [place] [id number] [phone] Lolis Bahena MD Pain Management Sent [address] [place] [address] [phone]
--- OUTSIDE RECORDS SUMMARY | 2019-10-09 18:52 | XMS REPORT | Continuity of Care Document ---
:1975 External Reference #:[id number] Author Name Pawan Shannon NP (transmitted by agent of provider Joann Alvarado) Address [address] [facility], [place] [address] Care Team Providers Name Role Phone Francia Gould MD - Internal Medicine Care Team Information Traffic Administrator [phone] Problems Active Problems Provider Date Other migraine, [...] Unknown Never Smoked Cigarettes Smoking Status Reviewed: 09/19/19 Never Smoked Cigarettes ETOH Use Denies alcohol use Tobacco Use Start: Unknown Patient has never smoked Exercise Type/Frequency Does not exercise Allergies, Adverse Reactions, Alerts Active Allergies Reaction Severity Comments Date Verapamil rash Moderate 10/17/2018 Soma rash Moderate 10/17/2018 Neurontin rash Moderate 10/17/2018 Medications Active Medications SIG Qnty Indications Ordering Date Provider Requip take 1 by mouth at 30tabs [...] am 3 tablets in pm Masters, N.P. Hydroxyzine HCL 100mg in Am 200 mg Unknown 50mg in PM Tablets Stiolto Respimat Inhale 2 Puffs Unknown Into The Lungs 2.5-2.5mcg/Act Daily as needed Aerosol Flucelvax To Be Given By Unknown Quadrivalent Pharmacist Per [id number] Standing Order 0.5ml Ema Trazodone HCL 1 [...] after use. Pregabalin one by mouth 60caps Zurdo79.7 Pawan Shannon NP 06/01/2019 - 75mg twice daily 06/21/2019 Capsules Immunizations Description No Information Available Vital Signs Date Vital Result Comment 09/19/2019 4:22pm Height 65 inches 5'5" Weight 265.12 lb Heart Rate 76 /min BP Systolic 126 mmHg BP Diastolic 76 mmHg Body Temperature 97.9 F O2 % BldC Oximetry 96 % BMI (Body Mass Index) 44.1 kg/m2 09/10/2019 3:51pm Height 65 inches 5'5" Weight 262.00 lb Heart Rate 61 /min BP Systolic 127 mmHg BP Diastolic 79 mmHg Body Temperature 97.3 F Pain Level 6 O2 % BldC Oximetry 99 % BMI (Body Mass Index) 43.6 kg/m2 Results Test Acquired Date Facility Test Result H/L Range Note Laboratory test 09/15/2019 [facility] Free T4 0.85 ng/dL Normal 0.61-1.12 finding ([place] [address] Thyroxine [phone] ) TSH (Thyroid Stim Horm) 1.11 mcIU/mL Normal 0.34-5.60 Cortisol 6.57 g/dL 1 Ceruloplasmin 28.6 mg/dL 2 CBC Auto 09/15/2019 [facility] White Blood 3.7 10^3/uL Normal 3.5-10.8 [place] [address] [phone] Red Blood Count 4.93 10^6/uL High 3.70-4.87 [...] Red Blood Cells % 0.0 Laboratory test 09/15/2019 [facility] Ferritin 3.8 ng/mL Low 11-307 [place] [address] [phone] Iron & Iron Binding 09/15/2019 [facility] Iron 47 g/dL Low 50-212 [place] [address] [phone] Unsaturated Iron Binding < 465 g/dL Total Iron Binding Capacity 480 g/dL High 250-450 Transferrin 343 mg/dL Normal 203-362 % Iron Saturation 10 % Low 15-55 Vitamin B12 09/15/2019 [facility] Vitamin B12 346 pg/mL Normal 180-914 [address] [place] [address] [phone] Folic Acid (Folate) 19.05 ng/mL >3.99 Laboratory test 09/15/2019 [facility] Vitamin D 30.6 Normal 20 -50 [address] Total ng/[place] [address] 25(Oh) [phone] Protein 09/15/2019 [facility] Total 6.4 g/dL 6.3 - Electrophoresis [address] Protein(Pep 7.9 [place] [address] ) [phone] Albumin 3.3 g/dL Abnormal 3.4-4.7 Alpha-1 Globulin 0.2 g/dL 0.1-0.3 Alpha-2 Globulin 1.0 g/dL 0.6-1.0 Beta Globulin 1.0 g/dL 0.7-1.2 Gamma Globulin 1.0 g/dL 0.6-1.6 Albumin/Globulin Ratio 1.08 Impression See Comment 5 Urinalysis Profile 09/15/2019 [facility] Urine Color Straw [address] [place] [address] [phone] Urine Appearance Cloudy Urine Specific [place] 1.006 Low 1.010-1.030 Urine pH 7.0 Normal 5-9 Urine Urobilinogen Negative Negative Urine Ketones Negative Negative Urine Protein Negative Negative Urine Leukocytes Negative Negative Urine Blood Negative Negative Urine Nitrite Negative Negative Urine Bilirubin Negative Negative Urine Glucose Negative Negative Urine Microalbumin 09/15/2019 [facility] Ur Microalbumin < 15.[address] (mg/L) mg/[place] [address] [phone] Urine Creatinine 24.41 mg/dL Urine Microalbumin/Creatinine TNP <31 6 Laboratory test 09/15/2019 [facility] Total Protein < 4 mg/dL finding [address] [place] [address] [phone] Creatinine Random Urine 24.41 mg/dL Comp Metabolic 09/15/2019 [facility] Sodium 140 mmol/L Normal 135-[address] [place] [address] [phone] Potassium 4.2 mmol/L Normal 3.5-5.0 Chloride 108 [...] Egfr Non- 48.4 >60 Egfr 58.5 >60 7 Myasthenia 08/21/2019 [facility] MG Adult See Comment [address] [place] [address] [phone] Acetylcholine Receptor Binding 0.00 nmol/L <=0.02 9 Acetylcholine Recept Mod Ab 0 % 10 Anti-Striated Muscle Antibody Negative titer <1:120 11 CBC Auto 04/27/2019 [facility] White Blood 4.3 10^3/uL Normal 3.5-10.[address] [place] [address] [phone] Red Blood Count 4.66 10^6/uL Normal 3.70-4.87 [...] Blood Cells % 0.0 Laboratory test 04/27/2019 [facility] Anti Nuclear 0.2 U 12 finding [address] [facility] [place] [address] [phone] Neutrophil 04/27/2019 [facility] C-Anca Negative Negative Cytoplasmic AB [address] [place] [address] [phone] P-Anca Negative Negative 13 Comp Metabolic 04/27/2019 [facility] Sodium 139 mmol/L Normal 135-145 Panel [address] [place] [address] [phone] Potassium 4.3 mmol/L Normal 3.5-5.0 Chloride 106 [...] Egfr Non- 49.8 >60 Egfr 60.3 >60 14 Laboratory test 04/27/2019 [facility] C Reactive < 1.00 Normal <8.01 [address] Protein mg/[place] [address] [phone] Erythrocyte Sed Rate 0 mm/Hr Normal 0-19 16 Anti Double Stranded Dna AB <12.3 IU/mL 17 Vitamin B12 04/27/2019 [facility] Vitamin B12 406 pg/mL Normal 180-[address] [place] [address] [phone] Folic Acid (Folate) > 20.00 ng/mL >3.99 19 Protein 04/27/2019 [facility] Total 6.4 g/dL 6.3 - Electrophoresis [address] Protein(Pep) 7.9 [place] [address] [phone] Albumin 3.6 g/dL 3.4-4.7 Alpha-1 Globulin 0.2 g/dL 0.1-0.3 Alpha-2 Globulin 0.9 g/dL 0.6-1.0 Beta Globulin 0.9 g/dL 0.7-1.2 Gamma Globulin 0.8 g/dL 0.6-1.6 Albumin/Globulin Ratio 1.28 Impression See Comment 20 Ssa/SSB Abs Igg 04/27/2019 [facility] SS-A/Ro Antibody <0.[address] [place] [address] [phone] SS-B/La Antibody <0.2 U 22 Laboratory test 04/27/2019 [facility] Rheumatoid < 10 IU/mL Normal <15 23 finding [facility] [place] [address] [phone] 1 AM 8.7-22.4 PM <10 2 REFERENCE VALUE 20.0 - 51.0 Test Performed by: [address] [address] Negotiations Director: John Wynn M.D. Ph.D.; CLIA# [id number] 3 Normal Range 180 to 914 Indeterminate Range 145 to 180 Deficient Range <145 4 Total 25-Hydroxyvitamin D2 and D3 (25-OH-VitD) <10 ng/mL (severe deficiency) 10-19 ng/mL (mild to moderate deficiency) 20-50 ng/mL (optimum levels) 51-80 ng/mL (increased risk of hypercalciuria) >80 ng/mL (toxicity possible) 5 RESULT: No apparent monoclonal protein on serum electrophoresis. Test Performed by: [facility] [address] [place] [address] Negotiations Director: John Wynn M.D. Ph.D.; CLIA# [id number] 6 Unable to calculate due to low microalbumin 7 Because ethnic data is not always [...] 5 Kidney failure <15 (or dialysis) 8 A negative result does not exclude the diagnosis of autoimmune myasthenia gravis. 9 ADDITIONAL INFORMATION This test was developed and its performance characteristics determined by [facility] in a manner consistent with CLIA requirements. This test has not been cleared or approved by the U.S. Food and Drug Administration. 10 REFERENCE VALUE 0-20% (reported as _% loss of AChR) ADDITIONAL INFORMATION This test was developed and its performance characteristics determined by [facility] in a manner consistent with CLIA requirements. This test has not been cleared or approved by the U.S. Food and Drug Administration. 11 ADDITIONAL INFORMATION This test was developed and its performance characteristics determined by [facility] in a manner consistent with CLIA requirements. This test has not been cleared or approved by the U.S. Food and Drug Administration. Test Performed by: [facility] [place] [address] Negotiations Director: John Wynn M.D. Ph.D.; CLIA# [id number] 12 REFERENCE VALUE <=1.0 (Negative) Test Performed by: [facility] [place] [address] Negotiations Director: John Wynn M.D. Ph.D.; CLIA# [id number] 13 Negative for cANCA and pANCA patterns by immunofluorescence. ADDITIONAL INFORMATION This test was developed and its performance characteristics determined by [facility] in a manner consistent with CLIA requirements. This test has not been cleared or approved by the U.S. Food and Drug Administration. Test Performed by: [facility] [place] [address] Negotiations Director: John Wynn M.D. Ph.D.; CLIA# [id number] 14 Because ethnic data is not always readily [...] 15-29 5 Kidney failure <15 (or dialysis) 15 Copy Result to: Vaibhav BABIN ([id number]) 16 Copy Result to: Vaibhav BABIN ([id number]) 17 REFERENCE VALUE <30.0 (Negative) Test Performed by: [place] [address] Negotiations Director: John Wynn M.D. Ph.D.; CLIA# [id number] 18 Normal Range 180 to 914 Indeterminate Range 145 to 180 Deficient Range <145 19 Copy Result to: Vaibhav BABIN ([id number]) 20 RESULT: No apparent monoclonal protein on serum electrophoresis. Test Performed by: [place] [address] Negotiations Director: John Wynn M.D. Ph.D.; CLIA# [id number] 21 REFERENCE VALUE <1.0 (Negative) 22 REFERENCE VALUE <1.0 (Negative) Test Performed by: [place] [address] Negotiations Director: John Wynn M.D. Ph.D.; CLIA# [id number] 23 Copy Result to: Vaibhav BABIN ([id number]) Procedures Date Code Description Status 05/08/2019 44526 Nerve Conduction 13+ Studies Completed 05/08/2019 47808 Needle Electromyography Complete, Five Or More Muscles Completed Studied Medical Devices Description No Information Available Encounters Type Date Location Provider Dx Diagnosis Office Visit 09/10/2019 [facility]ology [facility] Vaibhav Stanley R53.83 Other fatigue [facility]7 Fibromyalgia G43.009 Migraine w/o aura, not intractable, w/o status migrainosus M54.2 Cervicalgia N18.2 Chronic kidney disease, stage 2 (mild) Office Visit 08/20/2019 2:00p [place] [facility]rologic Remi Nichols.7 Fibromyalgia Services [facility] N.P. R20.2 Paresthesia of skin M54.81 Occipital neuralgia M54.2 Cervicalgia R53.83 Other fatigue Office Visit 06/21/2019 3:30p [place] Zurdo Johnson79.7 Fibromyalgia [facility] Ajith R20.2 Paresthesia of skin M54.81 Occipital neuralgia Office Visit 06/20/2019 1:40p [facility] Internal Pawan Shannon NP M79.7 [facility] J45.901 Unspecified asthma with (acute) exacerbation R05 Cough Office Visit 06/18/2019 3:00p Rheumatology Remi Bingham.7 Fibromyalgia Services Of [facility] MD [place] R53.83 Other fatigue G47.30 Sleep apnea, unspecified Office Visit 05/31/2019 3:00p [facility] Internal Pawan Shannon NP G89.29 [facility] pain R53.83 Other fatigue Office Visit 05/31/2019 [place] R20.2 Paresthesia of 12:00p Neurologic M.D. skin Services [facility] R51 Headache G89.29 Other chronic pain M79.10 Myalgia, unspecified site Office Visit 04/27/2019 9:00a [place] Sandeep Laraua R20.2 Paresthesia of Services [facility] Guerrero, N.P. skin R51 Headache H53.2 Diplopia Assessments Date Code Description Provider 09/19/2019 R94.4 Abnormal results of kidney function [...] Errol Underwood M.D. 06/20/2019 M79.7 Fibromyalgia Pawan Mirtha, RILEY 06/20/2019 J45.901 Unspecified asthma with (acute) Pawan Mirtha, GRAPHIC ILLUSTRATOR exacerbation 06/20/2019 R05 Cough Pawan Mirtha, GRAPHIC ILLUSTRATOR 06/18/2019 M79.7 Fibromyalgia Vaibhav Stanley MD 06/18/2019 [...] Cheo Masters, N.P. 04/27/2019 R51 Headache Cheo Masters N.P. 04/27/2019 H53.2 Diplopia Cheo Masters N.Demarcus. Plan of Treatment Future Appointment(s):10/19/2019 1:00 pm - Varun George MD at Neurosurgery [facility]12/11/2019 4:00 pm - Vaibhav Stanley MD at [facility]umatology [facility]12/31/2019 4:00 pm - Errol Underwood M.D. at [place] [facility]10/04/2019 3:00 pm - Alida León MD at Pul[facility]ology [facility]09/19/2019 - Pawan Shannon, NPR94.4 Abnormal results of kidney function studiesNew Labs:Creatinine Clearance, Ordered: 09/19/19Total Protein 24HR Urine, Ordered: 09/19/19Creatinine, Ordered : 09/19/19Comments:It is important to stop taking the ibuprofen completely as well as all other NSAIDs. Continue drinking plenty of water.Have the urine testing done next week.M54.2 CervicalgiaComments:I have increased the methocarbamol as we discussed. If this is not helping let me know. Functional Status Description No Information Available Mental Status Description No Information Available Referrals Refer to Reason for Referral Status Appt Date Varun George MD Created [address] [facility] [place] [address] [phone] [facility] Sleep Clinic History of sleep apnea. Referral is for new Scheduled 10/04 study as it has been over five years and patient has gained >10% body weight since last sleep study, with ongoing and worsening fatigue. Eval and treat. [address] [address] [phone] Pop Ivey MD Sent [address] [place] [address] [phone] Lolis Bahena MD Pain Management Sent [address] [place] [address] [phone]
[2019-10-09] MEDS ORDERED: Ketorolac INJ* 30 MG/ML 1 ML VIAL IV PUSH ONE (19:30)
[2019-10-09] MEDS ORDERED: NS 0.9% 1000 ML** 1,000 ML IV ONE (19:30)
[2019-10-09] MEDS ORDERED: Morphine 4 MG/ML VIAL (1 ml) 4 MG/ML VIAL IV ONE (19:36)
--- NOTE | 2019-10-09 19:36 | ED ---
Abdominal Pain/Female - HPI Summary HPI Summary: 44 year old F presenting to [facility] accompanied by family complains of right flank pain since today 10/09/2019 AM. Hx stage 2 kidney disease. Hx kidney stones. Patient states her pain does not feel like the pain she gets when she has kidney stones. Patient reports no urge to urinate. Patient denies fever, nausea/vomiting, dysuria, hematuria. The patient rates the pain 10/10 in severity. Symptoms aggravated by nothing. Symptoms alleviated by nothing. She reports recent ABD/PEL CT done today prior to onset of pain and recent elevated lipase and amylase. She last ate tonight before arrival. Hx cholecystectomy, caesarean sections x2, gastric bypass in 2011 without complications, exploratory laproscopy. Medications reviewed. Allergies noted. - History of Current Complaint Chief Complaint: EDAbdPain Stated Complaint: PAIN PER PT Time Seen by Provider: 10/09/19 19:29 Hx Obtained From: Patient Onset/Duration: Lasting Hours - 10/09/2019 AM, Still Present Timing: Constant Severity Currently: Severe Pain Intensity: 10 Pain Scale Used: 0-10 Numeric Location: Flank - Right Aggravating Factor(s): Nothing Alleviating Factor(s): Nothing Associated Signs and Symptoms: Positive: Negative - fever, nausea/vomiting, dysuria, hematuria, Other: - no urge to urinate Allergies/Adverse Reactions: Allergies Allergy/AdvReac Type Severity Reaction Status Date / Time verapamil Allergy Intermediate Hives Verified 10/09/19 19:43 carisoprodol [From Soma] Allergy Hives Verified 10/09/19 19:43 gabapentin [From Neurontin] Allergy Hives Verified 10/09/19 19:43 Penicillins Allergy Unknown Verified 10/09/19 19:43 Reaction Details seasonal Allergy Unknown Uncoded 10/09/19 19:43 Reaction Details TIDE LAUNDRY DETERGANT Allergy Hives Uncoded 10/09/19 19:43 Home Medications: Home Medications Amitriptyline TAB* [Elavil TAB*] 25 mg PO QPM 10/09/19 [History Confirmed ] Ferrous Sulfate TAB* 325 mg PO BID 10/09/19 [History Confirmed 10/09/19] Methocarbamol TAB* [Robaxin 500 MG TAB*] 750 mg PO Q8HR PRN 10/09/19 [History Confirmed 10/09/19] Pregabalin 150 mg PO QAM 10/09/19 [History Confirmed 10/09/19] Pregabalin 100 mg CAP (*) [Lyrica 100 mg CAP (*)] 100 mg PO QPM 10/09/19 [ History Confirmed 10/09/19] Propranolol 20 mg TAB [Inderal 20 mg TAB] 20 mg PO BID 10/09/19 [History Confirmed 10/09/19] hydrOXYzine HCL TAB* [Atarax TAB 50 MG *] 100 mg PO TID 10/09/19 [History Confirmed 10/09/19] rOPINIRole TAB* [Requip TAB*] 1 mg PO BEDTIME 10/09/19 [History Confirmed ] PMH/Surg Hx/FS Hx/Imm Hx Endocrine/Hematology History: Denies: Hx Diabetes, Hx Sickle Cell Disease Cardiovascular History: Denies: Hx Hypertension, Hx Pacemaker/ICD Respiratory History: Denies: Hx Asthma History: Denies: Hx Dialysis, Hx Renal Disease Musculoskeletal History: Reports: Other Musculoskeletal History - sciatica Sensory History: Reports: Hx Contacts or Glasses Denies: Hx Legally Blind, Hx Deafness, Hx Hearing Aid Opthamlomology History: Reports: Hx Contacts or Glasses Denies: Hx Legally Blind Neurological History: Reports: Other Neuro Impairments/Disorders - conversion dissorder Psychiatric History: Reports: Hx Anxiety, Hx Panic Disorder - ANXIERTY DISORDER , Hx Post Traumatic Stress Disorder, Hx Bipolar Disorder, Other Psychiatric Issues/Disorders - borderline personality disorder - Surgical History Surgery Procedure, Year, and Place: cholecystectomy. GASTRIC BYPASS. C SECTION X2. PARTIAL HYSTERECTOMY. EAR TUBES. LOWER BACK SURGERY-[facility]AGON NO METAL Infectious Disease History: No Infectious Disease History: Denies: Traveled Outside the [place] in Last 30 Days - Family History Known Family History: Positive: Diabetes - Social History Alcohol Use: None Hx Substance Use: No Substance Use Type: Reports: None Hx Tobacco Use: No Smoking Status (MU): Never Smoked Tobacco Review of Systems Negative: Fever Negative: Vomiting, Nausea Positive: flank pain - Right. Negative: dysuria, hematuria, urgency All Other Systems Reviewed And Are Negative: Yes Physical Exam - Summary Physical Exam Summary: Constitutional: Well-developed, Well-nourished, Alert. (-) Distressed Skin: Warm, Dry HENT: Normocephalic; Atraumatic Eyes: Conjunctiva normal Neck: Musculoskeletal ROM normal neck. (-) JVD, (-) Stridor, (-) Tracheal deviation Cardio: Rhythm regular, rate normal, Heart sounds normal; Intact distal pulses; The pedal pulses are 2+ and symmetric. Radial pulses are 2+ and symmetric. (-) Murmur Pulmonary/Chest wall: Effort normal. (-) Respiratory distress, (-) Wheezes, (-) Rales Abd: Soft, right flank pain and right sided mid abdominal pain, (-) Distension, (-) Guarding, (-) Rebound Musculoskeletal: (-) Edema Lymph: (-) Cervical adenopathy Neuro: Alert, Oriented x3 Psych: Mood and affect Normal Triage Information Reviewed: Yes Vital Signs On Initial Exam: Initial Vitals Temp Pulse Resp BP Pulse Ox 97.9 F 80 18 146/94 100 10/09/19 18:41 10/09/19 18:41 10/09/19 18:41 10/09/19 18:41 10/09/19 18:41 Vital Signs Reviewed: Yes Procedures - Sedation Patient Received Moderate/Deep Sedation with Procedure: No Diagnostics - Vital Signs Vital Signs Temp Pulse Resp BP Pulse Ox 10/09/19 19:16 99 F 77 20 136/114 98 10/09/19 18:41 97.9 F 80 18 146/94 100 - Laboratory Result Diagrams: 10/09/19 19:41 10/09/19 19:41 Lab Statement: Any lab studies that have been ordered have been reviewed, and results considered in the medical decision making process. - CT Abd/Pel CT Interpretation Completed By: Radiologist - 1. No CT findings to correlate with patient's symptomatology. Specifically no obstructing renal or ureteral calculi. 2. Expected appearance of patient's Justin-en-Y gastric bypass. ED physician has reviewed this report. Abdominal Pain Fem Course/Dx - Course Course Of Treatment: 44 y/o F with hx kidney disease and hx kidney stones presents with right flank pain and no urinary urgency since today 10/09/2019 AM. She had recent ABD/PEL CT done today prior to onset of pain and recent elevated lipase and amylase. Upon physical exam, the patient has right flank pain and right sided mid abdominal pain. The abdomen is not distended. Bloodwork results with no significant abnormalities except for MCV 70, MCH 26, RDW 17, creatinine 1.16, glucose 105, lipase 131. Urinalysis results with no significant abnormalities. ABD/PEL CT shows 1. No CT findings to correlate with patient's symptomatology. Specifically no obstructing renal or ureteral calculi. 2. Expected appearance of patient's Justin-en-Y gastric bypass. In the ED course, the patient was given ketorolac, morphine, normal saline fluids, ondansetron. ED workup did not elicit any objective explanation for patient's symptoms. No evidence of renal stones or UTI. Upon EMR review, patient noted to have multiple ED visits for back pain/sciatica, as well as RUQ abdominal pain. Patient somewhat frustrated given no clear explanation for her symptoms. Patient encouraged to follow up with PCP. Patient will be discharged home with follow up from her primary care provider in 1-2 days. Patient was instructed to return to Emergency Department for new or worsening symptoms. Patient understands and is agreeable to this plan. - Diagnoses Provider Diagnoses: Abdominal pain, Flank pain Discharge ED - Sign-Out/Discharge Documenting (check all that apply): Patient Departure - Discharge Plan Condition: Stable Disposition: HOME Patient Education Materials: Flank Pain (ED) Referrals: Pawan Shannon NP [Primary Care Provider] - 1 Day Additional Instructions: Follow up with your primary care provider in 1-2 days. Return to the Emergency Department for new or worsening symptoms. - Billing Disposition and Condition Condition: STABLE Disposition: Home - Attestation Statements Document Initiated by Magaly: Yes Documenting Scribe: Flor Mao Provider For Whom Magaly is Documenting (Include Credential): Errol Edmondson DO Scribe Attestation: Flor Wheeler scribed for Errol Edmondson DO on 10/09/19 at 2204. Scribe Documentation Reviewed: Yes Provider Attestation: The documentation as recorded by the Flor fowler accurately reflects the service I personally performed and the decisions made by , Errol Edmondson DO Status of Scrstarr Document: Viewed
[2019-10-09] MEDS ORDERED: Ondansetron INJ* 2 MG/ML VIAL IV ONE (19:37)
[2019-10-09 19:52] LABS: ABS Eosinophils 0.1 10^3/ul (0-0.6); ABS Lymphocytes 1.9 10^3/ul (1.0-4.8); ABS Monocytes 0.4 10^3/ul (0-0.8); ABS Neutrophils 2.3 10^3/ul (1.5-7.7); Hematocrit 38 % (35-47); Hemoglobin 12.4 g/dL (12.0-16.0); Lymphocyte % 39.9 %; Mean Corpuscular HGB Conc 33 g/dL (31-36); Mean Corpuscular Hemoglobin 26 pg (27-31); Mean Corpuscular Volume 79 fL (80-97); Mean Platelet Volume 8.3 fL (7.4-10.4); Nucleated Red Blood Cells % 0.1; Platelet Count 222 10^3/uL (150-450); Red Blood Count 4.85 10^6 /uL (3.70-4.87); Red Cell Distribution Width 17 % (10-15); White Blood Count 4.7 10^3/uL (3.5-10.8)
[2019-10-09 20:06] LABS: Albumin 4.3 g/dL (3.2-5.2); Calcium 9.2 mg/dL (8.6-10.3); Potassium 3.8 mmol/L (3.5-5.0); Total Bilirubin 0.2 mg/dL (0.2-1.0)
[2019-10-09 20:12] LABS: Albumin/Globulin Ratio 1.8 (1-3); BUN/Creatinine Ratio 12.1 (8-20); EGFR African American 60.9 (>60); EGFR Non-African American 50.3 (>60); Globulin 2.4 g/dL (2-4); Total Protein 6.7 g/dL (6.4-8.9)
[2019-10-09 20:31] LABS: HCG Pregnancy 2.61 mIU/mL
[2019-10-09 21:23] LABS: Urine Appearance Clear; Urine Bilirubin Negative (Negative); Urine Blood Negative (Negative); Urine Color Yellow; Urine Glucose Negative (Negative); Urine Ketones Negative (Negative); Urine Nitrite Negative (Negative); Urine Protein Negative (Negative); Urine Specific Gravity 1.017 (1.010-1.030); Urine Urobilinogen Negative (Negative)
[2019-10-09 21:57] VITALS: BP 122/71
== END 2019-10-09 21:45 | disposition home or self-care (01) ==
LOC: ED 18:40
DX: R10.9 Unspecified abdominal pain (principal); N18.2 Chronic kidney disease, stage 2 (mild); Z87.442 Personal history of urinary calculi; F41.9 Anxiety disorder, unspecified; Z90.711 Acquired absence of uterus with remaining cervical stump; Z90.49 Acquired absence of other specified parts of digestive tract; Z98.84 Bariatric surgery status; Z88.0 Allergy status to penicillin; Z88.8 Allergy status to other drugs, medicaments and biological substances; Z91.048 Other nonmedicinal substance allergy status
CPT/HCPCS: 36415; 74176; 80053; 81003; 83690; 84702; 85025; 96361; 96374; 96375; 99284; J1885; J2270; J2405

== ENCOUNTER 2020-10-08 12:20 | Observation (INO) ==
[2020-10-08 14:27] LABS: ABS Lymphocytes 1.3 10^3/ul (1.0-4.8); ABS Monocytes 0.8 10^3/ul (0-0.8); ABS Neutrophils 8.6 10^3/ul (1.5-7.7); Eosinophil % 0.4 %; Hematocrit 46 % (35-47); Hemoglobin 15.4 g/dL (12.0-16.0); Lymphocyte % 11.9 %; Mean Corpuscular HGB Conc 33 g/dL (31-36); Mean Corpuscular Hemoglobin 28 pg (27-31); Mean Corpuscular Volume 85 fL (80-97); Mean Platelet Volume 8.8 fL (7.4-10.4); Platelet Count 293 10^3/uL (150-450); Red Blood Count 5.42 10^6 /uL (3.70-4.87); Red Cell Distribution Width 14 % (10-15); White Blood Count 10.8 10^3/uL (3.5-10.8)
[2020-10-08 14:34] LABS: INR 0.92 (0.82-1.09)
[2020-10-08] MEDS ORDERED: Ketorolac *IM* INJ 60 MG/2 ML VIAL IM ONE (14:34)
[2020-10-08 14:46] LABS: ALT 23 U/L (7-52); AST 18 U/L (13-39); Albumin 4.9 g/dL (3.2-5.2); Albumin/Globulin Ratio 1.6 (1-3); Alkaline Phosphatase 75 U/L (34-104); Anion Gap 11 mmol/L (2-11); BUN/Creatinine Ratio 29.4 (8-20); Blood Urea Nitrogen 30 mg/dL (6-24); CO2 Carbon Dioxide 28 mmol/L (22-32); Calcium 10.4 mg/dL (8.6-10.3); Chloride 100 mmol/L (101-111); EGFR African American 70.3 (>60); EGFR Non-African American 58.1 (>60); Glucose 77 mg/dL (70-100); Potassium 3.6 mmol/L (3.5-5.0); Sodium 139 mmol/L (135-145); Total Protein 7.9 g/dL (6.4-8.9)
[2020-10-08 14:51] LABS: Troponin I 0.03 ng/mL (<0.03)
[2020-10-08 15:01] LABS: Lipase 42 U/L (11.0-82.0)
[2020-10-08 17:59] LABS: Troponin I 0.03 ng/mL (<0.03)
[2020-10-08] MEDS ORDERED: Lurasidone 120 mg TAB PO SCH (21:00)
[2020-10-08] MEDS ORDERED: Enoxaparin 40 MG/0.4 ML SYR SUBCUT SCH (21:00)
[2020-10-09] MEDS ORDERED: Vitamin THERAPEUTIC TAB PO SCH (09:00)
[2020-10-09 11:30] LABS: Albumin 4.4 g/dL (3.2-5.2); Calcium 9.4 mg/dL (8.6-10.3); Potassium 3.7 mmol/L (3.5-5.0); Total Bilirubin 0.3 mg/dL (0.2-1.0)
[2020-10-09 11:35] LABS: Albumin/Globulin Ratio 1.8 (1-3); EGFR African American 61.2 (>60); EGFR Non-African American 50.6 (>60); Globulin 2.5 g/dL (2-4); Total Protein 6.9 g/dL (6.4-8.9)
[2020-10-09 11:44] LABS: Magnesium 2.3 mg/dL (1.9-2.7)
[2020-10-09 11:50] LABS: C Reactive Protein 3.88 mg/L (<8.01)
[2020-10-09] MEDS ORDERED: Ondansetron 4 mg VIAL 2 MG/ML 2 ml VIAL IV PRN (13:29)
[2020-10-09] MEDS ORDERED: NS 0.9% 1000 ml BAG 1,000 ML IV SCH (16:00)
[2020-10-09 16:02] VITALS: BP 116/72
[2020-10-09] MEDS ORDERED: Al Hydrox/Mg Hydrox/Simet LIQ 30 ML UDC PO ONE (16:50)
== END 2020-10-09 17:37 | disposition home or self-care (01) ==
LOC: ED 12:20 → MEDTELE 12:20
PROVIDERS: ADMIT Internal Medicine; ATTEND Internal Medicine

== ENCOUNTER 2021-01-15 11:15 | Observation (INO) ==
[2021-01-15] MEDS ORDERED: Ondansetron 4 mg VIAL 2 MG/ML 2 ml VIAL IV ONE (13:58)
[2021-01-15] MEDS ORDERED: NS 0.9% 1000 ml BAG 1,000 ML IV ONE (13:58)
[2021-01-15 14:06] LABS: ABS Eosinophils 0.1 10^3/ul (0-0.6); ABS Lymphocytes 1.4 10^3/ul (1.0-4.8); ABS Monocytes 0.4 10^3/ul (0-0.8); ABS Neutrophils 4.3 10^3/ul (1.5-7.7); Eosinophil % 1.3 %; Hematocrit 40 % (35-47); Hemoglobin 13.1 g/dL (12.0-16.0); Lymphocyte % 22.6 %; Mean Corpuscular HGB Conc 33 g/dL (31-36); Mean Corpuscular Hemoglobin 29 pg (27-31); Mean Corpuscular Volume 87 fL (80-97); Mean Platelet Volume 8.2 fL (7.4-10.4); Platelet Count 279 10^3/uL (150-450); Red Blood Count 4.58 10^6 /uL (3.70-4.87); Red Cell Distribution Width 14 % (10-15); White Blood Count 6.2 10^3/uL (3.5-10.8)
[2021-01-15] MEDS ORDERED: Iodixanol (CONTRAST) 320 MG/ML 100 ML SDV IV ONE (14:06)
[2021-01-15 14:24] LABS: Albumin 4.4 g/dL (3.2-5.2); Albumin/Globulin Ratio 1.8 (1-3); C Reactive Protein 3.74 mg/L (<8.01); Calcium 9.6 mg/dL (8.6-10.3); EGFR African American 76.3 (>60); EGFR Non-African American 63.1 (>60); Globulin 2.4 g/dL (2-4); Potassium 4.1 mmol/L (3.5-5.0); Total Bilirubin 0.3 mg/dL (0.2-1.0); Total Protein 6.8 g/dL (6.4-8.9)
[2021-01-15 15:12] LABS: Urine Appearance Cloudy; Urine Bilirubin Negative (Negative); Urine Blood Negative (Negative); Urine Color Yellow; Urine Glucose Negative (Negative); Urine Ketones Negative (Negative); Urine Nitrite Negative (Negative); Urine Protein Negative (Negative); Urine Specific Gravity 1.012 (1.002-1.030); Urine Urobilinogen Negative (Negative)
[2021-01-15] MEDS ORDERED: Ondansetron 4 mg VIAL 2 MG/ML 2 ml VIAL IV PRN (17:40)
[2021-01-15] MEDS ORDERED: HYDROmorphone 1 MG/1 ML SYRINGE IV SLOW PU PRN (17:40)
[2021-01-15] MEDS ORDERED: Metoclopramide 5 MG/ML VIAL (10 mg) IV SLOW PU PRN (17:45)
[2021-01-15] MEDS ORDERED: Prochlorperazine 5 mg/ml 2 ml VIAL (10 mg) IV PRN (17:46)
[2021-01-15] MEDS ORDERED: diPHENhydraMINE IV 50 MG/ML 1 ml VIAL (BENADRYL) SLOW PUSH ONE (20:05)
[2021-01-15] MEDS: NS 0.9% 1000 ml BAG 1,000 ML IV SCH ×2 (20:09→23:41)
[2021-01-15] MEDS ORDERED: Lurasidone 120 mg TAB PO SCH (23:00)
[2021-01-15] MEDS: fentaNYL 100 mcg/2 ml 50 MCG/ML VIAL IV SLOW PU PRN (23:02)
[2021-01-16] MEDS: fentaNYL 100 mcg/2 ml 50 MCG/ML VIAL IV SLOW PU PRN ×3 (03:05→11:54)
[2021-01-16 06:52] LABS: Calcium 8.3 mg/dL (8.6-10.3); Potassium 4.2 mmol/L (3.5-5.0)
[2021-01-16 06:58] LABS: EGFR African American 77.2 (>60); EGFR Non-African American 63.8 (>60)
[2021-01-16] MEDS: NS 0.9% 1000 ml BAG 1,000 ML IV SCH (07:51)
[2021-01-16 11:28] LABS: ABS Eosinophils 0.1 10^3/ul (0-0.6); ABS Lymphocytes 1.3 10^3/ul (1.0-4.8); ABS Monocytes 0.3 10^3/ul (0-0.8); ABS Neutrophils 2.3 10^3/ul (1.5-7.7); Eosinophil % 2.4 %; Hematocrit 41 % (35-47); Hemoglobin 13.6 g/dL (12.0-16.0); Lymphocyte % 31.8 %; Mean Corpuscular HGB Conc 33 g/dL (31-36); Mean Corpuscular Hemoglobin 30 pg (27-31); Mean Corpuscular Volume 91 fL (80-97); Mean Platelet Volume 8.2 fL (7.4-10.4); Platelet Count 238 10^3/uL (150-450); Red Blood Count 4.57 10^6 /uL (3.70-4.87); Red Cell Distribution Width 15 % (10-15); White Blood Count 4.1 10^3/uL (3.5-10.8)
[2021-01-16] MEDS ORDERED: oxyCODONE/Acetamin 5/325 mg TAB PO PRN (14:27)
[2021-01-16 15:38] VITALS: BP 111/51
== END 2021-01-16 17:20 | disposition home or self-care (01) ==
LOC: ED 11:15 → SSU 11:15
PROVIDERS: ADMIT Internal Medicine; ATTEND Surgery Surgical Critical Care